=== PATIENT | female | born 1960 | race Caucasian/White ===

== ENCOUNTER 2019-08-08 15:30 | Outpatient (RCR) | payer BC, SELFPAY ==
--- NOTE | 2019-07-22 14:20 | PTOPEVAL ---
Thank you for referring this patient to [facility]. Please review, sign, date and return this plan of care LAVERNE. I agree with and certify that the following plan of care is medically necessary. Referring Physician Date Admitting Provider: Attending Provider: ASPHALT RAKER PHYSICIAN Referring Provider: *PT Outpatient Evaluation Start: 07/16/19 15:00 Freq: 1-2x/week Status: Active Protocol: Document 07/16/19 15:00 [facility] (Rec: 07/19/19 14:58 [facility] [email or web address]) Therapy Assessment Status Assessment Status Assessment Status Evaluation Outpatient Past Medical History Neurological History Hx Neurological Disorders No Significant History Cardiovascular History Hx Hypertension Yes Respiratory History Hx Respiratory Disorders No Significant History Gastrointestinal History Hx Gastrointestinal Disorders No Significant History Genitourinary History Hx Genitourinary Disorders No Significant History Musculoskeletal History Hx Arthritis Yes Hx Degenerative Disk Disease Yes: Neck and Back Hematological History Hx Hematological Disorders No Significant History Endocrine History Hx Other Endocrine Disorders Yes: Metabolic disorder HEENT History Hx HEENT Disorders No Significant History Integumentary History Hx Skin Disorders No Significant History Reproductive History Hx Reproductive Disorders No Significant History Psychosocial History Hx Psychiatric Disorders No Significant History Pain History History of Any Previous or Ongoing No Significant History Instance of Pain Anesthesia History Hx Anesthesia Reactions No Significant History Evaluation Information Problem Diagnosis Chronic knee pain Onset ~2 months ago Cause no known injury, likely arthritis Additional Evaluation Detail Meds include a HTN medication, Metformin, & Vitamins Subjective Information Pt has pain going up and down Query Text:As Reported By Patient/ steps. She is getting ready Family for a vacation that will require a lot of steps. She is also unable to ride a bike due to pain. Diagnostic Tests X-Rays For This Problem No MRI For This Problem No Previous Treatments Previous Treatments For This Problem None at this time Pain Assessment Timing of Pain Assessment Timing of Pain Assessment Assessment Self Report Self Report Pain Level 0 Self Report Pain Assessment Bilateral Reported Pain Level 0 Pain Description Aching,Stabbing,Tender on Palpation,Tightness Inte
== END 2019-10-14 13:46 | disposition home or self-care (01) ==
LOC: ANHPT 15:30
DX: M25.569 Pain in unspecified knee (principal); G89.29 Other chronic pain
CPT/HCPCS: 97035; 97110; 97140; 97161

== ENCOUNTER 2019-12-04 14:46 | Outpatient (CLI) | payer BC, SELFPAY ==
--- NOTE | ~2019-12-04 | US_ITS ---
EXAMINATION: US pelvic complete w TV EXAM DATE: 12/04/2019 15:20 INDICATION: Postmenopausal bleeding. TECHNIQUE: Pelvic transabdominal and transvaginal sonogram was performed. There are multiple graysca le and Doppler images available for interpretation. There is no prior study for comparison. FINDINGS: Uterus measures 6.1 x 3.1 x 4.3 cm, and is morphologically normal. Endometrial stripe anirudh sures 5 mm, within normal limits. There is no free pelvic fluid. Right adnexa: The ovary is not identified. There is no adnexal mass. Left adnexa: The ovary is not identified. There is no adnexal mass. IMPRESSION: 1. Unremarkable pelvic ultrasound exam. Reviewed, dictated and finalized at location A.
== END 2019-12-04 14:47 | disposition home or self-care (01) ==
LOC: ANHIMG 14:47
PROVIDERS: Visit Provider Internal Medicine
DX: N95.0 Postmenopausal bleeding (principal)
CPT/HCPCS: 76830; 76856

== ENCOUNTER 2019-12-05 15:30 | Outpatient (RCR) | payer BC, SELFPAY ==
--- NOTE | 2019-10-23 08:52 | PTOPEVAL ---
Thank you for referring Jayne Harman to [facility]. Please review, sign, date and return this plan of care LAVERNE. I agree with and certify that the following plan of care is medically necessary. Referring Physician Date Referring Provider: Connie Maria MD *PT Outpatient Re-evaluation Start: 10/15/19 08:18 Freq: 2x/week Status: Active Protocol: Document 10/15/19 16:30 [facility] (Rec: 10/23/19 08:49 [facility] [email or web address]) Therapy Assessment Status Assessment Status Assessment Status Re-evaluation Outpatient Past Medical History Neurological History Hx Neurological Disorders No Significant History Cardiovascular History Hx Hypertension Yes Musculoskeletal History Hx Arthritis Yes Hx Degenerative Disk Disease Yes: Neck and Back Hematological History Hx Hematological Disorders No Significant History Endocrine History Hx Other Endocrine Disorders Yes: Metabolic disorder Pain Assessment Timing of Pain Assessment Timing of Pain Assessment Assessment Pain Scale Pain Scale Used Numeric (1 - 10) Self Report Pain Assessment Bilateral Knee(s) Reported Pain Level 1 Pain Description Aching,Soreness,Tightness Other Pain Description Right now, not much pain but unable to go up/down steps w/o pain Greatest Pain Intensity 7 Pain Aggravating Factors Stair Climbing Pain Behaviors Guarding Pain Relief Interventions Used By Inactivity/Rest,Position Patient Change Interventions Used By Clinicians Exercise,Joint Mobilization, Mobilization,Manual Therapy Techniques,Myofascial Release Pain Score Pain Score 1: Self Report Additional Pain Score Comments Patient had been seen a couple of months ago but became ill with Covid-related symptoms for a prolonged period of time . She became weak and unable to participate in therapy. We placed her chart on Hold and she is now able to resume and participate in care. Lower Extremity Range of Motion Knee Range of Motion Bilateral Reason Not Measured WNL/Left,WNL/Right Knee Range of Motion Limitations Muscle Length Restriction Knee Range of Motion Comments Knee joint ROM itself is WNL; surrounding musculature is tight Patellar mobility is limited minimally Ankle/Foot Range of Flavio
--- NOTE | 2019-12-03 12:22 | PTOPEVAL ---
Thank you for referring Jayne Harman to [facility]. Please review, sign, date and return this plan of care LAVERNE. I agree with and certify that the following plan of care is medically necessary. Referring Physician Date Referring Provider: Connie Maria MD *PT Outpatient Evaluation Start: 10/15/19 08:18 Freq: Status: Active Protocol: Document 11/21/19 17:00 [facility] (Rec: 12/03/19 12:21 [facility] [email or web address]) Therapy Assessment Status Assessment Status Assessment Status Progress Pain Assessment Timing of Pain Assessment Timing of Pain Assessment Re-assessment Self Report Self Report Pain Level 0 Pain Score Pain Score 0: Self Report Lower Extremity Range of Motion General Lower Extremity Range of Motion Reason Not Measured WNL/Left,WNL/Right Knee Range of Motion Bilateral Reason Not Measured WNL/Left,WNL/Right Knee Range of Motion Limitations Muscle Length Restriction Knee Range of Motion Comments Knee joint ROM itself is WNL; surrounding musculature lends towards tightness but patient has been compliant with HEP. Hip availability has also improved. Patellar mobility is limited minimally Lower Extremity Muscle Strength Testing General Lower Extremity Strength Reason Not Measured WNL/Right,WFL/Left Gross Lower Extremity Strength Patient has demonstrated improved functional strength with progression of HEP and can go up and down steps in reciprocal fashion without pain. Palpation Assessment Palpation Palpation No c/o of tenderness this date . Stair Climbing Assessment Stair Climbing Assessment Stair Climbing Assistive Devices None Maintains Weight Bearing Status Yes Number of Steps Climbed (Steps) 4 Number of Repetitions (Repetitions) 5 Technique Alternating Steps Stair Climbing Direction Both Up and Down Stair Climbing Ability Independent Ability to Step Over a Curb Independent Stair Climbing Comments Pt fatigued after 20 steps but knee pain itself did not limit her. PT Clinical Summary Clinical Summary Protocol: PTEVCODE PT Clinical Summary Pt has demonstrated improvement in functional ability and strengthening. Due to her tissue make-up,
--- NOTE | 2020-02-10 10:26 | PTOPEVAL ---
Thank you for referring Jayne Harman to [facility].? The patient is discharged from physical therapy?and met her goals. Please review, sign, date and return this plan of care LAVERNE. I agree with and certify that the following plan of care is medically necessary. Referring Physician Date Attending Provider: Connie Maria MD
== END 2020-01-13 11:48 | disposition home or self-care (01) ==
LOC: ANHPT 15:30
DX: M25.562 Pain in left knee (principal); G89.29 Other chronic pain
CPT/HCPCS: 97110; 97140

== ENCOUNTER 2020-02-05 07:23 | Outpatient (CLI) | payer BC, SELFPAY ==
[2020-02-05 07:51] LABS: Basophils Percent Auto 0.8 % (0.2-1.2); Eosinophils Absolute Auto 0.1 K/mm3 (0-0.3); Eosinophils Percent Auto 1.8 % (0-4.4); Hematocrit 37.5 % (37.0-47.0); Hemoglobin 13.2 g/dL (12.0-15.0); Immature Granulocyte Absolute 0.01 K/mm3 (0.00-0.031); Immature Granulocyte Percent A 0.2 % (0-0.5); Lymphocytes Absolute Auto 1.63 K/mm3 (0.9-3.2); Mean Corpuscular HGB Conc 35.2 g/dl (32-36); Mean Corpuscular Hemoglobin 32.4 pg (26-34); Mean Corpuscular Volume 91.9 fl (80-100); Mean Platelet Volume 9.3 fl (7.4-10.4); Monocytes Absolute Auto 0.6 K/mm3 (0.1-0.6); Monocytes Percent Auto 11.9 % (2.6-8.5); Neutrophils Absolute Auto 2.6 K/mm3 (1.3-6.7); Neutrophils Percent Auto 52.3 % (45.5-73.1); Platelet Count Result 226 k/mm3 (150-375); Red Blood Count 4.08 M/mm3 (4.2-5.4); Red Cell Distribution Width 11.7 % (11.5-14.5); White Blood Count 4.9 K/mm3 (4.5-10.0)
[2020-02-05 07:58] LABS: Hemoglobin A1C 4.8 % (<5.7)
[2020-02-05 08:03] LABS: Alanine Aminotransferase 32 U/L (4-35); Albumin Level 4.3 g/dL (3.5-5.1); Alkaline Phosphatase 79 U/L (38-126); Anion Gap 8 mmol/L (8-16); Aspartate Amino Transferase 33 U/L (14-36); Bilirubin,Total 0.5 mg/dL (0.2-1.3); Blood Urea Nitrogen 15 mg/dL (7-17); Calcium 9.5 mg/dL (8.4-10.2); Carbon Dioxide 30 mmol/L (22-30); Chloride 91 mmol/L (98-107); Estimated Glomerular Filt Rate > 60; Glucose 98 mg/dL (65-105); Potassium 3.8 mmol/L (3.4-5.0); Sodium 129 mmol/L (137-145)
[2020-02-05 09:09] LABS: Hepatitis C Virus Antibody Negative (Negative)
--- NOTE | 2020-02-10 10:21 | PTOPEVAL ---
Thank you for referring Jayne Harman to [facility].? The patient has been discharged from physical therapy. She met her goal of being able to functionally ascend/descend stairs without pain/dysfunction. She is Independent with her HEP for continued strength and flexibility. Please review, sign, date and return this plan of care LAVERNE. I agree with and certify that the following plan of care is medically necessary. Referring Physician Date Attending Provider: Connie MariaMD
== END 2020-02-05 07:24 | disposition home or self-care (01) ==
PROVIDERS: Visit Provider Internal Medicine
DX: Z00.00 Encounter for general adult medical examination without abnormal findings (principal); Z11.59 Encounter for screening for other viral diseases; I10 Essential (primary) hypertension; E88.81 Metabolic syndrome and other insulin resistance; E78.5 Hyperlipidemia, unspecified
CPT/HCPCS: 36415; 80053; 83036; 85025; 86803

== ENCOUNTER 2020-04-24 13:49 | Outpatient (CLI) | payer BC, SELFPAY ==
--- NOTE | ~2020-04-24 | MM_ITS ---
EXAMINATION: MM screening yulia BI w viktoria HISTORY: Screening TECHNIQUE: Craniocaudal and mediolateral oblique 3-D tomosynthesis images were obtained and synthetic 2-D images were generated. CAD analysis was submitted and interpreted. COMPARISON: Comparison to multiple prior studies sequentially, with oldest reviewed study dated 04/15. BREAST PARENCHYMAL COMPOSITION: There are scattered areas of fibroglandular density. FINDINGS: There is no evidence of suspicious mass, calcification, or architectural distortion to sugg est malignancy in either breast. There has been no suspicious interval change. IMPRESSION: 1. No mammographic evidence of malignancy. 2. Recommend routine screening mammography in one year. BI-RADS Category 1: Negative Reviewed, dictated and finalized at location A. EL STAFF MEMBER
== END 2020-04-24 13:50 | disposition home or self-care (01) ==
PROVIDERS: PCP Internal Medicine; Visit Provider Obstetrics & Gynecology
DX: Z12.31 Encounter for screening mammogram for malignant neoplasm of breast (principal)
CPT/HCPCS: 77063; 77067

== ENCOUNTER 2021-02-04 08:04 | Outpatient (CLI) | payer BC, SELFPAY ==
[2021-02-04 08:31] LABS: Basophils Percent Auto 0.6 % (0.2-1.2); Eosinophils Absolute Auto 0.1 K/mm3 (0-0.3); Eosinophils Percent Auto 1.7 % (0-4.4); Hematocrit 39.4 % (37.0-47.0); Hemoglobin 13.3 g/dL (12.0-15.0); Immature Granulocyte Absolute 0.03 K/mm3 (0.00-0.031); Immature Granulocyte Percent A 0.5 % (0-0.5); Lymphocytes Absolute Auto 1.83 K/mm3 (0.9-3.2); Lymphocytes Percent Auto 27.9 % (18.3-44.2); Mean Corpuscular HGB Conc 33.8 g/dl (32-36); Mean Corpuscular Hemoglobin 32.1 pg (26-34); Mean Corpuscular Volume 95.2 fl (80-100); Mean Platelet Volume 9.2 fl (7.4-10.4); Monocytes Absolute Auto 0.6 K/mm3 (0.1-0.6); Monocytes Percent Auto 9.3 % (2.6-8.5); Neutrophils Absolute Auto 3.9 K/mm3 (1.3-6.7); Platelet Count Result 219 k/mm3 (150-375); Red Blood Count 4.14 M/mm3 (4.2-5.4); Red Cell Distribution Width 12.4 % (11.5-14.5); White Blood Count 6.6 K/mm3 (4.5-10.0)
[2021-02-04 08:41] LABS: Alanine Aminotransferase 35 U/L (4-35); Albumin Level 4.4 g/dL (3.5-5.1); Alkaline Phosphatase 92 U/L (38-126); Anion Gap 8 mmol/L (8-16); Aspartate Amino Transferase 38 U/L (14-36); Bilirubin,Total 0.5 mg/dL (0.2-1.3); Blood Urea Nitrogen 20 mg/dL (7-17); Calcium 9.8 mg/dL (8.4-10.2); Carbon Dioxide 32 mmol/L (22-30); Chloride 99 mmol/L (98-107); Cholesterol 207 mg/dL (0-200); Estimated Glomerular Filt Rate 51; Glucose 101 mg/dL (65-110); HDL Direct 64 mg/dL; Potassium 4.4 mmol/L (3.4-5.0); Sodium 139 mmol/L (137-145); Triglycerides 115 mg/dL (<150)
[2021-02-04 08:54] LABS: LDL Cholesterol Direct 108 mg/dL
[2021-02-04 08:58] LABS: Hemoglobin A1C 5.1 % (<5.7)
[2021-02-04 09:32] LABS: Vitamin B12 > 1000.0 pg/mL (239-931)
== END 2021-02-04 08:05 | disposition home or self-care (01) ==
LOC: ANHIMG 08:06
PROVIDERS: PCP Internal Medicine; Visit Provider Internal Medicine
DX: R41.3 Other amnesia (principal); R73.09 Other abnormal glucose; E78.5 Hyperlipidemia, unspecified; I10 Essential (primary) hypertension; Z00.00 Encounter for general adult medical examination without abnormal findings
CPT/HCPCS: 36415; 80053; 80061; 82607; 83036; 84443; 85025

== ENCOUNTER 2022-02-23 09:31 | Outpatient (CLI) | payer BC, SELFPAY ==
[2022-02-23 10:07] LABS: Basophils Absolute Auto 0.1 K/mm3 (0.0-0.1); Basophils Percent Auto 0.8 % (0.2-1.2); Eosinophils Absolute Auto 0.2 K/mm3 (0-0.3); Eosinophils Percent Auto 2.9 % (0-4.4); Hematocrit 40.9 % (37.0-47.0); Hemoglobin 14.1 g/dL (12.0-15.0); Immature Granulocyte Absolute 0.02 K/mm3 (0.00-0.031); Immature Granulocyte Percent A 0.3 % (0-0.5); Lymphocytes Absolute Auto 1.91 K/mm3 (0.9-3.2); Lymphocytes Percent Auto 30.8 % (18.3-44.2); Mean Corpuscular HGB Conc 34.5 g/dl (32-36); Mean Corpuscular Hemoglobin 31.6 pg (26-34); Mean Corpuscular Volume 91.7 fl (80-100); Monocytes Absolute Auto 0.5 K/mm3 (0.1-0.6); Monocytes Percent Auto 8.4 % (2.6-8.5); Neutrophils Absolute Auto 3.5 K/mm3 (1.3-6.7); Neutrophils Percent Auto 56.8 % (45.5-73.1); Platelet Count Result 258 k/mm3 (150-375); Red Blood Count 4.46 M/mm3 (4.2-5.4); White Blood Count 6.2 K/mm3 (4.5-10.0)
[2022-02-23 10:18] LABS: Hemoglobin A1C 5.2 % (<5.7)
[2022-02-23 10:20] LABS: Alanine Aminotransferase 41 U/L (6-35); Albumin Level 4.7 g/dL (3.5-5.1); Alkaline Phosphatase 89 U/L (38-126); Anion Gap 12 mmol/L (8-16); Aspartate Amino Transferase 42 U/L (14-36); Bilirubin,Total 0.6 mg/dL (0.2-1.3); Blood Urea Nitrogen 12 mg/dL (7-17); Calcium 9.7 mg/dL (8.4-10.2); Carbon Dioxide 29 mmol/L (22-30); Chloride 88 mmol/L (98-107); Cholesterol 204 mg/dL (0-200); Estimated Glomerular Filt Rate > 60; Glucose 105 mg/dL (65-110); HDL Direct 67 mg/dL; Phosphorus 3.6 mg/dL (2.5-4.5); Potassium 4.1 mmol/L (3.4-5.0); Sodium 129 mmol/L (137-145); Triglycerides 110 mg/dL (<150)
[2022-02-23 10:29] LABS: Parathyroid Intact 80.9 pg/mL (7.5-53.5)
[2022-02-23 10:31] LABS: LDL Cholesterol Direct 98 mg/dL
== END 2022-02-23 09:32 | disposition home or self-care (01) ==
LOC: ANHLAB 09:33
PROVIDERS: PCP Internal Medicine; Visit Provider Internal Medicine
DX: Z00.00 Encounter for general adult medical examination without abnormal findings (principal); I10 Essential (primary) hypertension; E78.5 Hyperlipidemia, unspecified; N18.31 Chronic kidney disease, stage 3a
CPT/HCPCS: 36415; 80053; 80061; 83036; 83970; 84100; 85025

== ENCOUNTER 2022-03-21 07:52 | Outpatient (CLI) | payer BC, SELFPAY ==
[2022-03-21 08:36] LABS: Alanine Aminotransferase 39 U/L (6-35); Albumin Level 4.5 g/dL (3.5-5.1); Alkaline Phosphatase 113 U/L (38-126); Anion Gap 11 mmol/L (8-16); Aspartate Amino Transferase 44 U/L (14-36); Bilirubin,Total 0.7 mg/dL (0.2-1.3); Blood Urea Nitrogen 13 mg/dL (7-17); Calcium 9.4 mg/dL (8.4-10.2); Carbon Dioxide 27 mmol/L (22-30); Chloride 104 mmol/L (98-107); Estimated Glomerular Filt Rate 57; Glucose 80 mg/dL (65-110); Potassium 4.3 mmol/L (3.4-5.0); Sodium 142 mmol/L (137-145)
[2022-03-21 09:26] LABS: Hepatitis C Virus Antibody Negative (Negative)
== END 2022-03-21 07:53 | disposition home or self-care (01) ==
PROVIDERS: PCP Internal Medicine; Visit Provider Internal Medicine
DX: Z11.59 Encounter for screening for other viral diseases (principal); G47.33 Obstructive sleep apnea (adult) (pediatric); I10 Essential (primary) hypertension
CPT/HCPCS: 36415; 80053; 86803

== ENCOUNTER 2022-03-24 07:44 | Outpatient (CLI) | payer BC, SELFPAY ==
--- NOTE | ~2022-03-24 | US_ITS ---
EXAMINATION: US right upper quadrant DATE: 03/24/2022 08:00 INDICATION: Elevated liver function tests TECHNIQUE: Multiple grayscale and Doppler ultrasound images of the abdomen were obtained. COMPARISON: None available FINDINGS: Bowel gas obscures visualization of the pancreas. The visualized portions of the pancreas a re unremarkable. The liver is normal with normal echogenicity and echotexture. No surface nodularity. Normal hepatopetal flow in the main portal vein. A stone is present in the nondistended gallbladder. There is no gallbladder wall thickening or pericholecystic fluid. The normal common bile duct measur es 3 mm. There was no sonographic García sign. IMPRESSION: 1. Cholelithiasis without evidence of cholecystitis. Reviewed, dictated and finalized at location B. BOSS
== END 2022-03-24 07:45 | disposition home or self-care (01) ==
PROVIDERS: PCP Internal Medicine; Visit Provider Internal Medicine
DX: R94.5 Abnormal results of liver function studies (principal); K80.20 Calculus of gallbladder without cholecystitis without obstruction
CPT/HCPCS: 76705

== ENCOUNTER 2022-04-05 11:39 | Observation (INO) | payer BC, SELFPAY ==
[2022-04-05] VITALS (28 sets, daily range): BP systolic 149–192; BP diastolic 64–95; PULSE 55–72; RESP 12–26; TEMP 36.2–36.8; O2SAT 94–100; BMI 32.4
--- NOTE | ~2022-04-05 | CT_ITS ---
EXAMINATION: CT brain wo con DATE: 04/05/2022 13:08 INDICATION: Headache and hypertension TECHNIQUE: Computed tomography (CT) of the head was performed without intravenous contrast. Sagittal and coronal reconstructions were performed. The mA was adjusted according to patient size. Iterative reconstruction technique was employed. The dose-length product was 681.00 mGy-cm. COMPARISON: head CT dated 02/12/2018 FINDINGS: Unchanged small old infarct at the anterior right temporal lobe. No acute intracranial hemorrhage, ac jeyson infarction or abnormal extra axial fluid collection. Ventricles are normal and symmetric. No mass /mass effect. The orbits, paranasal sinuses and mastoid air cells are normal. IMPRESSION: 1. Unchanged small old infarct at the anterior right temporal lobe. No acute intracranial process. Reviewed, dictated and finalized at location A. OF ENGLISH IMPRESSION: 1. Unchanged small old infarct at the anterior right temporal lobe. No acute in tracranial process.
--- NOTE | 2022-04-05 11:45 | ECG_ITS ---
Measurements Intervals [employer] Rate: 56 P: 20 IN: 190 QRS: 5 QRSD: 80 T: 14 QT: 435 QTc: 423 Interpretive Statements SINUS BRADYCARDIA BASELINE WANDER- V5-V6 BORDERLINE ECG NO PREVIOUS ECG AVAILABLE FOR COMPARISON Electronically Signed On 04-05-2022 14:08:53 [employer]ES [employer]PRESENT[employer] by Johnson Cote D.O.
--- NOTE | 2022-04-05 12:23 | ED.GENADULT ---
HPI - General Adult General Chief complaint: Headache Stated complaint: Headache Time Seen by Provider: 04/05/22 11:53 History of Present Illness HPI narrative: 61-year-old female with history of hypertension presenting to the emergency department for evaluation of headache. Patient states that last night she woke up with a headache. Through the night patient took multiple doses of Tylenol and ibuprofen and was having a minor improvement of the headache through the morning. Patient states that she did make it to work and her headache continued to worsen so she was instructed to check her blood pressure and she had a systolic blood pressure of greater than 200. Patient does take atenolol and lisinopril and states her blood pressure normally runs in the 110s range. Related Data Home Medications Medication Instructions Recorded Confirmed atenolol 100 mg tablet 100 mg PO BID 04/05/22 04/05/22 ibuprofen 600 mg tablet 600 mg PO QID PRN Pain 04/05/22 04/05/22 lisinopril 40 mg tablet 40 mg PO DAILY 04/05/22 04/05/22 omeprazole 20 mg capsule,delayed 20 mg PO DAILY 04/05/22 04/05/22 release Allergies Allergy/AdvReac Type Severity Reaction Status Date / Time No Known Allergies Allergy Verified 04/05/22 11:51 Review of Systems Review of Systems: CONSTITUTIONAL: Denies fever, chills, or sweats. EYES: Denies visual changes, redness, or discharge. ENT: Denies rhinorrhea, congestion, sore throat, or otalgia. CARDIOVASCULAR: Denies chest pain, palpitations, or edema. RESPIRATORY: Denies cough or dyspnea. GASTROINTESTINAL: Denies abdominal pain, nausea, vomiting, or diarrhea. GENITOURINARY: Denies dysuria or hematuria. SKIN: Denies rash or itching. MUSCULOSKELETAL: Denies back pain, joint pain, or myalgia. NEUROLOGIC: Headache but denies any associated numbness or weakness PSYCHIATRIC: Denies anxiety or depression. [facility] Past Medical History Medical History (Updated 04/05/22 @ 23:35 by Blas Posey MD) Arthritis Cerebrovascular accident Brain CT on 04/05/2022 shows and unchanged small old infarct at the anterior right temporal lobe. Gastroesophageal reflux disease Hyperlipidemia No longer on a statin following weight loss. Hypertension Obstructive sleep apnea Surgical History Surgical History (Updated 04/05/22 @ 22:09 by Kelly Hope PA-C) History of fusion of cervical spine History of sinus surgery History of wisdom tooth extraction Family History Family History Father Family history of congenital heart disease Mother Family history of chronic obstructive pulmonary disease Other Hypertension Social History Social History (Updated 04/05/22 @ 22:09 by Kelly Hope PA-C) Social History: Surrogate medical decision maker: Mariano Ingrams, spouse. Code status: Full code. Smoking status: Never smoker Alcohol intake: current Drinks per week: 7 Alcohol use details: One alcoholic beverage a night. Substance use: never Lack of Transportation: No Lack of Food: Never True Current Housing: I Have Housing Concerned About Future Housing: No Difficulty Paying Gas/Electric Bills: No Difficulty Paying for Meds: No Currently Unemployed: No Education: Associate Degree Difficulty w/ Childcare or Family Care: No Additional living arrangements comments: The patient lives with her in [place]. 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 Spiritual care concerns: No Exam Narrative: APPEARANCE: Well appearing, no pain, no distress, well-nourished. HEAD: normocephalic, atraumatic. EYES: PERRLA/EOMI, conjunctivae clear. NOSE: Normal no drainage THROAT: Pharynx clear, no exudate. NECK: Supple. No adenopathy, no masses. RESPIRATORY: Airway patent, respirations nonlabored. Clear to auscultation bilaterally, no rales, rhonchi, wheezing. CARDIOVASCULAR: Regular rate and rhyth
[2022-04-05 12:39] LABS: Basophils Percent Auto 0.8 % (0.2-1.2); Eosinophils Absolute Auto 0.1 K/mm3 (0-0.3); Eosinophils Percent Auto 2.7 % (0-4.4); Hemoglobin 13.7 g/dL (12.0-15.0); Immature Granulocyte Absolute 0.01 K/mm3 (0.00-0.031); Immature Granulocyte Percent A 0.2 % (0-0.5); Lymphocytes Absolute Auto 1.78 K/mm3 (0.9-3.2); Lymphocytes Percent Auto 33.7 % (18.3-44.2); Mean Corpuscular HGB Conc 32.6 g/dl (32-36); Mean Corpuscular Hemoglobin 31.1 pg (26-34); Mean Corpuscular Volume 95.2 fl (80-100); Mean Platelet Volume 9.8 fl (7.4-10.4); Monocytes Absolute Auto 0.6 K/mm3 (0.1-0.6); Monocytes Percent Auto 11.4 % (2.6-8.5); Neutrophils Absolute Auto 2.7 K/mm3 (1.3-6.7); Neutrophils Percent Auto 51.2 % (45.5-73.1); Platelet Count Result 235 k/mm3 (150-375); Red Blood Count 4.41 M/mm3 (4.2-5.4); Red Cell Distribution Width 13.3 % (11.5-14.5); White Blood Count 5.3 K/mm3 (4.5-10.0)
[2022-04-05 12:47] LABS: Appearance Urine Clear (Clear); Bilirubin Urine Negative (Negative); Blood Urine Negative (Negative); Color Urine Yellow (Yellow); Glucose Urine UA Negative (Negative); Ketones Urine Negative (Negative); Leukocyte Esterase Ur Trace LEU/UL (Negative); Nitrate Urine Negative (Negative); Protein Urine Negative (Negative); Specific Grav Ur 1.015 (1.001-1.035); Urobilinogen Urine 0.2 mg/dL (<2.0); pH Urine 6.5 (5.0-9.0)
[2022-04-05] MEDS: hydrALAZINE HCL 20 MG/ML VIAL 10 MG IV PUSH ×3 (12:47→20:18)
[2022-04-05 12:51] LABS: Add Urine Microscopic? YES; Bacteria Urine Trace /hpf; RBC Urine 0-2 /hpf (0-2); Squamous Epithelial Cell Urine Few /hpf (Few); WBC Urine 0-3 /hpf
[2022-04-05 12:52] LABS: Alanine Aminotransferase 31 U/L (6-35); Albumin Level 4.2 g/dL (3.5-5.1); Alkaline Phosphatase 112 U/L (38-126); Anion Gap 10 mmol/L (8-16); Aspartate Amino Transferase 34 U/L (14-36); Bilirubin,Total 0.7 mg/dL (0.2-1.3); Blood Urea Nitrogen 15 mg/dL (7-17); Calcium 9.4 mg/dL (8.4-10.2); Carbon Dioxide 27 mmol/L (22-30); Chloride 102 mmol/L (98-107); Estimated CRCL calculation 62 ml/min; Estimated Glomerular Filt Rate 57; Glucose 97 mg/dL (65-110); Sodium 139 mmol/L (137-145)
[2022-04-05] MEDS: KETOROLAC 15 MG/ML VIAL (*BKC) IV PUSH ×2 (15:55→23:12)
[2022-04-05] MEDS: amLODIPine BESYLATE 5 MG TABLET PO (15:56)
[2022-04-05] MEDS: HYDROmorphone HCL INJ (*CRX) 1 MG/ML SYR 0.5 MG IV PUSH (16:40)
[2022-04-05] MEDS: MAGNESIUM SULF 1 GM/D5W 100 ML 1 GM/100 ML BAG IVPB (16:40)
--- NOTE | 2022-04-05 18:00 | PM.IMHP ---
H&P: HPI History of Present Illness Date/Time: 04/05/22 18:00 Chief Complaint: Headache and elevated blood pressure. Narrative: This is a very pleasant 61-year-old female with hypertension who presented to the emergency department for evaluation of headache and elevated blood pressures. Two felt just fine when she went to bed last night and a little after midnight she was wakened from sleep with a doll albeit quite severe headache that seemed to start behind the left eye and radiated to the left side the head. She has mild photophobia with the headache and nausea and in fact she has had a couple of episodes of emesis this today. She took some ibuprofen was able to fall asleep a couple of hours before the headache once again woke her from sleep. She took 2 other doses of ibuprofen and a dose of acetaminophen over the next 4 hours or so. She was able to sleep a few more hours and got up at 09:00, showered, and came in to work. Unfortunately the headache continued to worsen at which time she phoned her physician who instructed her to check her blood pressure. Blood pressure was 208/103 and she was directed to the emergency department where she received magnesium, ketorolac, hydromorphone, and hydralazine with improvement in her blood pressures into the 160s over 70s. ED physician spoke with the patient's primary doctor who requested that the patient be given a dose of amlodipine 5 milligrams and she would be okay with discharge to follow-up if the blood pressure remained under better control. Unfortunately her headache continues and her blood pressures have once again started to climb, in the high 170s to low 190s systolic and she is being admitted in this setting. It is rare for her to have headaches though she has had migraines remotely. She has not had any recent cold or flu symptoms. She denies chest pain, palpitations, and shortness of breath. She has not had any neurologic symptoms and specifically she has not had vertigo, facial droop, dysarthria, focal weakness, or paresthesias. It should be noted that the patient has lost about 45 pounds since this summer and last month her chlorthalidone was discontinued due to improvements in her blood pressures. Review of Systems Review of Systems: Twelve systems were reviewed and are negative except for as per HPI. [facility] Past Medical History Medical History (Updated 04/05/22 @ 23:35 by Blas Posey MD) Arthritis Cerebrovascular accident Brain CT on 04/05/2022 shows and unchanged small old infarct at the anterior right temporal lobe. Gastroesophageal reflux disease Hyperlipidemia No longer on a statin following weight loss. Hypertension Obstructive sleep apnea Surgical History Surgical History (Updated 04/05/22 @ 22:09 by Kelly Hope PA-C) History of fusion of cervical spine History of sinus surgery History of wisdom tooth extraction Family History Family History Father Family history of congenital heart disease Mother Family history of chronic obstructive pulmonary disease Other Hypertension Social History Social History (Updated 04/05/22 @ 22:09 by Kelly Hope PA-C) Social History: Surrogate medical decision maker: Mariano Harman, spouse. Code status: Full code. Smoking status: Never smoker Alcohol intake: current Drinks per week: 7 Alcohol use details: One alcoholic beverage a night. Substance use: never Lack of Transportation: No Lack of Food: Never True Current Housing: I Have Housing Concerned About Future Housing: No Difficulty Paying Gas/Electric Bills: No Difficulty Paying for Meds: No Currently Unemployed: No Education: Associate Degree Difficulty w/ Childcare or Family Care: No Additional living arrangements comments: The patient lives with her in [place]. 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 Spiritual care
[2022-04-05] MEDS: lisinopriL 20 MG TABLET 40 MG PO (18:32)
[2022-04-05] MEDS: atenoloL 50 MG TABLET 100 MG PO (18:32)
[2022-04-05 19:23] LABS: SARS-CoV-2 RNA PCR Negative
[2022-04-05] MEDS: ONDANSETRON INJ 4 MG/2 ML VIAL IV PUSH (20:19)
--- NOTE | 2022-04-05 21:23 | ADMGEN ---
This patient, Jayne Harman, was admitted to IMU Room 2114. Patient/family oriented to hospital policies and general routines including ID bracelet, bed and alarms, visiting hours, pain management, procedures, bathroom and other care routines, personal items, smoking policy, room service/diet, and visiting hours. Information on how to activate the Rapid Response Team has been discussed. Patient/Family are encouraged to report perceived risks to care and to ask questions if they do not understand what they are told or what they should do.
[2022-04-05] MEDS: PROMETHAZINE HCL 25 MG/ML AMPUL IM (23:11)
[2022-04-06] VITALS (9 sets, daily range): BP systolic 115–167; BP diastolic 49–84; PULSE 60–89; RESP 14–20; TEMP 36.5–36.7; O2SAT 98–100
[2022-04-06 07:43] LABS: Anion Gap 7 mmol/L (8-16); Blood Urea Nitrogen 14 mg/dL (7-17); Calcium 9.3 mg/dL (8.4-10.2); Carbon Dioxide 26 mmol/L (22-30); Chloride 101 mmol/L (98-107); Estimated CRCL calculation 77 ml/min; Estimated Glomerular Filt Rate > 60; Glucose 101 mg/dL (65-110); Magnesium 1.9 mg/dL (1.6-2.3); Potassium 4.7 mmol/L (3.4-5.0); Sodium 134 mmol/L (137-145)
[2022-04-06] MEDS: hydrALAZINE HCL 20 MG/ML VIAL 10 MG IV PUSH (09:05)
[2022-04-06] MEDS: lisinopriL 20 MG TABLET 40 MG PO (11:44)
[2022-04-06] MEDS: atenoloL 50 MG TABLET 100 MG PO (11:44)
[2022-04-06] MEDS: PANTOPRAZOLE 40 MG TABLET PO (11:44)
[2022-04-06] MEDS: ACETAMINOPHEN 500 MG TABLET 1000 MG PO (11:49)
--- NOTE | 2022-04-06 14:12 | PM.DS ---
DS: Admitting Diagnosis Discharge Date 04/06/2022 Admitting Diagnosis Hypertensive urgency DS: Summary Hospital Course Hospital Course: This is a very pleasant 61-year-old female with hypertension who presented to the emergency department for evaluation of headache and elevated blood pressures. Blood pressure was 208/103 and she was directed to the emergency department where she received magnesium, ketorolac, hydromorphone, and hydralazine with improvement in her blood pressures into the 160s over 70s. ED physician spoke with the patient's primary doctor who requested that the patient be given a dose of amlodipine 5 milligrams and she would be okay with discharge to follow-up if the blood pressure remained under better control. Unfortunately her headache continues and her blood pressures have once again started to climb, in the high 170s to low 190s systolic and she is being admitted in this setting. CT head is negative. Patient's home medications of beta-alberto and lisinopril were continued and blood pressure has come back to normal. Patient advised to keep a log of her blood pressure at home and show it to her PCPs he can adjust blood pressure medications accordingly. Patient is being discharged home Time Spent with Patient Time attestation: Total time spent providing and/or coordinating discharge services: Exam Const: Other: Mildly ill-appearing female sitting up in bed. Weight: 94 kilograms. BMI: 32.5. HENMT: Other: Normocephalic, atraumatic. Nares patent. Mucosa moist. Eyes: Other: Pupils are reactive. Extraocular motions intact. Sclerae anicteric. Conjunctiva mildly injected. Neck: Other: Supple. No carotid bruits. Resp: Other: Respirations are nonlabored. Lungs are clear to auscultation bilaterally. Cardio: Other: Regular rate rhythm with normal S1-S2. GI: Other: Abdomen is soft, nontender, and nondistended with positive bowel sounds. Skin: Other: Warm and dry. No rash or lesion on limited exam. Neuro: Other: Alert and oriented. Cranial nerves 2-12 are grossly intact. No facial asymmetry. Speech is clear. No pronator drift. Normal vvhqfp-[id number]-lfil and rapid alternating movements. Strength 5/5 throughout. Sensation intact. Extrem: Other: No cyanosis, clubbing, or edema. Peripheral pulses intact. Psych: Other: Pleasant and cooperative. Appropriate mood and affect. DS: Data Data Completed and Pending Labs on day of discharge: Labs from last 24 hours 04/06/22 04/05/22 04:28 18:28 Sodium 134 L Potassium 4.7 Chloride 101 Carbon Dioxide 26 Anion Gap 7 L BUN 14 Creatinine 0.80 Estim Creat Clear Calc 77 Estimated GFR > 60 Glucose 101 Calcium 9.3 Magnesium 1.9 SARS-CoV-2 RNA (RT-PCR) Negative Discharge Plan Discharge Discharging Clinician: David Wagner Anticipated Discharge Date/Time: 04/06/22 11:51 Patient Disposition: Home, Self-Care Activity: september shower Diet: heart healthy Patient Instructions: Hypertensive Crisis (DC) Stand Alone Forms: General Discharge Information Follow-up/Referrals: Heladio,Connie Farrell MD [Primary Care Provider] - Discharge Medications: Continued atenolol 100 mg tablet 100 mg PO BID omeprazole 20 mg capsule,delayed release(DR/EC) 20 mg PO DAILY lisinopril 40 mg tablet 40 mg PO DAILY Discontinued ibuprofen 600 mg tablet 600 mg PO QID PRN (Reason: Pain) Date of admission: 04/05/22 18:01 Primary Care Provider: HeladioConnie Admitting Provider: Abiel Bach Attending physician on admission: David Wagner Condition: Stable
== END 2022-04-06 14:00 | disposition home or self-care (01) ==
LOC: ANHED 15:37 → ANHIMU 20:26
PROVIDERS: Physician Assistant; Admitting Provider Chiropractor; Emergency Provider Emergency Medicine; PCP Internal Medicine; Visit Provider Hospitalist
DX: I16.0 Hypertensive urgency (principal); I11.9 Hypertensive heart disease without heart failure; R51.9 Headache, unspecified; R11.2 Nausea with vomiting, unspecified; H53.149 Visual discomfort, unspecified; G47.33 Obstructive sleep apnea (adult) (pediatric); R00.1 Bradycardia, unspecified; K21.9 Gastro-esophageal reflux disease without esophagitis; M19.90 Unspecified osteoarthritis, unspecified site; E78.5 Hyperlipidemia, unspecified; F10.90 Alcohol use, unspecified, uncomplicated; Z20.822 Contact with and (suspected) exposure to COVID-19; Z86.73 Personal history of transient ischemic attack (TIA), and cerebral infarction without residual deficits; Z79.1 Long term (current) use of non-steroidal anti-inflammatories (NSAID); Z79.899 Other long term (current) drug therapy; Z82.49 Family history of ischemic heart disease and other diseases of the circulatory system
CPT/HCPCS: 36415; 70450; 80048; 80053; 81001; 83735; 85025; 93005; 96365; 96372; 96375; 96376; 99285; A9270; G0378; J0131; J0360; J1170; J1885; J2405; J2550; J3475; U0003; U0005

== ENCOUNTER 2022-06-02 13:22 | Outpatient (CLI) | payer BC, SELFPAY ==
--- NOTE | ~2022-06-02 | MM_ITS ---
EXAMINATION: MM screening [facility] BI w viktoria HISTORY: Screening mammogram TECHNIQUE: Craniocaudal and mediolateral oblique 3-D tomosynthesis images were obtained and synthetic 2-D images were generated. CAD analysis was submitted and interpreted. COMPARISON: 04/24/2020, 02/22/2019, 11/08/2016 BREAST PARENCHYMAL COMPOSITION: There are scattered areas of fibroglandular density. FINDINGS: No suspicious mass, calcification, or architectural distortion are identified in either ronit ast to suggest malignancy. There has been no suspicious interval change. IMPRESSION: 1. No mammographic evidence of malignancy. 2. Recommend routine screening mammography in one year. BI-RADS Category 1: Negative Reviewed, dictated and finalized at location A. CUTTER
== END 2022-06-02 13:23 | disposition home or self-care (01) ==
PROVIDERS: PCP Internal Medicine; Visit Provider Obstetrics & Gynecology
DX: Z12.31 Encounter for screening mammogram for malignant neoplasm of breast (principal)
CPT/HCPCS: 77063; 77067

== ENCOUNTER 2022-06-06 08:06 | Outpatient (CLI) | payer BC, SELFPAY ==
[2022-06-06 08:50] LABS: Alanine Aminotransferase 34 U/L (6-35); Albumin Level 4.5 g/dL (3.5-5.1); Alkaline Phosphatase 123 U/L (38-126); Anion Gap 7 mmol/L (8-16); Aspartate Amino Transferase 33 U/L (14-36); Bilirubin,Total 0.8 mg/dL (0.2-1.3); Blood Urea Nitrogen 18 mg/dL (7-17); Calcium 9.4 mg/dL (8.4-10.2); Carbon Dioxide 27 mmol/L (22-30); Chloride 93 mmol/L (98-107); Estimated Glomerular Filt Rate 57; Glucose 85 mg/dL (65-110); Sodium 127 mmol/L (137-145)
== END 2022-06-06 08:07 | disposition home or self-care (01) ==
LOC: ANHLAB 08:10
PROVIDERS: PCP Internal Medicine
DX: I10 Essential (primary) hypertension (principal)
CPT/HCPCS: 36415; 80053

== ENCOUNTER 2022-07-07 08:22 | Outpatient (CLI) | payer BC, SELFPAY ==
[2022-07-07 09:22] LABS: Anion Gap 7 mmol/L (8-16); Blood Urea Nitrogen 18 mg/dL (7-17); Carbon Dioxide 30 mmol/L (22-30); Chloride 105 mmol/L (98-107); Estimated Glomerular Filt Rate > 60; Glucose 88 mg/dL (65-110); Potassium 4.6 mmol/L (3.4-5.0); Sodium 142 mmol/L (137-145)
== END 2022-07-07 08:23 | disposition home or self-care (01) ==
PROVIDERS: PCP Internal Medicine; Visit Provider Internal Medicine
DX: I10 Essential (primary) hypertension (principal)
CPT/HCPCS: 36415; 80048

== ENCOUNTER 2022-10-21 08:56 | Emergency (ER) | payer BC, SELFPAY ==
[2022-10-21] VITALS (16 sets, daily range): BP systolic 141–163; BP diastolic 66–85; PULSE 62–75; RESP 8–25; O2SAT 96–100
--- NOTE | ~2022-10-21 | XR_ITS ---
EXAMINATION: XR chest 2V DATE: 10/21/2022 09:56 INDICATION: Stroke. Vision change. TECHNIQUE: Frontal and lateral views of the chest were obtained. COMPARISON: Chest 2 views 02/12/2018 FINDINGS: The chest demonstrates clear lungs without pneumonia, pleural effusion, or pneumothorax. Th e heart size is normal. There are changes of anterior fusion procedure in cervical spine. There is mi ld chronic anterior wedging of T11 and T12 vertebral bodies. IMPRESSION: 1. No acute cardiopulmonary disease. Reviewed, dictated and finalized at location A.
--- NOTE | ~2022-10-21 | CT_ITS ---
EXAMINATION: CTA brain carotid DATE: 10/21/2022 10:12 INDICATION: Left eye vision change. TECHNIQUE: Computed tomographic angiography (CTA) of the head was performed without and with 100 mL O mnipaque-350 intravenous contrast. CTA of the neck was performed with intravenous contrast. Automated exposure control and iterative reconstruction technique were employed. The dose-length product was 1 729.10 mGy-cm. Maximum intensity projection and volume rendered 3D-reconstructions were created by tara mayers technologist on a separate workstation. COMPARISON: Head CT 04/05/2022, brain MRI 02/23/2016 FINDINGS: HEAD CTA: There is a small old infarct in right temporal lobe. There is no intracranial hemorrhage, a cute infarction, or abnormal intracranial mass lesion. The ventricles are normal in size. The paranas al sinuses are clear. The orbits are normal. There is a screw in left zygoma. There is a dislodged sc rew superficial to right maxillary sinus. The mastoid air cells are normal. The left vertebral artery is dominant. There is no significant stenosis of basilar artery or the posterior cerebral arteries. There is no significant stenosis of the intracranial internal carotid arteries or anterior or middle cerebral arteries. Anterior communicating artery is normal. The posterior communicating arteries are normal. There is no aneurysm. NECK CTA: There is mild scarring at the lung apices. There are no pathologically enlarged lymph nodes . There is a 5 mm nodule in right thyroid lobe, likely not clinically significant. There is mild plaq ue in the proximal internal carotid arteries. There is 0% stenosis of the proximal right internal car otid artery relative to normal distal artery lumen diameter (NASCET criteria). There is 0% stenosis o f the proximal left internal carotid artery relative to normal distal artery lumen diameter. There is severe cervical spondylosis. There are changes of anterior fusion procedure at C5-C6. IMPRESSION: 1. Small old infarct in right temporal lobe. 2. No aneurysm or significant intracranial arterial stenosis. 3. 0% stenosis of the proximal internal carotid arteries relative to normal distal artery lumen diame ters (NASCET criteria). Reviewed, dictated and finalized at location A. IMPRESSION: 1. Small old infarct in right temporal lobe. 2. No aneurysm or significant intracranial arterial stenosis. 3. 0% stenosis of the proximal internal carotid arteries relative to normal dis ange artery lumen diameters (NASCET criteria).
--- NOTE | 2022-10-21 08:59 | PC.NURSE ---
Patient report she was sitting in her office doing her normal work when she noticed some visual defect. She reports she was looking at words on the computer and it was like an arch was around the letters with bright light and sharp points off of the arch. Patient reports history of HTN and issues with her blood pressure but went to another department and checked her BP and reported it normal. Patient reports she spoke to a doctor in [place] and he told her it could be concerning for a stroke. Patient ambulatory to the ED with her normal cane, exhibits no weakness or drift, no facial droop noted, and no change in speech.
--- NOTE | 2022-10-21 09:07 | ECG_ITS ---
Measurements Intervals [place] Rate: 61 P: 8 ID: 156 QRS: 14 QRSD: 85 T: 17 QT: 374 QTc: 378 Interpretive Statements SINUS RHYTHM WITHIN NORMAL LIMITS COMPARED TO ECG 04/05/2022 12:12:26 NO DIFFERENCE Electronically Signed On 10-21-2022 12:52:01 CDT by Abiel Delatorre M.D.
--- NOTE | 2022-10-21 09:18 | PC.NURSE ---
Patient reports the arc is now gone and she no longer sees the bright white area or spikes.
[2022-10-21 09:34] LABS: Basophils Percent Auto 0.7 % (0.2-1.2); Eosinophils Absolute Auto 0.1 K/mm3 (0-0.3); Eosinophils Percent Auto 1.4 % (0-4.4); Hematocrit 41.4 % (37.0-47.0); Hemoglobin 13.4 g/dL (12.0-15.0); Immature Granulocyte Absolute 0.01 K/mm3 (0.00-0.031); Immature Granulocyte Percent A 0.2 % (0-0.5); Lymphocytes Absolute Auto 1.73 K/mm3 (0.9-3.2); Lymphocytes Percent Auto 30.5 % (18.3-44.2); Mean Corpuscular HGB Conc 32.4 g/dl (32-36); Mean Corpuscular Hemoglobin 30.2 pg (26-34); Mean Corpuscular Volume 93.5 fl (80-100); Mean Platelet Volume 9.7 fl (7.4-10.4); Monocytes Absolute Auto 0.6 K/mm3 (0.1-0.6); Monocytes Percent Auto 10.8 % (2.6-8.5); Neutrophils Absolute Auto 3.2 K/mm3 (1.3-6.7); Neutrophils Percent Auto 56.4 % (45.5-73.1); Platelet Count Result 221 k/mm3 (150-375); Red Blood Count 4.43 M/mm3 (4.2-5.4); Red Cell Distribution Width 13.7 % (11.5-14.5); White Blood Count 5.7 K/mm3 (4.5-10.0)
[2022-10-21 09:42] LABS: INR 0.9; Prothrombin Time 12.4 Seconds (11.1-14.7)
[2022-10-21 09:43] LABS: Partial Thromboplastin Time 32.6 SECONDS (22.3-36.8)
[2022-10-21 09:46] LABS: Troponin I < 0.012 ng/mL (0.000-0.034)
[2022-10-21 09:51] LABS: Alanine Aminotransferase 41 U/L (6-35); Albumin Level 4.4 g/dL (3.5-5.1); Alkaline Phosphatase 87 U/L (38-126); Anion Gap 5 mmol/L (8-16); Aspartate Amino Transferase 48 U/L (14-36); Bilirubin,Total 0.6 mg/dL (0.2-1.3); Blood Urea Nitrogen 18 mg/dL (7-17); Calcium 9.4 mg/dL (8.4-10.2); Carbon Dioxide 32 mmol/L (22-30); Chloride 104 mmol/L (98-107); Estimated CRCL calculation 64 ml/min; Estimated Glomerular Filt Rate 56; Glucose 94 mg/dL (65-110); Potassium 4.8 mmol/L (3.4-5.0); Sodium 141 mmol/L (137-145)
--- NOTE | 2022-10-21 11:57 | ED.GENADULT ---
HPI - General Adult General Chief complaint: Unspecified Stated complaint: neuro sx Time Seen by Provider: 10/21/22 08:57 History of Present Illness HPI narrative: Patient is a 62-year-old female who presents ER with visual disturbance. Reports at around 8:45 AM she began having bright lights in her left eye. It out in the periphery of her vision. Its become rainbow in color as well. She discussed case with someone in her department who recommended she be evaluated in the ER as she may be having a stroke. Patient has no facial droop or weakness. Denies slurred speech. No weakness or numbness in arm or leg. She has no history of migraines. She does not have a headache at this time. She was looking at her computer monitor when it occurred. Related Data Home Medications Medication Instructions Recorded Confirmed atenolol 100 mg tablet 100 mg PO BID 04/05/22 04/05/22 lisinopril 40 mg tablet 40 mg PO DAILY 04/05/22 04/05/22 omeprazole 20 mg capsule,delayed 20 mg PO DAILY 04/05/22 04/05/22 release Allergies Allergy/AdvReac Type Severity Reaction Status Date / Time No Known Allergies Allergy Verified 10/21/22 09:06 Review of Systems Review of Systems: All systems reviewed & are unremarkable except as noted in HPI and below Eyes: Eyes: Denies irritation, Denies loss of peripheral vision, Denies loss of vision and Reports other visual disturbances (Bright light and rainbow coloring left lateral and upper peripheral vision) Cardiovascular: Cardiovascular: Reports no additional cardiovascular complaints Respiratory: Respiratory: Reports no additional respiratory complaints Gastrointestinal: Gastrointestinal: Reports no additional gastrointestinal complaints Musculoskeletal: Musculoskeletal: Reports no additional musculoskeletal complaints Neurologic: Reports system reviewed and no additional complaints, except as documented [facility] Past Medical History Medical History (Updated 10/21/22 @ 12:01 by Chester Gómez MD) Arthritis Cerebrovascular accident Brain CT on 04/05/2022 shows and unchanged small old infarct at the anterior right temporal lobe. Gastroesophageal reflux disease Hyperlipidemia No longer on a statin following weight loss. Hypertension Obstructive sleep apnea Surgical History Surgical History (Updated 04/05/22 @ 22:09 by Kelly Hope PA-C) History of fusion of cervical spine History of sinus surgery History of wisdom tooth extraction Family History Family History Father Family history of congenital heart disease Mother Family history of chronic obstructive pulmonary disease Other Hypertension Social History Social History (Updated 04/05/22 @ 22:09 by Kelly Hope PA-C) Social History: Surrogate medical decision maker: Mariano Harman, spouse. Code status: Full code. Smoking status: Never smoker Alcohol intake: current Drinks per week: 7 Alcohol use details: One alcoholic beverage a night. Substance use: never Lack of Transportation: No Lack of Food: Never True Current Housing: I Have Housing Concerned About Future Housing: No Difficulty Paying Gas/Electric Bills: No Difficulty Paying for Meds: No Currently Unemployed: No Education: Associate Degree Difficulty w/ Childcare or Family Care: No Additional living arrangements comments: The patient lives with her in [place]. 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 Spiritual care concerns: No Exam Narrative: GENERAL: Well-appearing, well-nourished, and in no acute distress. HEAD: Normocephalic, atraumatic. EYES: PERRL and EOMI. ENT: Mucous membranes moist. CHEST: Clear to auscultation. No respiratory distress. HEART: Regular rate and rhythm. Normal peripheral pulses. ABDOMEN: Soft, nontender, nondistended. EXTREMITIES: Normal range of motion. No edema. SKIN: Warm
== END 2022-10-21 12:13 | disposition home or self-care (01) ==
PROVIDERS: Emergency Provider Emergency Medicine; PCP Internal Medicine
DX: H53.8 Other visual disturbances (principal); I10 Essential (primary) hypertension; M19.90 Unspecified osteoarthritis, unspecified site; K21.9 Gastro-esophageal reflux disease without esophagitis; G47.33 Obstructive sleep apnea (adult) (pediatric); Z86.73 Personal history of transient ischemic attack (TIA), and cerebral infarction without residual deficits; Z98.1 Arthrodesis status
CPT/HCPCS: 36415; 70496; 70498; 71046; 80053; 84484; 85025; 85610; 85730; 93005; 99284; Q9967

== ENCOUNTER → 2022-11-07 13:52 | Outpatient (CLI) | payer BC, SELFPAY ==
--- NOTE | ~2022-11-07 | MR_ITS ---
EXAMINATION: MR brain/brain stem wo con DATE: 11/07/2022 14:34 INDICATION: Vision changes. Stroke. TECHNIQUE: Magnetic resonance imaging (MRI) of the brain and brainstem was performed without intraven ous contrast. Sequences included sagittal and axial T1-weighted SE, axial diffusion-weighted FS SE, a xial T2*-weighted GRE, axial 3D SWAN, axial T2-weighted FLAIR, and axial T2-weighted FSE. Apparent di ffusion coefficient (ADC) maps were created. COMPARISON: None. FINDINGS: There are no areas of restricted diffusion to suggest acute infarction. No intracranial hemorrhage or abnormal intracranial mass lesion. There are no intraparenchymal signal abnormalities seen on the ot her pulse sequences. The ventricles are symmetric and normal in size. There are no abnormal extra-axi al fluid collections. Flow voids are seen in the cerebral arteries on the T2-weighted sequences consi stent with their expected patency. Small foci of susceptibility artifact associated with small metall ic screws along the bilateral anterior orbital rims. Visualized orbits and soft tissues are otherwise unremarkable. IMPRESSION: 1. Normal for age brain. No acute intracranial process. Reviewed, dictated and finalized at location A.
== END ==
PROVIDERS: PCP Internal Medicine; Visit Provider Internal Medicine
DX: H53.9 Unspecified visual disturbance (principal); Z86.73 Personal history of transient ischemic attack (TIA), and cerebral infarction without residual deficits
CPT/HCPCS: 70551

== ENCOUNTER 2023-03-31 07:15 | Outpatient (CLI) | payer BC, SELFPAY ==
[2023-03-31 08:44] LABS: Basophils Percent Auto 0.5 % (0.2-1.2); Eosinophils Absolute Auto 0.2 K/mm3 (0-0.3); Eosinophils Percent Auto 2.7 % (0-4.4); Hematocrit 41.6 % (37.0-47.0); Hemoglobin 13.1 g/dL (12.0-15.0); Immature Granulocyte Absolute 0.02 K/mm3 (0.00-0.031); Immature Granulocyte Percent A 0.4 % (0-0.5); Lymphocytes Absolute Auto 1.65 K/mm3 (0.9-3.2); Lymphocytes Percent Auto 30.2 % (18.3-44.2); Mean Corpuscular HGB Conc 31.5 g/dl (32-36); Mean Corpuscular Hemoglobin 29.6 pg (26-34); Mean Corpuscular Volume 93.9 fl (80-100); Monocytes Absolute Auto 0.6 K/mm3 (0.1-0.6); Neutrophils Percent Auto 55.2 % (45.5-73.1); Platelet Count Result 241 k/mm3 (150-375); Red Blood Count 4.43 M/mm3 (4.2-5.4); Red Cell Distribution Width 15.1 % (11.5-14.5); White Blood Count 5.5 K/mm3 (4.5-10.0)
[2023-03-31 09:03] LABS: Alanine Aminotransferase 45 U/L (6-35); Albumin Level 4.2 g/dL (3.5-5.1); Alkaline Phosphatase 98 U/L (38-126); Anion Gap 11 mmol/L (8-16); Aspartate Amino Transferase 44 U/L (14-36); Bilirubin,Total 0.5 mg/dL (0.2-1.3); Blood Urea Nitrogen 17 mg/dL (7-17); Calcium 9.8 mg/dL (8.4-10.2); Carbon Dioxide 28 mmol/L (22-30); Chloride 104 mmol/L (98-107); Cholesterol 228 mg/dL (0-200); Estimated Glomerular Filt Rate 50; Glucose 99 mg/dL (65-110); HDL Direct 61 mg/dL; Potassium 4.7 mmol/L (3.4-5.0); Sodium 143 mmol/L (137-145); Triglycerides 123 mg/dL (<150)
[2023-03-31 09:14] LABS: LDL Cholesterol Direct 117 mg/dL
== END 2023-03-31 07:16 | disposition home or self-care (01) ==
LOC: ANHLAB 07:17
PROVIDERS: PCP Internal Medicine; Visit Provider Internal Medicine
DX: Z00.00 Encounter for general adult medical examination without abnormal findings (principal); E78.5 Hyperlipidemia, unspecified; I10 Essential (primary) hypertension; R73.09 Other abnormal glucose
CPT/HCPCS: 36415; 80053; 80061; 83036; 85025

== ENCOUNTER 2023-08-29 08:18 | Outpatient (CLI) | payer BC, SELFPAY ==
[2023-08-29 09:44] LABS: Alanine Aminotransferase 43 U/L (6-35); Albumin Level 4.6 g/dL (3.5-5.1); Alkaline Phosphatase 102 U/L (38-126); Anion Gap 6 mmol/L (4-12); Aspartate Amino Transferase 40 U/L (14-36); Bilirubin,Total 0.8 mg/dL (0.2-1.3); Blood Urea Nitrogen 16 mg/dL (7-17); Calcium 9.8 mg/dL (8.4-10.2); Carbon Dioxide 29 mmol/L (22-30); Chloride 105 mmol/L (98-107); Estimated Glomerular Filt Rate 56; Glucose 110 mg/dL (65-110); Potassium 4.3 mmol/L (3.4-5.0); Sodium 140 mmol/L (137-145)
== END 2023-08-29 08:19 | disposition home or self-care (01) ==
LOC: ANHIMG 08:22 → ANHLAB 08:24
PROVIDERS: PCP Internal Medicine; Visit Provider Internal Medicine
DX: I10 Essential (primary) hypertension (principal)
CPT/HCPCS: 36415; 80053

== ENCOUNTER 2023-10-30 07:55 | Outpatient (CLI) | payer BC, SELFPAY ==
--- NOTE | ~2023-10-30 | US_ITS ---
EXAMINATION: US retroperitoneal duplex ltd DATE: 10/30/2023 08:14 INDICATION: Uncontrolled hypertension. TECHNIQUE: Multiple grayscale, color Doppler, and pulsed Doppler images of the kidneys and renal kim ines were obtained. COMPARISON: None. FINDINGS: The aorta peak systolic velocity was not measured. The right renal artery peak systolic velocity is 1 25 cm/s in the proximal segment, 87 cm/s in the mid segment, and 108 cm/s in the distal segment. The left renal artery peak systolic velocity is 129 cm/s in the proximal segment, 125 cm/s in the mid seg ment, and 61 cm/s in the distal segment. IMPRESSION: 1. No Doppler evidence of renal artery stenosis. Reviewed, dictated and finalized at location E.
== END 2023-10-30 07:56 ==
LOC: GOSHIMG 07:56
PROVIDERS: PCP Internal Medicine; Visit Provider Internal Medicine
DX: I10 Essential (primary) hypertension (principal)
CPT/HCPCS: 93976

== ENCOUNTER 2023-11-03 13:25 | Outpatient (CLI) | payer BC, SELFPAY | END 2023-11-03 13:26 | disposition home or self-care (01) | PROVIDERS: PCP Internal Medicine; Visit Provider Internal Medicine | DX: I10 Essential (primary) hypertension (principal) | CPT/HCPCS: 36415; 82088 ==

== ENCOUNTER 2023-12-12 11:51 | Outpatient (CLI) | payer BC, SELFPAY ==
--- NOTE | ~2023-12-12 | MM_ITS ---
EXAMINATION: MM screening [facility] BI w viktoria HISTORY: Screening TECHNIQUE: Craniocaudal and mediolateral oblique 3-D tomosynthesis images were obtained and synthetic 2-D images were generated. CAD analysis was submitted and interpreted. COMPARISON: Comparison to multiple prior studies sequentially, with oldest reviewed study dated 04/16. BREAST PARENCHYMAL COMPOSITION: Not dense: There are scattered areas of fibroglandular density. FINDINGS: There is no evidence of suspicious mass, calcification, or architectural distortion to sugg est malignancy in either breast. There has been no suspicious interval change. IMPRESSION: 1. No mammographic evidence of malignancy. 2. Recommend routine screening mammography in one year. BI-RADS Category 1: Negative Reviewed, dictated and finalized at location B.
== END 2023-12-12 11:52 | disposition home or self-care (01) ==
LOC: ANHIMG 11:53
PROVIDERS: PCP Internal Medicine; Visit Provider Obstetrics & Gynecology
DX: Z12.31 Encounter for screening mammogram for malignant neoplasm of breast (principal)
CPT/HCPCS: 77063; 77067

== ENCOUNTER 2024-02-05 10:58 | Outpatient (CLI) | payer BC, SELFPAY ==
[2024-02-13 16:44] LABS: PRA 0.58
== END 2024-02-05 10:59 | disposition home or self-care (01) ==
PROVIDERS: PCP Internal Medicine; Visit Provider Internal Medicine
DX: I10 Essential (primary) hypertension (principal)
CPT/HCPCS: 36415; 82088; 84244

== ENCOUNTER 2024-03-18 11:10 | Outpatient (CLI) | payer BC, SELFPAY ==
[2024-03-18 11:33] LABS: Anion Gap 11 mmol/L (4-12); Blood Urea Nitrogen 19 mg/dL (7-17); Calcium 10.1 mg/dL (8.4-10.2); Carbon Dioxide 28 mmol/L (22-30); Chloride 102 mmol/L (98-107); Estimated Glomerular Filt Rate 42; Glucose 97 mg/dL (65-110); Potassium 4.7 mmol/L (3.4-5.0); Sodium 141 mmol/L (137-145)
== END 2024-03-18 11:11 | disposition home or self-care (01) ==
LOC: ANHLAB 11:11
PROVIDERS: PCP Internal Medicine; Visit Provider Internal Medicine
DX: I10 Essential (primary) hypertension (principal)
CPT/HCPCS: 36415; 80048

== ENCOUNTER 2024-09-03 09:15 | Outpatient (CLI) | payer BC, SELFPAY ==
[2024-09-03 09:50] LABS: Basophils Percent Auto 0.5 % (0.2-1.2); Eosinophils Absolute Auto 0.2 K/mm3 (0-0.3); Eosinophils Percent Auto 2.4 % (0-4.4); Hematocrit 39.3 % (37.0-47.0); Hemoglobin 12.3 g/dL (12.0-15.0); Immature Granulocyte Absolute 0.04 K/mm3 (0.00-0.031); Immature Granulocyte Percent A 0.5 % (0-0.5); Lymphocytes Absolute Auto 2.08 K/mm3 (0.9-3.2); Lymphocytes Percent Auto 27.4 % (18.3-44.2); Mean Corpuscular HGB Conc 31.3 g/dl (32-36); Mean Corpuscular Volume 95.9 fl (80-100); Mean Platelet Volume 9.5 fl (7.4-10.4); Monocytes Absolute Auto 0.7 K/mm3 (0.1-0.6); Monocytes Percent Auto 9.7 % (2.6-8.5); Neutrophils Absolute Auto 4.5 K/mm3 (1.3-6.7); Neutrophils Percent Auto 59.5 % (45.5-73.1); Platelet Count Result 214 k/mm3 (150-375); Red Cell Distribution Width 13.7 % (11.5-14.5); White Blood Count 7.6 K/mm3 (4.5-10.0)
[2024-09-03 10:10] LABS: Hemoglobin A1C 5.7 % (<5.7)
[2024-09-03 10:16] LABS: Alanine Aminotransferase 37 U/L (6-35); Albumin Level 4.1 g/dL (3.5-5.1); Alkaline Phosphatase 100 U/L (38-126); Anion Gap 8 mmol/L (4-12); Aspartate Amino Transferase 28 U/L (14-36); Bilirubin,Total 0.4 mg/dL (0.2-1.3); Blood Urea Nitrogen 22 mg/dL (7-17); Calcium 9.8 mg/dL (8.4-10.2); Carbon Dioxide 28 mmol/L (22-30); Chloride 104 mmol/L (98-107); Cholesterol 200 mg/dL (0-200); Estimated Glomerular Filt Rate 46; Glucose 110 mg/dL (65-110); HDL Direct 65 mg/dL; LDL Cholesterol Direct 82 mg/dL; Sodium 140 mmol/L (137-145); Triglycerides 109 mg/dL (<150)
--- OUTSIDE RECORDS SUMMARY | 2024-09-03 10:17 | XMS_ITS | Encounter Summary ---
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 Historical Provider Final Res ult * SCAN - LABS (02/15/2018 12:00 AM CDT) Narrative 02/15/2018 12:00 AM CDT Ordered by an unspecified provider. us Historical Provider Final Res ult * SCAN - LABS (02/15/2018 12:00 AM CDT) Narrative 02/15/2018 12:00 AM CDT Ordered by an unspecified provider. us Historical Provider Final Res ult * CARDIOLOGY REPORT (02/15/2018 12:00 AM CDT) Anatomical Region Laterality Modality Other Narrative 02/15/2018 12:00 AM CDT Ordered by an unspecified provider. Historical Provider [facility] [place] Final Result documented in this encounter Visit Diagnoses Not on filedocumented in this encounter Additional Health Concerns Infection Onset Date Last Indicated Resolved Time COVID: Suspected 09/03/2019 09/03/2019 09/17/2019 3:06 AM CDT COVID19 Comment:JULY AND NEG IN 03/16/2020 03/15/2020 documented as of this encounter Care Teams Pet Caregiver Relationship Specialty Start Date End Date Connie Maria MD PCP - General Internal Medicine 02/12/18 documented as of this encounter
--- OUTSIDE RECORDS SUMMARY | 2024-09-03 10:17 | XMS_ITS | Encounter Summary ---
Author Organization [facility] Address [address] [place] [address] Care Team Providers Care Project Management Instructor Name Role Phone Connie Maria MD Primary Care Provider Encounter Details Date Type Department Care Team (Late st Contact Info) Description 01/31/2008 Orders Only [facility] Health Information Management [address] [place] [address] Scanning, Provider Social History Tobacco Use Types Packs/Day Years Used Date Smoking Tobacco: Never Assessed Comments Unknown Sex and Gender Information Value Date Recorded Sex Assigned at Not on file 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 Gender Identity Not on file Sexual Orientation Not on file documented as of this encounter Plan of Treatment Not on file documented as of this encounter Procedures Procedure Name Priority Date/Time Associated Diagnosis Comments PULMONARY - RESULT SCAN 01/31/2008 documented in this encounter Results * PULMONARY - RESULT SCAN (01/31/2008) Anatomical Region Laterality Modality Other us Provider Scanning Final Result documented in this encounter Visit Diagnoses Not on filedocumented in this encounter Additional Health Concerns Infection Onset Date Last Indicated Resolved Time COVID: Suspected 09/03/2019 09/03/2019 09/17/2019 3:06 AM CDT COVID19 Comment:JULY AND NEG IN 03/16/2020 03/15/2020 documented as of this encounter Care Teams Project Management Instructor Relationship Specialty Start Date End Date Connie Maria MD PCP - General Internal Medicine 02/12/18 documented as of this encounter
--- OUTSIDE RECORDS SUMMARY | 2024-09-03 10:18 | XMS_ITS | Clinical Summary ---
Author Organization [facility] [address] Address [address] [place] [address] Care Team Providers Care Activities Counselor Name Role Phone Connie Maria MD Primary Care Provider Allergies No known active allergies Medications aspirin 81 mg chewable tablet Take 1 tablet (81 mg total) by mouth daily Active mometasone (NASONEX) 50 mcg/actuation nasal spray Administer 2 sprays into each nostril daily Active oxymetazoline HCl (VICKS SINEX ULTRA FINE MIST 12 NASL) Administer into affected nostril(s) Active clobetasoL (TEMOVATE) 0.05 % ointment Apply topically 2 (two) times a day 60 g 2 4 Active cholecalciferol, vitamin D3, (D3-5000 ORAL) Take by mouth A ctive zinc gluconate 30 mg tablet Take by mouth Act david magnesium oxide 400 mg magnesium capsule Take by mouth Active pyridoxine (VITAMIN B-6) 100 mg tablet Take 1 tablet (100 mg total) by mouth daily Active cyanocobalamin, vitamin B-12, (B-12 DOTS ORAL) Take by mouth Active atorvastatin (LIPITOR) 40 mg tablet Take 1 tablet (40 mg total) by mouth daily 90 tablet 3 4 Active diclofenac sodium (VOLTAREN) 1 % gel APPLY 4 GRAMS TOPICALLY 4 TIMES A DAY 400 g 1 4 Active carvediloL (COREG) 25 mg tablet Take 1 tablet (25 mg total) by mouth 2 (two) times a day with meals 180 tablet 3 4 02/02/20 25 Active hydrALAZINE (APRESOLINE) 50 mg tabletIndication s:hypertension Take 1 tablet (50 mg total) by mouth 3 (three) times a day 90 tablet 11 4 Active spironolactone (ALDACTONE) 25 mg tablet Take 1 tablet (25 mg total) by mouth daily 30 tablet 11 4 03/05/20 25 Active furosemide (LASIX) 20 mg tablet TAKE 1 TABLET DAILY NEEDED FOR SWELLING 90 tablet 1 4 Active omeprazole (PriLOSEC) 20 mg capsuleIndicatio ns:Gastroesophag eal reflux disease without esophagitis TAKE 1 CAPSULE DAILY 90 capsule 1 4 Active lisinopriL (PRINIVIL,ZESTRI L) 40 mg tablet TAKE 1 TABLET DAILY 90 tablet 1 5 Active IBU 600 mg tablet TAKE 1 TABLET DAILY 90 tablet 1 5 Active amoxicillin-clav ulanate (AUGMENTIN) 875-125 mg per tablet Take 1 tablet by mouth 2 (two) times a day for 10 days 20 tablet 5 08/09/19 25 methylPREDNISolo ne (MEDROL DOSEPACK) 4 mg Dosepack Take as directed on package. 21 tablet 5 08/26/19 25 Active Problems Problem Noted Date Diagnosed Date Stage 3a chronic kidney disease 03/05/2024 Morbid (severe) obesity due to excess calories 0 09/14/2021 Herpes zoster without complication 08/04/2020 Assessment & Plan (08/04/2020 9:33 AM CDT): - continue valacyclovir - discussed typical course of shingles - avoid contact of lesions with other people - f/u as needed Class 2 obesity due to exces s calories without serious comorbidity with body mass index (BMI) of 38.0 to 38.9 in adult 08/04/2020 Assessment & Plan (08/04/2020 9:33 AM CDT): - recommend a healthy diet and regular exercise as you are able for weight loss Obstructive sleep apnea (adult) (pediatric) 11/2018 Dependence on other enabling machines and device s 07/19/2018 Allergic rhinitis 02/15/2018 Dyslipidemia 02/15/2018 Hypertension 02/15/2018 Gastroesophageal reflux disease without esophagi tis 02/15/2018 Metabolic syndrome 02/15/2018 Ataxia 07/11/2016 Osteoarthritis of cervical spine 07/11/2016 Abnormal gait 07/04/2014 Resolved Problems Problem Noted Date Diagnosed Date Resolved Date Diabetes mellitus 09/14/2021 09/14/2021 Encounters Date Type Department Care Team Description 09/03/2024 Telephone [facility] Primary Care [address] [place] [phone] Connie Maria MD Test Results 07/29/2024 E-Visit [facility] Primary Care [address] [place] [phone] Connie Maria MD Your Medications from Last 3 Months Immunizations Immunization Administration Dates Next Due Influenza, Quadrivalent, Spl it, Intramuscular 03/07/2017,02/13/2016,03/02/2015 Influenza, Quadrivalent, Spl it, Preservative Free, Intramuscular 02/27/2023 Influenza, Trivalent, Preser vative Free, Intramuscular 02/23/2024 Influenza, Unspecified 02/23/2022,2020,02/13/2020,02/12,02/12/2018 Pfizer SARS-CoV-2 Monovalent Vaccination (12+ Yrs) PURPLE 05/25/2020,05/04/2020 Tdap 02/21/2021,02/20/2020 Surgical History Surgery Date Site/Laterality Comments SPINAL FUSION c 5 c 6, discectomy Medical History Medical History Date Comments Hypertension Sleep apnea MVP (mitral valve prolapse) Gallstones Arthritis Family History Medical History Relation Name Comments Diabetes Father Merle Aukamp Hearing loss Father Merle Aukamp Heart attack Father Merle Aukamp Heart disease Father Merle Aukamp Family history of cardiac disorder - (Added by TW Conv) Alzheimer's disease Maternal Grandfather Rainer Ibrahimter Alzheimer's disease Mother Tammiriana Joycecandelaria Cancer Mother Tammisusi Joycecandelaria Hearing loss Mother Tammi Goetz Alzheimer's disease Paternal Grandmother Romi Goetz Relation Name Status Comments Father Merle Aukamp Alive Maternal Grandfather Rainer Jones Mother Tammi Goetz Alive Paternal Grandmother Romi Goetz Social History Tobacco Use Types Packs/Day Years Used Date Smoking Tobacco: Never Cigarettes Smokeless Tobacco: Never Alcohol Use Standard Drinks/Week Comments Yes 0 (1 standard drink = 0.6 oz pur e alcohol) AUDIT-C Answer Date Recorded Q1: How often do you have a drink containing alc ohol? 2-4 times a month 08/07/2023 Q2: How many drinks containi ng alcohol do you have on a typical day when you are drinking? 1 or 2 08/07/2023 Q3: How often do you have si x or more drinks on one occasion? 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 Gender Identity Not on file Sexual Orientation Not on file Obstetrics History Last Filed Vital Signs Vital Sign Reading Time Taken Comments Blood Pressure 118/72 05/02/2024 3:28 PM FIELD OPERATIONS FARM MANAGER Pulse 82 05/02/2024 3:28 PM FIELD OPERATIONS FARM MANAGER Temperature 35.8 C (96.5 F) 03/26/2024 1:00 PM FIELD OPERATIONS FARM MANAGER Respiratory Rate 16 03/05/2024 7:20 AM CDT Oxygen Saturation 96% 05/02/2024 3:28 PM FIELD OPERATIONS FARM MANAGER Inhaled Oxygen Concentration - - Weight 113.6 kg (250 lb 6.4 oz) 05/02/2024 3:28 PM FIELD OPERATIONS FARM MANAGER Height 168.9 cm (5' 6.5 ) 05/02/2024 3:28 PM FIELD OPERATIONS FARM MANAGER Body Mass Index 39.81 05/02/2024 3:28 PM FIELD OPERATIONS FARM MANAGER Plan of Treatment Health Maintenance Due Date Last Done Comments Hepatitis C Screening 1960 Hepatitis B Screening 08/29[birth year]1979 Zoster Vaccine (1 of 2) 08/29/2011 Covid-19 Vaccine ( season) 2024 06/04/2021, 05/25/2020, 05/04/2020 Breast Cancer Screening-Mammogram 12/11/2024 12/12/2023, 06/02/2022, 04/24/2020, Additional history exists Cervical Cancer Screening 12/31/20242019, 01/01/2020, 06/04/2014 Depression Screening 03/05/2025 03/05/2024, 03/05/2024, 09/04/2023, Additional history exists Regular Well Visit/Exam 18-64 03/05/2025 03/05/2024, 03/03/2023, 03/01/2022, Additional history exists Colon Cancer Screening-Colonoscopy 03/16/2025 03/16/2020, 02/08/2016 DTaP/Tdap/Td Vaccine (3 - Td or Tdap) 02/21/2031 02/21/2021, 02/20/2020 Colon Cancer Screening-CT Colonography Discontinued 03/16/2020, 02/08/2016 Colon Cancer Screening-DNA Stool Discontinued 03/16/2020, 02/08/2016 Colon Cancer Screening-FIT Discontinued 03/16/2020, Colon Cancer Screening-Sigmoidoscopy Discontinued 03/16/2020, 02/08/2016 Influenza Vaccine Completed 02/23/2024, , 02/23/2022, Additional history exists Pneumococcal vaccine <65 Aged Out No longer eligible based on patient's age to complete this topic Procedures Procedure Name Priority Date/Time Associated Diagnosis Comments MAMMOGRAPHY Routine 12/12/2023 COLONOSCOPY Routine 03/16/2020 HM PAP SMEAR WITH HPV Routine 01/01/2020 from Last 3 Months or Most Recently Relevant to Health Maintenance Results * HM MAMMOGRAPHY (12/12/2023) Mammography Normal us Historical Provider HEALTH MAINTENANCE Final Result * Colonoscopy (03/16/2020) Anatomical Region Laterality Modality Other us Historical Provider ENDOSCOPY PROCEDURES Cyndi l Result * PAP SMEAR WITH HPV (01/01/2020) HM Pap smear Normal us Historical Provider HEALTH MAINTENANCE Final Result from Last 3 Months or Most Recently Relevant to Health Maintenance Additional Health Concerns Infection Onset Date Last Indicated COVID19 Comment:JULY AND NEG IN 03/16/2020 03/15/2020 [place] [employer] [place] [employer] [place] [employer] [facility] Care Teams Activities Counselor Relationship Specialty Start Date End Date Connie Maria MD PCP - General Internal Medicine 02/12/18
--- OUTSIDE RECORDS SUMMARY | 2024-09-03 10:18 | XMS_ITS | Referral Summary ---
Author Organization [facility] [place] [address] Address [address] [place] [address] Care Team Providers Care Resin Filterer Name Role Phone Connie Maria MD Primary Care Provider Encounters Date Type Department Care Team Description 09/03/2024 Telephone [facility] Primary Care [address] [place] [address] [place] [phone] Connie Maria MD Test Results 07/29/2024 E-Visit [facility] Primary Care [address] [place] [address] [place] [phone] Connie Maria MD Your Medications from Last 3 Months Allergies No known active allergies Medications aspirin [...] Date Resolved Date Diabetes mellitus 09/14/2021 09/14/2021 Immunizations Immunization Administration Dates Next Due Influenza, Quadrivalent, Spl it, Intramuscular 03/07/2017,02/13/2016,03/02/2015 Influenza, Quadrivalent, Spl it, Preservative Free, Intramuscular 02/27/2023 Influenza, Trivalent, Preser vative Free, Intramuscular 02/23/2024 Influenza, Unspecified 02/23/2022,2020,02/13/2020,02/12,02/12/2018 Pfizer SARS-CoV-2 Monovalent Vaccination (12+ Yrs) PURPLE 05/25/2020,05/04/2020 Tdap 02/21/2021,02/20/2020 Social History Tobacco Use Types Packs/Day Years [...] on file Legal Sex Female 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 Gender Identity Not on file Sexual Orientation Not on file Last Filed Vital Signs Vital Sign Reading Time Taken Comments Blood Pressure 118/72 05/02/2024 3:28 PM UTILITY WORKER DRIVER Pulse 82 05/02/2024 3:28 PM UTILITY WORKER DRIVER Temperature 35.8 C (96.5 F) 03/26/2024 1:00 PM UTILITY WORKER DRIVER Respiratory Rate 16 03/05/2024 7:20 AM CDT Oxygen Saturation 96% 05/02/2024 3:28 PM UTILITY WORKER DRIVER Inhaled Oxygen Concentration - - Weight 113.6 kg (250 lb 6.4 oz) 05/02/2024 3:28 PM UTILITY WORKER DRIVER Height 168.9 cm (5' 6.5 ) 05/02/2024 3:28 PM UTILITY WORKER DRIVER Body Mass Index 39.81 05/02/2024 3:28 PM UTILITY WORKER DRIVER Plan of Treatment Not on file Procedures Procedure Name Priority Date/Time Associated Diagnosis Comments MAMMOGRAPHY Routine 12/12/2023 COLONOSCOPY Routine 03/16/2020 HM PAP SMEAR WITH HPV Routine 01/01/2020 from Last 3 Months or Most Recently Relevant to Health Maintenance Results * MAMMOGRAPHY (12/12/2023) Mammography Normal us Historical Provider [...] Comment:JULY AND NEG IN 03/16/2020 03/15/2020 Insurance [employer] Care Teams Resin Filterer Relationship Specialty Start Date End Date Connie Maria MD PCP - General Internal Medicine 02/12/18
[2024-09-03 10:24] LABS: Vitamin D 25 Hydroxy 61.5 ng/mL
[2024-09-03 11:19] LABS: Anion Gap 9 mmol/L (4-12); Blood Urea Nitrogen 22 mg/dL (7-17); Calcium 9.7 mg/dL (8.4-10.2); Carbon Dioxide 27 mmol/L (22-30); Chloride 104 mmol/L (98-107); Estimated Glomerular Filt Rate 47; Glucose 105 mg/dL (65-110); Sodium 140 mmol/L (137-145)
== END 2024-09-03 09:16 | disposition home or self-care (01) ==
PROVIDERS: PCP Internal Medicine; Visit Provider Nurse Practitioner
DX: Z00.00 Encounter for general adult medical examination without abnormal findings (principal); E55.9 Vitamin D deficiency, unspecified; E78.5 Hyperlipidemia, unspecified
CPT/HCPCS: 36415; 80048; 80053; 80061; 82306; 83036; 85025

== ENCOUNTER 2024-10-06 15:57 | Emergency (ER) | payer BC, SELFPAY ==
--- OUTSIDE RECORDS SUMMARY | 2024-10-06 15:59 | XMS_ITS | Clinical Summary ---
Author Organization [facility] [address] Address [address] [place] [address] Care Team Providers Care Warehouse Operations Manager Name Role Phone Connie Maria MD Primary [...] mouth 2 (two) times a day for 21 days 42 tablet 5 10/01/19 25 polyethylene glycol (GoLYTELY) 236-22.74-6.74 -5.86 gram solutionIndicati ons:History of colon polyps Take 4,000 mL by mouth once for 1 dose 4000 mL 5 09/11/19 25 Active Problems Problem Noted Date Diagnosed Date History of colon polyps 09/10/2024 Stage 3a chronic kidney disease 03/05/2024 Morbid [...] Encounters Date Type Department Care Team Description 09/10/2024 Orders Only [facility] Gastroenterology at [address] [phone] Davy Shultz MD History of colon polyps (Primary Dx) 09/09/2024 4:00 PM CDT Office Visit [facility] Primary Care [address] [place] [phone] Connie Maria MD Routine general medical examination at a health care facility (Primary Dx); Primary hypertension; Stage 3a chronic kidney disease (HCC); Dyslipidemia; Obstructive sleep apnea (adult) (pediatric); Morbid (severe) obesity due to excess calories (HCC); BMI 39.0-39.9,adult; Chronic left-sided low back pain without sciatica; History of colon polyps; Colon cancer screening; Chronic maxillary sinusitis 09/04/2024 Telephone [facility] Primary Care [address] [place] [phone] Kika Retana NP Test Results; Call Back 09/03/2024 [place] [facility] [place] [address] [place] [phone] Scanning, Provider 09/03/2024 Telephone [facility] Primary Care [address] [place] [phone] Connie Maria MD Test Results 07/29/2024 E-Visit [facility] Primary Care [address] [place] [phone] Connie Maria MD Your Medications from Last 3 Months Immunizations Immunization Administration Dates Next Due Influenza, Quadrivalent, Spl it, Intramuscular 03/07/2017,02/13/2016,03/02/2015 Influenza, Quadrivalent, Spl it, Preservative Free, Intramuscular 02/27/2023 Influenza, Trivalent, Preser vative Free, Intramuscular 02/23/2024 Influenza, Unspecified 02/23/2022,2020,02/13/2020,02/12,02/12/2018 Pfizer SARS-CoV-2 Monovalent Vaccination (12+ Yrs) PURPLE 05/25/2020,05/04/2020 Tdap 02/21/2021,02/20/2020 Surgical History Surgery Date Site/Laterality Comments SPINAL FUSION c 5 c 6, discectomy CATARACT EXTRACTION 06/15/2024 - 07/12/2024 Bilateral Medical History Medical History Date Comments Hypertension Sleep apnea MVP (mitral valve prolapse) Gallstones Arthritis Family History Medical History Relation Name Comments Diabetes Father Yaritza Goetz Hearing loss Father Yaritza Goetz Heart attack Father Yaritza Goetz Heart disease Father Yaritza Goetz Family history of cardiac disorder - (Added by TW Conv) Alzheimer's disease Maternal Grandfather Rainer Jones Alzheimer's disease Mother Tammi Goetz Cancer Mother Tammi Goetz Hearing loss Mother Tammi Goetz Alzheimer's disease Paternal Grandmother Romi Goetz Relation Name Status Comments Father Yaritza Goetz Alive Maternal Grandfather Rainer Jones Mother Tammi [...] points, staff should administer the PHQ-9) 0 09/09/2024 PHQ-9 Answer Date Recorded PHQ-9 Total Score 1 03/05/2024 Comments No Sex and Gender Information Value Date Recorded Sex Assigned at Not on file Legal Sex Female 3:07 AM BOILERMAKER LOFTSMAN Gender Identity Not on file Sexual Orientation Not on file Obstetrics History Last Filed Vital Signs Vital Sign Reading Time Taken Comments Blood Pressure 110/66 09/09/2024 3:51 PM CDT Pulse 70 09/09/2024 3:51 PM CDT Temperature 36.1 C (96.9 F) 09/09/2024 3:51 PM CDT Respiratory Rate 16 03/05/2024 7:20 AM CDT Oxygen Saturation 97% 09/09/2024 3:51 PM CDT Inhaled Oxygen Concentration - - Weight 112.9 kg (249 lb) 09/09/2024 3:51 PM CDT Height 168.9 cm (5' 6.5) 09/09/2024 3:51 PM CDT Body Mass Index 39.59 09/09/2024 3:51 PM CDT Plan of Treatment Upcoming Encounters Date Type Department Care Team (Late st Contact Info) Description 03/24/2025 7:30 AM BOILERMAKER LOFTSMAN Hospital Encounter [facility] GI Lab [address] [place] [address] Davy Shultz MD [facility] [address] [place] [id number] 03/24/2025 7:30 AM BOILERMAKER LOFTSMAN - 03/24/2025 7:45 AM BOILERMAKER LOFTSMAN Surgery [facility] [address] [place] [address] Davy Shultz MD [address] [facility] [address] [place] [address] COLONOSCOPY Scheduled Procedures Name Priority Associated Diagnoses Date/Ti me COLONOSCOPY History of colon polyps 03/24/2025 7:30 AM BOILERMAKER LOFTSMAN Health Maintenance Due Date Last Done Comments Hepatitis C Screening 1960 Hepatitis B Screening 08/29[birth year]1979 Zoster Vaccine (1 of 2) 08/29/2011 Covid-19 Vaccine ( season) 2024 06/04/2021, 05/25/2020, 05/04/2020 Breast Cancer Screening-Mammogram 12/11/2024 12/12/2023, 06/02/2022, 04/24/2020, Additional history exists Cervical Cancer Screening 12/31/20242019, 01/01/2020, 06/04/2014 Colon Cancer Screening-Colonoscopy 03/16/2025 03/16/2020, 02/08/2016 Depression Screening 09/09/2025 09/09/2024, 03/05/2024, 03/05/2024, Additional history exists Regular Well Visit/Exam 18-64 09/09/2025 09/09/2024, 03/05/2024, 03/03/2023, Additional history exists DTaP/Tdap/Td Vaccine (3 - Td or Tdap) [...] Date/Time Associated Diagnosis Comments SCAN - LABS 09/03/2024 MAMMOGRAPHY Routine 12/12/2023 COLONOSCOPY Routine 03/16/2020 HM PAP SMEAR WITH HPV Routine 01/01/2020 from Last 3 Months or Most Recently Relevant to Health Maintenance Results * SCAN - LABS (09/03/2024) us Provider Scanning Final Result * MAMMOGRAPHY (12/12/2023) Mammography Normal Historical Provider HEALTH MAINTENANCE Final Result * Colonoscopy (03/16/2020) Anatomical Region Laterality Modality Other Historical Provider ENDOSCOPY PROCEDURES Cyndi l Result * HM PAP SMEAR WITH HPV (01/01/2020) HM Pap smear Normal Historical Provider HEALTH MAINTENANCE Final Result from Last 3 Months or Most Recently Relevant to Health Maintenance Additional Health Concerns Infection Onset Date Last Indicated COVID19 Comment:JULY AND NEG IN 03/16/2020 03/15/2020 [place] Care Teams Warehouse Operations Manager Relationship Specialty Start Date End Date Connie Maria MD PCP - General Internal Medicine 02/12/18
--- OUTSIDE RECORDS SUMMARY | 2024-10-06 15:59 | XMS_ITS | Encounter Summary ---
Author Organization [facility] Healthcare Address [address] [place] [address] Care Team Providers Care Mechanical Ordnance Assembler Name Role Phone Connie Maria MD Primary Care Provider Encounter Details Date Type Department Care Team (Late Contact Info) Description 03/21/2022 Orders Only [facility] [place] Information Management [address] [place] [phone] Scanning, Provider Social History Tobacco Use Types Packs/Day Years Used Date Smoking Tobacco: Never Smokeless Tobacco: Never Alcohol Use Standard Drinks/Week Comments Yes 0 (1 standard drink = 0.6 oz pur e alcohol) AUDIT-C Answer Date Recorded Q1: How often do you have a drink containing alcohol? 4 or more times a week 08/20/2020 Q2: How many drinks containi ng alcohol do you have on a typical day when you are drinking? 1 or 2 Q3: How often do you have si x or more drinks on one occasion? Never 08/20/2020 PHQ-2 Answer Date Recorded PHQ-2 Total Score (If total score is 3 or more points, staff should administer the PHQ-9) 0 03/01/2022 Comments No Sex and Gender Information Value Date Recorded Sex Assigned at Not on file Legal Sex Female 3:07 AM EDUCATIONAL ADVISER Gender Identity Not on file Sexual Orientation Not on file documented as of this encounter Plan of Treatment Upcoming Encounters Date Type Department Care Team (Late Contact Info) Description 03/24/2025 7:30 AM EDUCATIONAL ADVISER Hospital Encounter [facility] GI Lab [address] [place] [address] Davy Shultz MD [address] [facility] [address] [place] [address] 03/24/2025 7:30 AM EDUCATIONAL ADVISER - 03/24/2025 7:45 AM EDUCATIONAL ADVISER Surgery [facility] [address] [place] [address] Davy Shultz MD [address] [facility] [address] [place] [address] COLONOSCOPY Scheduled Procedures Name Priority Associated Diagnoses Date/Ti me COLONOSCOPY History of colon polyps 03/24/2025 7:30 AM EDUCATIONAL ADVISER documented as of this encounter Procedures Procedure Name Priority Date/Time Associated Diagnosis Comments SCAN - LABS 03/21/2022 documented in this encounter Results * SCAN - LABS (03/21/2022) us Provider Scanning Final Result documented in this encounter Visit Diagnoses Not on filedocumented in this encounter Additional Health Concerns Infection Onset Date Last Indicated Resolved Time COVID19 Comment:JULY AND NEG IN 03/16/2020 03/15/2020 documented as of this encounter Care Teams Mechanical Ordnance Assembler Relationship Specialty Start Date End Date Connie Maria MD PCP - General Internal Medicine 02/12/18 documented as of this encounter
--- OUTSIDE RECORDS SUMMARY | 2024-10-06 15:59 | XMS_ITS | Encounter Summary ---
Author Organization [facility] Address [address] [place] [address] Care Team Providers Care Network And Threat Support Specialist Name Role Phone Connie Maria MD Primary Care Provider Encounter Details Date Type Department Care Team (Late st Contact Info) Description 01/31/2008 Orders Only [facility] [place] [facility] Information Management [address] [place] [address] Scanning, Provider Social History Tobacco Use Types Packs/Day Years Used Date Smoking Tobacco: Never Assessed Comments Unknown Sex and Gender Information Value Date Recorded Sex Assigned at Not on file Legal Sex Female 3:07 AM JUKEBOX ROUTE DRIVER Gender Identity Not on file Sexual Orientation Not on file documented as of this encounter Plan of Treatment Upcoming Encounters Date Type Department Care Team (Late st Contact Info) Description 03/24/2025 7:30 AM JUKEBOX ROUTE DRIVER Hospital Encounter [facility] [address] [place] [address] Davy Shultz MD [address] [place] [address] 03/24/2025 7:30 AM JUKEBOX ROUTE DRIVER - 03/24/2025 7:45 AM JUKEBOX ROUTE DRIVER Surgery [facility] [address] [place] [address] Davy Shultz MD [address] [place] [address] COLONOSCOPY Scheduled Procedures Name Priority Associated Diagnoses Date/Ti me COLONOSCOPY History of colon polyps 03/24/2025 7:30 AM JUKEBOX ROUTE DRIVER documented as of this encounter Procedures Procedure [...] documented as of this encounter Care Teams Network And Threat Support Specialist Relationship Specialty Start Date End Date Connie Maria MD PCP - General Internal Medicine 02/12/18 documented as of this encounter
--- OUTSIDE RECORDS SUMMARY | 2024-10-06 15:59 | XMS_ITS | Referral Summary ---
Author Organization [facility] [place] [address] Address [address] [place] [address] Care Team Providers Care Polishing Machine Operator Name Role Phone Connie Maria MD Primary Care Provider Encounters Date Type Department Care Team Description 09/10/2024 Orders Only [facility] at [address] [place] [address] Davy Shultz MD History of colon polyps (Primary Dx) 09/09/2024 4:00 PM CDT Office Visit [facility] [address] [place] [address] [address] [place] [address] Connie Maria MD Routine general medical examination at a health care facility (Primary Dx); Primary hypertension; Stage 3a chronic kidney disease (HCC); Dyslipidemia; Obstructive sleep apnea (adult) (pediatric); Morbid (severe) obesity due to excess calories (HCC); BMI 39.0-39.9,adult; Chronic left-sided low back pain without sciatica; History of colon polyps; Colon cancer screening; Chronic maxillary sinusitis 09/04/2024 Telephone [facility] [address] [place] [address] [address] [place] [address] Kika Retana NP Test Results; Call Back 09/03/2024 Orders Only [facility] [place] Health Information Management [address] [place] [id number] Scanning, Provider 09/03/2024 Telephone [facility] [address] [place] [phone] Connie Maria MD Test Results 07/29/2024 E-Visit [facility] [address] [place] [phone] Connie Maria MD Your Medications from [...] on file Legal Sex Female 3:07 AM CLOTH DESIGNER Gender Identity Not on file Sexual Orientation [...] st Contact Info) Description 03/24/2025 7:30 AM CLOTH DESIGNER Hospital Encounter [facility] [address] [place] [address] Davy Shultz MD [address] [place] [address] [address] [place] [address] 03/24/2025 7:30 AM CLOTH DESIGNER - 03/24/2025 7:45 AM CLOTH DESIGNER Surgery [facility] [address] [place] [address] Davy Shultz MD [address] [place] [address] [address] [place] [address] COLONOSCOPY Scheduled Procedures Name Priority Associated Diagnoses Date/Ti me COLONOSCOPY History of colon polyps 03/24/2025 7:30 AM CLOTH DESIGNER Procedures Procedure Name Priority Date/Time Associated Diagnosis Comments SCAN - LABS 09/03/2024 MAMMOGRAPHY Routine 12/12/2023 COLONOSCOPY Routine 03/16/2020 HM PAP SMEAR WITH HPV Routine 01/01/2020 from Last 3 Months or Most Recently Relevant to Health Maintenance Results * SCAN - LABS (09/03/2024) us Provider Scanning Final Result * HM MAMMOGRAPHY (12/12/2023) Mammography Normal us Historical Provider HEALTH MAINTENANCE Final Result * Colonoscopy (03/16/2020) Anatomical Region Laterality Modality Other us Historical Provider ENDOSCOPY PROCEDURES Cyndi l Result * PAP SMEAR WITH HPV (01/01/2020) Pap smear Normal us Historical Provider HEALTH MAINTENANCE Final Result from Last 3 Months or Most Recently Relevant to Health Maintenance Additional Health Concerns Infection Onset Date Last Indicated COVID19 Comment:JULY AND NEG IN 03/16/2020 03/15/2020 [place] [employer] [place] [facility] [place] [facility] Care Teams Polishing Machine Operator Relationship Specialty Start Date End Date Connie Maria MD PCP - General Internal Medicine 02/12/18
--- OUTSIDE RECORDS SUMMARY | 2024-10-06 15:59 | XMS_ITS | Continuity of Care Document ---
Author Organization [employer] Address [address] [place] [address] Phone Care Team Providers Care Clinical Reimbursement Specialist Name Role Phone Kari Augustine DO Unavailable [...] Diagnoses Date Provider Providers Copied on Encounter [facility], [address], [place], [place], [address] , tel: [phone] [facility] Internal Medicine No Information 8 Davide Pierce. [address], [address], [place]. tel:[phone] [facility], [address], [place], [place], [address] , tel: [phone] [facility] Internal Medicine No Information 8 Alan Tatum. [address] [place] [address], [id number], [place]. tel:[phone] [facility], [address], [place], [place], [address] , [place] tel: [phone] [facility] Internal Medicine No Information 8 Lupe Barfield. [address] [place] [address], [address], [place]. tel:[phone] [facility], [address], [place], [place], [address] , tel: [phone] [facility] Internal Medicine Body mass index (BMI) 38.0-38.9, adultEssential hypertensionGait disorderMetabolic syndrome 8 Lupe Gaylin. [address] [place] [address], [address], [place]. tel:[phone] Referring Provider: Kari Farrell, [address] [address], [place], [address]. tel:[phone] [facility], [address], [place], [place], [address] , tel: [phone] [facility] Internal Medicine No Information 8 Davide Kari. [address] [facility] , [address] [facility], [place], [facility], . tel:[phone] [facility], [address], [place], [place], [address] , tel: [phone] [facility] Internal Medicine No Information 8 Wolfgang Aguirrera. [address] [place] [address], [facility], . tel:[phone] [facility], [address], [place], [place], [address] , tel: [phone] [facility] Internal Medicine No Information 8 Davide Molinain. [address] [facility], [address] [place] [address], [facility], . tel:[phone] [facility], [address], [place], [place], [address] , tel: [phone] [facility] Internal Medicine Body mass index (BMI) 37.0-37.9, adultEssential hypertensionRight arm pain 7 Davide Kari. [address] [facility], [address] [place] [address], [facility], [place]. tel:[phone] Referring Provider: Kari Farrell, [address] [facility] [address] [place] [address], [facility]. tel:[phone] [facility], [address], [place], [place], [address] , tel: [phone] [facility] Internal Medicine No Information 7 Davide Kari. [address] [facility] , [address] [place] [address], [facility], [place]. tel:[phone] [facility], [address], [place], [place], [address] , tel: [phone] [facility] Internal Medicine No Information 7 Davide Molinain. [address] [facility] , [address], [place], [facility], . tel:[phone] [facility], [address], [place], [place], [address] , tel:[phone] [facility] Internal Medicine No Information 7 Wolfgang Benjamin. [address] [place] [address], [address], . tel:[phone] [facility], [address], [place], [place], [address] , tel: [phone] [facility] Internal Medicine Annual physical exam 7 Wolfgang Benjamin. [address] [place] [address], [facility], [place]. tel:[phone] [facility], [address], [place], [place], [address] , tel:[phone] [facility] Internal Medicine No Information Davide Pierce. [address] [place] [address], [address], [facility], . tel:[phone] [facility], [address], [place], [place], [address] , [place] tel: [phone] [facility] Internal Medicine Body mass index (BMI) 37.0-37.9, adultAnnual physical exam Wolfgang Benjamin. [address] [place] [address], [facility], . tel:[phone] Referring Provider: Kari Farrell, [address] [facility] [address], [place], [facility]. tel:[phone] [facility], [address], [place], [place], [address] , [place] tel: [phone] [facility] Internal Medicine Body mass index (BMI) 36.0-36.9, adultEssential hypertensionGait disorder 7 Davide Pierce. [address] [facility], [address] [place] [address], [facility], [place]. tel:[phone] Referring Provider: Kari Farrell [address] [facility] [address] [facility], [place], [address]. tel:[phone] [facility], [address], [place], [place], [address] , tel: [phone] [facility] Internal Medicine Body mass index (BMI) 37.0-37.9, adultGait disorderEssential hypertension Wolfgang Benjamin. [address] [place] [address], [address], [place]. tel:[phone] Referring Provider: Kari Farrell, [address] [facility] [address] [facility], [place], [facility]. tel:[phone] [facility], [address], [place], [place], [address] , tel: [phone] [facility] Internal Medicine Gait disorder Davide Pierce. [address] [place] [address], [address], [facility], [place]. tel:[phone] Referring Provider: Kari Farrell, [address] [facility] [address] [place] [address], [facility]. tel:[phone] [facility], [address], [place], [place], [address] , tel: [phone] [facility] Mass of left adrenal gland Davide Pierce. [address] [place] [address], [address], [address], [place]. tel:[phone] [facility], [address], [place], [place], [address] , tel: [phone] [facility] Viral upper respiratory tract infection Davide Pierce. [address] [place] [address], [address], [facility], . tel:[phone] Referring Provider: Kari Farrell, [address] [facility] [address] [place] [address], [facility]. tel:[phone] [facility], [address], [place], [place], [address] , tel: [phone] [facility] Back pain, unspecified back location, unspecified back pain laterality, unspecified chronicity 6 Augustine Kari. [address] [facility], [address], [facility], [place]. tel:[phone] [facility], [address], [place], [place], [address] , tel: [phone] [facility] Gait disorder 6 Augustine Kari. [address] [facility], [address] [facility], [place], [facility], [place]. tel:[phone] [facility], [address], [place], [place], [address] , tel: [phone] [facility] Gait disorder 6 Augustine Kari. [address] [facility], [address], [facility], . tel:[phone] [facility], [address], [place], [place], [address] , tel: [phone] [facility] Gait disorderAnosmia 6 Augustine Kari. [address] [facility], [address], [facility], . tel:[phone] Referring Provider: Kari Farrell, [address] [place] [address] [place] [address], [facility]. tel:[phone] [facility], [address], [place], [place], [address] , tel: [phone] [facility] Gait disorder 6 Augustine Kari. [address] [facility], [address] [place] [address], [facility], [place]. tel:[phone] [facility], [address], [place], [place], [address] , tel: [phone] [facility] Physical exam, annual 6 Davide Kari. [address] [facility], [address], [facility], [place]. tel:[phone] Referring Provider: Kari Farrell [address] [facility] [address], [place], [address]. tel:[phone] [facility], [address], [place], [place], [address] , tel: [phone] [facility] Obesity (BMI 30.0-34.9) 5 Davide Pierce. [address] [facility], [address], [place], [address], [place]. tel:[phone] Referring Provider: Kari Farrell, [address] [facility] [address], [place], [address]. tel:[phone] [facility], [address], [place], [place], [address] , tel: [phone] [facility] Metabolic syndromeMorbid (severe) obesity due to excess caloriesDietary counseling and surveillance 5 Lyn Pickett. [facility] [address], [place], [place], [address]. tel:[phone] Referring Provider: Kari Farrell, [address] [facility] [address] [facility], [place], [facility]. tel:[phone] [facility], [address], [place], [place], [address] , tel: [phone] [facility] Obesity (BMI 35.0-39.9 without comorbidity)Bilate ral foot painPlantar fascial fibromatosis 5 Davide Pierce. [address] [facility], [address] [place] [address], [address], [place]. tel:[phone] Referring Provider: Kari Farrell, [address] [facility] [address] [facility], [place], [address]. tel:[phone] [facility], [address], [place], [place], [address] , tel: [phone] [facility] UTI (urinary tract infection) 5 Davide Pierce. [address] [facility], [address], [address], [place]. tel:[phone] [facility], [address], [place], [place], [address] , tel: [phone] [facility] Hyperlipidemia Aug-3 1-201 5 Davide Kari. [address] [facility], [address] [address], [place], [facility], [place]. tel:[phone] [facility], [address], [place], [place], [address] , tel: [phone] [facility] HypertensionDizzin ess Syd-3 0-201 5 Augustine Kari. [address] [facility], [address] [address], [place], [facility], [place]. tel:[phone] Referring Provider: Kari Farrell, [address], [facility]. tel:[phone] [facility], [address], [place], [place], [address] , tel: [phone] [facility] DizzinessGait disorder Apr-2 8-201 5 Augustine Kari. [address] [facility], [address] [address], [place], [facility], [place]. tel:[phone] [facility], [address], [place], [place], [address] , tel: [phone] [facility] Gait disorderDizziness Apr-0 7-201 5 Davide Kari. [address] [facility], [address], [facility], [place]. tel:[phone] [facility], [address], [place], [place], [address] , [place] tel: [phone] [facility] Cough Ismael-0 6201 5 Davide Kari. [address] [facility], [address], [facility], [place]. tel:[phone] [facility], [address], [place], [place], [address] , tel: [phone] [facility] Cough Dec-2 6-201 4 Augustine Kari. [address] [facility], [address], [facility], [place]. tel:[phone] Referring Provider: Kari Farrell, [address] [facility], [place], [facility]. tel:[phone] [facility], [address], [place], [place], [address] , tel: [phone] [facility] Cough Dec-2 2-201 4 Davide Kari. [address] [facility], [address] [place] [address], [facility], [place]. tel:[phone] Referring Provider: Kari Farrell, [address] [facility], [place], [facility]. tel:[phone] [facility], [address], [place], [place], [address] , tel: [phone] [facility] CoughFever Dec- 2-201 4 Davide Kari. [address] [facility], [address] [place] [address], [facility], . tel:[phone] Referring Provider: Kari Farrell, [address] [facility] [address] [facility], [place], [facility]. tel:[phone] [facility], [address], [place], [place], [address] , tel: [phone] [facility] Dizziness Nov-1 0-201 4 Davide Kari. [address] [facility], [address] [place] [address], [facility], [place]. tel:[phone] Referring Provider: Kari Farrell, [address] [facility] [address] [place] [address], [facility]. tel:[phone] [facility], [address], [place], [place], [address] , [place] tel: [phone] [facility] Dizziness Oct-0 1-201 4 Davide Kari. [address] [facility], [address] [place] [address], [facility], [place]. tel:[phone] [facility], [address], [place], [place], [address] , tel: [phone] [facility] DizzinessGait disorder Sep-2 3-201 4 Davide Kari. [address] [facility], [address], [place], [address], [place]. tel:[phone] [facility], [address], [place], [place], [address] , [place] tel: [phone] [facility] Dizziness 4 Davide Pierce. [address] [facility], [address] [facility], [place], [facility], [place]. tel:[phone] Referring Provider: Kari Farrell, [address] [facility] [address] [facility], [place], [facility]. tel:[phone] [facility], [address], [place], [place], [address] , [place] tel: [phone] [facility] Annual physical exam 4 Davide Pierce. [address] [facility], [address] [place] [address], [facility], [place]. tel:[phone] Referring Provider: Kari Farrell, [address] [facility] [address] [facility], [place], [facility]. tel:[phone] [facility], [address], [place], [place], [address] , [place] tel: [phone] [facility] Hypertension 4 Davide Pierce. [address] [facility], [address] [place] [address], [facility], [place]. tel:[phone] [facility], [address], [place], [place], [address] , [place] tel: [phone] [facility] Left arm pain 4 Davide Kari. [address] [facility], [address] [facility], [place], [facility], [place]. tel:[phone] Referring Provider: Kari Farrell, [address] [facility] [address] [facility], [place], [facility]. tel:[phone] [facility], [address], [place], [place], [address] , tel: [phone] [facility] Radicular painHypertensionPe butch edema 4 Davide Pierce. [address] [facility], [address] [place] [address], [facility], . tel:[phone] Referring Provider: Kari Farrell, [address], [facility]. tel:[phone] [facility] [address], [place], [place], [address] , tel: [phone] [facility] C. difficile colitis 4 Davide Pierce. [address] [facility], [address], [facility], . tel:[phone] Referring Provider: Kari Farrell, [address] [facility] [address] [place] [address], [facility]. tel:[phone] [facility] [address], [place], [place], [address] , tel: [phone] [facility] Screening for malignant neoplasm of the rectum 3 Davide Pierce. [address] [facility], [address], [facility], . tel:[phone] Referring Provider: Kari Farrell, [address], [facility]. tel:[phone] [facility] [address], [place], [place], [address] , tel: [phone] [facility] Acute diarrheaMetabolic syndrome 3 Davide Pierce. [address] [place] [address], [address], [facility], . tel:[phone] Referring Provider: Mayelin Burton, [address] [facility] [address], [place], [address] . tel:[phone] [facility] [address], [place], [place], [address] , tel: [phone] [facility] Annual physical examDysmetabolic syndrome xHyperlipidemiaHig h blood pressureSinusitisK nee painMorbid obesityRoutine Medical Exam [address] [facility], [address], [place], [place], [address]. tel:[phone] Referring Provider: Mayelin Burton, [address] [facility] [address], [place], [address] . tel:[phone] [facility], [address], [place], [place], [address] , tel: [phone] [facility] No Information 3 Wolf Rice. [address] [facility] [place], [address], [place], [place], [address]. tel:[phone] [facility], [address], [place], [place], [address] , tel: [phone] [facility] High blood pressureHyperlipid emiaObesity, unspecifiedDysmeta bolic syndrome xSinusitis 3 Micheal Dick. [address] [facility] [address], [place], [place], [address]. tel:[phone] Referring Provider: Mayelin Burton, [address] [facility] [address], [place], [address] . tel:[phone] [facility] [address], [place], [place], [address] , tel: [phone] [facility] Dysmetabolic syndrome xAcute bronchitisHyperlip idemiaHigh blood pressureObesity, unspecified 2 Micheal Dick. [address] [facility] [address], [place], [place], [address]. tel:[phone] Referring Provider: Mayelin Burton, [address] [facility] [address], [place], [address] . tel:[phone] [facility] [address], [place], [place], [address] , tel: [phone] [facility] Dysmetabolic syndrome xOther and unspecified hyperlipidemiaUnsp ecified essential hypertensionCervic algia [address] [facility], [address], [place], [place], [address]. tel:[phone] Referring Provider: Mayelin Burton, [address] [facility] [address], [place], [address] . tel:[phone] [facility], [address], [place], [place], [address] , tel: [phone] [facility] CHRONIC SINUSITIS NOS 0-201 [address] [facility], [address], [place], [place], [address]. tel:[phone] Referring Provider: Mayelin Burton, [address] [facility] [address], [place], [address] . tel:[phone] [facility], [address], [place], [place], [address] , tel: [phone] [facility] Unspecified sinusitis (chronic)Backache, unspecifiedObesity , unspecified [address] [facility], [address], [place], [place], [address]. tel:[phone] Referring Provider: Mayelin Burton, [address] [facility] [address], [place], [address] . tel:[phone] [facility], [address], [place], [place], [address] , [place] tel: [phone] [facility] HYPERLIPIDEMIA NEC/NOSHYPERTENSIO N NOSDYSMETABOLIC SYNDROME XOBESITY NOS Aug-2 5[address] [facility], [address], [place], [place], [address]. tel:[phone] [facility], [address], [place], [place], [address] , [place] tel: [phone] [facility] BACKACHE NOSESOPHAGEAL REFLUX Feb- 8 [address] [facility], [address], [place], [place], [address]. tel:[phone] [facility], [address], [place], [place], [address] , [place] tel: [phone] [facility] SIALOADENITIS Syd-0 5-200 [address] [facility], [address], [place], [place], [address]. tel:[phone] [facility], [address], [place], [place], [address] , [place] tel: [phone] [facility] CHRONIC SINUSITIS NOS Apr-0 9-200 [address] [facility], [address], [place], [place], [address]. tel:[phone] [facility], [address], [place], [place], [address] , [place] tel: [phone] [facility] MITRAL VALVE DISORDER May-2 5-200 [address] [facility], [address], [place], [place], [address]. tel:[phone] [facility], [address], [place], [place], [address] , [place] tel: [phone] [facility] CERVICALGIA Syd-3 0-200 [address] [facility], [address], [place], [place], [address]. tel:[phone] [facility], [address], [place], [place], [address] , [place] tel: [phone] [facility] No Information Oct-0 4-200 [address] [facility], [address], [place], [place], [address]. tel:[phone] [facility], [address], [place], [place], [address] , tel: [phone] [facility] FEVER Aug-2 7-200 [address] [facility], [address], [place], [place], [address]. tel:[phone] [facility], [address], [place], [place], [address] , [place] tel: [phone] [facility] NEED PRPHYL VC VRL HEPAT 4-200 0 Micheal Dick. [address], [address], [place], [place], [address]. tel:[phone] Family History Family Member Type Diagnosis Age At Onset Mother Problem (finding) COPD/HTN Problem (finding) Family history of hyper tension Father Problem (finding) Myocardial infarction Immunizations Vaccine Date Status Comments Fluzone Quad , spli t virus, 0.5mL dosage administered Note: work ; Source: Other Provider Tdap refused Source: New Imm unization Record Td (adult) preservative free refused Source: New Immunization Record Influenza, injectable, quadrivalent, 0.5mL dosage administered Source: Other Provider influenza, injectable, quadrivalent, (3 years or older) administered Source: [place] [address] - Influenza administered Source: So urce Unspecified Payers Payer name Insurance type Covered alliance party ID Authoriza tion(s) [place] [id number] [place] [id number] [place] [id number] Social History Type Description Quantity Date Captured [...]
--- OUTSIDE RECORDS SUMMARY | 2024-10-06 15:59 | XMS_ITS | Encounter Summary ---
Author Organization 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 DIRECTOR Gender Identity Not on file Sexual Orientation Not on file documented as of this encounter Plan of Treatment Upcoming Encounters Date Type Department Care Team (Late st Contact Info) Description 03/24/2025 7:30 AM CHILDREN'S CHOIR DIRECTOR Hospital Encounter [facility] [address] [place] [address] Davy Shultz MD [facility] [address] NIELSEN [address] [place] [address] 03/24/2025 7:30 AM CHILDREN'S CHOIR DIRECTOR - 03/24/2025 7:45 AM CHILDREN'S CHOIR DIRECTOR Surgery [facility] [address] [place] [address] Davy Shultz MD [address] [facility] [address] [place] [address] COLONOSCOPY Scheduled Procedures Name Priority Associated Diagnoses Date/Ti me COLONOSCOPY History of colon polyps 03/24/2025 7:30 AM CHILDREN'S CHOIR DIRECTOR documented as of this encounter Procedures Procedure [...] AM CDT Ordered by an unspecified provider. [facility] Provider Final Res ult * SCAN - LABS (02/15/2018 12:00 AM CDT) Narrative 02/15/2018 12:00 AM CDT Ordered by an unspecified provider. [facility] Provider Final Res ult * CARDIOLOGY REPORT (02/15/2018 12:00 AM CDT) Anatomical Region Laterality Modality Other Narrative 02/15/2018 12:00 AM CDT Ordered by an unspecified provider. [facility] Provider CV CARDIAC SERVICES RENE RODARTE Final Result documented in this encounter Visit Diagnoses Not on filedocumented in this encounter Additional Health Concerns Infection Onset Date Last Indicated Resolved Time COVID: Suspected 09/03/2019 09/03/2019 09/17/2019 3:06 AM CDT COVID19 Comment:JULY AND NEG IN 03/16/2020 03/15/2020 documented as of this encounter Care Teams Etl Software Engineer Relationship Specialty Start Date End Date Connie Maria MD PCP - General Internal Medicine 02/12/18 documented as of this encounter
--- OUTSIDE RECORDS SUMMARY | 2024-10-06 16:01 | XMS_ITS | Continuity of Care Document ---
Author Organization [facility] Address [address] [place] [address] Phone Care Team Providers Care Manager Maritime Name Role Phone Kari Augustine DO Unavailable [...] Diagnoses Date Provider Providers Copied on Encounter [facility], [address], [place], [place], [address] , tel: [phone] [facility] No Information 8 Davide Pierce. [address], [address], [place]. tel:[phone] [facility], [address], [place], [place], [address] , tel: [phone] [facility] No Information 8 Alan Tatum. [address] [place] [address], [id number], [place]. tel:[phone] [facility], [address], [place], [place], [address] , [place] tel: [phone] [facility] No Information 8 Lupe Barfield. [address] [place] [address], [address], [place]. tel:[phone] [facility], [address], [place], [place], [address] , tel: [phone] [facility] Body mass index (BMI) 38.0-38.9, adultEssential hypertensionGait disorderMetabolic syndrome 8 Lupe Gaylin. [address] [place] [address], [address], [place]. tel:[phone] Referring Provider: Kari Farrell, [address] [address], [place], [address]. tel:[phone] [facility], [address], [place], [place], [address] , tel: [phone] [facility] No Information 8 Davide Kari. 509 [facility] , [address] [facility], [place], [place], [facility], . tel:[phone] [facility], [address], [place], [place], [address] , tel: [phone] [facility] No Information 8 Wolfgang Aguirrera. [address] [place] [address], [facility], . tel:[phone] [facility], [address], [place], [place], [address] , tel: [phone] [facility] No Information 8 Davide Molinain. 509 [facility], [address] [place] [address], [facility], . tel:[phone] [facility], [address], [place], [place], [address] , tel: [phone] [facility] Body mass index (BMI) 37.0-37.9, adultEssential hypertensionRight arm pain 7 Davide Kari. 509 [facility], [address] [place] [address], [facility], [place]. tel:[phone] Referring Provider: Kari Farrell, [address] [facility] [address] [place] [address], [facility]. tel:[phone] [facility], [address], [place], [place], [address] , tel: [phone] [facility] No Information 7 Davide Kari. 509 [facility] , [address] [place] [address], [facility], [place]. tel:[phone] [facility], [address], [place], [place], [address] , tel: [phone] [facility] No Information 7 Davide Molinain. [address] [facility] , [address], [place], [facility], . tel:[phone] [facility], [address], [place], [place], [address] , tel:[phone] [facility] No Information 7 Wolfgang Benjamin. [address] [place] [address], [address], . tel:[phone] [facility], [address], [place], [place], [address] , tel: [phone] [facility] Annual physical exam 7 Wolfgang Benjamin. [address] [place] [address], [facility], [place]. tel:[phone] [facility], [address], [place], [place], [address] , tel:[phone] [facility] No Information Davide Pierce. [address] [place] [address], [address], [facility], . tel:[phone] [facility], [address], [place], [place], [address] , [place] tel: [phone] [facility] Body mass index (BMI) 37.0-37.9, adultAnnual physical exam Wolfgang Benjamin. [address] [place] [address], [facility], . tel:[phone] Referring Provider: Kari Farrell, [address] [facility] [address], [place], [facility]. tel:[phone] [facility], [address], [place], [place], [address] , [place] tel: [phone] [facility] Body mass index (BMI) 36.0-36.9, adultEssential hypertensionGait disorder 7 Davide Pierce. 509 [facility], [address] [place] [address], [facility], [place]. tel:[phone] Referring Provider: Kari Farrell [address] [facility] [address] [facility], [place], [address]. tel:[phone] [facility], [address], [place], [place], [address] , tel: [phone] [facility] Body mass index (BMI) 37.0-37.9, adultGait disorderEssential hypertension Wolfgang Benjamin. [address] [place] [address], [address], [place]. tel:[phone] Referring Provider: Kari Farrell, [address] [facility] [address] [facility], [place], [facility]. tel:[phone] [facility], [address], [place], [place], [address] , tel: [phone] [facility] Gait disorder Davide Pierce. [address] [place] [address], [address], [facility], [place]. tel:[phone] Referring Provider: Kari Farrell, [address] [facility] [address] [place] [address], [facility]. tel:[phone] [facility], [address], [place], [place], [address] , tel: [phone] [facility] Mass of left adrenal gland Davide Pierce. [address] [place] [address], [address], [address], [place]. tel:[phone] [facility], [address], [place], [place], [address] , tel: [phone] [facility] Viral upper respiratory tract infection Davide Pierce. [address] [place] [address], [address], [facility], . tel:[phone] Referring Provider: Kari Farrell, [address] [facility] [address] [place] [address], [facility]. tel:[phone] [facility], [address], [place], [place], [address] , tel: [phone] [facility] Back pain, unspecified back location, unspecified back pain laterality, unspecified chronicity 6 Augustine Kari. 509 [facility], [address], [facility], [place]. tel:[phone] [facility], [address], [place], [place], [address] , tel: [phone] [facility] Gait disorder 6 Augustine Kari. [address] [facility], [address] [facility], [place], [facility], [place]. tel:[phone] [facility], [address], [place], [place], [address] , tel: [phone] [facility] Gait disorder 6 Augustine Kari. 509 [facility], [address], [facility], . tel:[phone] [employer], [address], [place], [place], [address] , tel: [phone] [facility] Gait disorderAnosmia 6 Augustine Kari. 509 [facility], [address], [facility], . tel:[phone] Referring Provider: Kari Farrell, [address] [place] [address] [place] [address], [facility]. tel:[phone] [employer], [address], [place], [place], [address] , tel: [phone] [facility] Gait disorder 6 Augustine Kari. 509 [facility], [address] [place] [address], [facility], [place]. tel:[phone] [facility], [address], [place], [place], [address] , tel: [phone] [facility] Physical exam, annual 6 Davide Kari. 509 [facility], [address], [facility], [place]. tel:[phone] Referring Provider: Kari Farrell [address] [facility] [address], [place], [address]. tel:[phone] [facility], [address], [place], [place], [address] , tel: [phone] [facility] Obesity (BMI 30.0-34.9) 5 Davide Pierce. 509 [facility], [address], [place], [address], [place]. tel:[phone] Referring Provider: Kari Farrell, [address] [facility] [address], [place], [address]. tel:[phone] [facility], [address], [place], [place], [address] , tel: [phone] [facility] Metabolic syndromeMorbid (severe) obesity due to excess caloriesDietary counseling and surveillance 5 Lyn Pickett. [facility] [address], [place], [place], [address]. tel:[phone] Referring Provider: Kari Farrell, [address] [facility] [address] [facility], [place], [facility]. tel:[phone] [facility], [address], [place], [place], [address] , tel: [phone] [facility] Obesity (BMI 35.0-39.9 without comorbidity)Bilate ral foot painPlantar fascial fibromatosis 5 Davide Pierce. 509 [facility], [address] [place] [address], [address], [place]. tel:[phone] Referring Provider: Kari Farrell, [address] [facility] [address] [facility], [place], [address]. tel:[phone] [facility], [address], [place], [place], [address] , tel: [phone] [facility] UTI (urinary tract infection) 5 Davide Pierce. 509 [facility], [address], [address], [place]. tel:[phone] [facility], [address], [place], [place], [address] , tel: [phone] [facility] Hyperlipidemia Aug-3 1-201 5 Davide Kari. 509 [facility], [address] [address], [place], [facility], [place]. tel:[phone] [facility], [address], [place], [place], [address] , tel: [phone] [facility] HypertensionDizzin ess Syd-3 0-201 5 Augustine Kari. [address] [facility], [address] [address], [place], [facility], [place]. tel:[phone] Referring Provider: Kari Farrell, [address], [facility]. tel:[phone] [facility], [address], [place], [place], [address] , tel: [phone] [facility] DizzinessGait disorder Apr-2 8-201 5 Augustine Kari. [address] [facility], [address] [address], [place], [facility], [place]. tel:[phone] [facility], [address], [place], [place], [address] , tel: [phone] [facility] Gait disorderDizziness Apr-0 7-201 5 Davide Kari. 509 [facility], [address], [facility], [place]. tel:[phone] [facility], [address], [place], [place], [address] , [place] tel: [phone] [facility] Cough Ismael-0 6201 5 Davide Kari. [address] [facility], [address], [facility], [place]. tel:[phone] [facility], [address], [place], [place], [address] , tel: [phone] [facility] Cough Dec-2 6-201 4 Augustine Kari. 509 [facility], [address], [facility], [place]. tel:[phone] Referring Provider: Kari Farrell, [address] [facility] [address] [facility], [place], [facility]. tel:[phone] [facility], [address], [place], [place], [address] , tel: [phone] [facility] Cough Dec-2 2-201 4 Davide Kari. 509 [facility], [address] [place] [address], [facility], [place]. tel:[phone] Referring Provider: Kari Farrell, [address] [facility] [address] [facility], [place], [facility]. tel:[phone] [facility], [address], [place], [place], [address] , tel: [phone] [facility] CoughFever Dec- 2-201 4 Davide Kari. 509 [facility], [address] [place] [address], [facility], . tel:[phone] Referring Provider: Kari Farrell, [address] [facility] [address] [facility], [place], [facility]. tel:[phone] [facility], [address], [place], [place], [address] , tel: [phone] [facility] Dizziness Nov-1 0-201 4 Davide Kari. 509 [facility], [address] [place] [address], [facility], [place]. tel:[phone] Referring Provider: Kari Farrell, [address] [facility] [address] [place] [address], [facility]. tel:[phone] [facility], [address], [place], [place], [address] , [place] tel: [phone] [facility] Dizziness Oct-0 1-201 4 Davide Kari. [address] [facility], [address] [place] [address], [facility], [place]. tel:[phone] [facility], [address], [place], [place], [address] , tel: [phone] [facility] DizzinessGait disorder Sep-2 3-201 4 Davide Kari. [address] [facility], [address], [place], [address], [place]. tel:[phone] [facility], [address], [place], [place], [address] , [place] tel: [phone] [facility] Dizziness 4 Davide Pierce. [address] [facility], [address] [facility], [place], [facility], [place]. tel:[phone] Referring Provider: Kari Farrell, [address] [facility] [address] [facility], [place], [facility]. tel:[phone] [facility], [address], [place], [place], [address] , [place] tel: [phone] [facility] Annual physical exam 4 Davide Pierce. [address] [facility], [address] [place] [address], [facility], [place]. tel:[phone] Referring Provider: Kari Farrell, [address] [facility] [address] [facility], [place], [facility]. tel:[phone] [facility], [address], [place], [place], [address] , [place] tel: [phone] [facility] Hypertension 4 Davide Pierce. 509 [facility], [address] [place] [address], [facility], [place]. tel:[phone] [facility], [address], [place], [place], [address] , [place] tel: [phone] [facility] Left arm pain 4 Davide Kari. [address] [facility], [address] [facility], [place], [facility], [place]. tel:[phone] Referring Provider: Kari Farrell, [address] [facility] [address] [facility], [place], [facility]. tel:[phone] [facility], [address], [place], [place], [address] , tel: [phone] [facility] Radicular painHypertensionPe butch edema 4 Davide Pierce. [address] [facility], [address] [place] [address], [facility], . tel:[phone] Referring Provider: Kari Farrell, [address], [facility]. tel:[phone] [facility] [address], [place], [place], [address] , tel: [phone] [facility] C. difficile colitis 4 Davide Pierce. 509 [facility], [address], [facility], . tel:[phone] Referring Provider: Kari Farrell, [address] [facility] [address] [place] [address], [facility]. tel:[phone] [facility] [address], [place], [place], [address] , tel: [phone] [facility] Screening for malignant neoplasm of the rectum 3 Davide Pierce. 509 [facility], [address], [facility], . tel:[phone] Referring Provider: Kari Farrell, [address], [facility]. tel:[phone] [facility] [address], [place], [place], [address] , tel: [phone] [facility] Acute diarrheaMetabolic syndrome 3 Davide Pierce. [address] [place] [address], [address], [facility], . tel:[phone] Referring Provider: Mayelin Burton, [address] [facility] [address], [place], [address] . tel:[phone] [facility] [address], [place], [place], [address] , tel: [phone] [facility] Annual physical examDysmetabolic syndrome xHyperlipidemiaHig h blood pressureSinusitisK nee painMorbid obesityRoutine Medical Exam 3 Micheal Dick. [address] [facility], [address], [place], [place], [address]. tel:[phone] Referring Provider: Mayelin Burton, [address] [facility] [address], [place], [address] . tel:[phone] [facility], [address], [place], [place], [address] , tel: [phone] [facility] No Information 3 Wolf Rice. [address] [facility], [address], [place], [place], [address]. tel:[phone] [facility], [address], [place], [place], [address] , tel: [phone] [facility] High blood pressureHyperlipid emiaObesity, unspecifiedDysmeta bolic syndrome xSinusitis 3 Micheal Dick. [address] [facility] [address], [place], [place], [address]. tel:[phone] Referring Provider: Mayelin Burton, [address] [facility] [address], [place], [address] . tel:[phone] [facility] [address], [place], [place], [address] , tel: [phone] [facility] Dysmetabolic syndrome xAcute bronchitisHyperlip idemiaHigh blood pressureObesity, unspecified 2 Micheal Dick. [address] [facility] [address], [place], [place], [address]. tel:[phone] Referring Provider: Mayelin Burton, [address] [facility] [address], [place], [address] . tel:[phone] [facility] [address], [place], [place], [address] , tel: [phone] [facility] Dysmetabolic syndrome xOther and unspecified hyperlipidemiaUnsp ecified essential hypertensionCervic algia 2 Micheal Dick. [address] [facility], [address], [place], [place], [address]. tel:[phone] Referring Provider: Mayelin Burton, [address] [facility] [address], [place], [address] . tel:[phone] [facility], [address], [place], [place], [address] , tel: [phone] [facility] CHRONIC SINUSITIS NOS 0-201 2 Micheal Dick. [address] [facility], [address], [place], [place], [address]. tel:[phone] Referring Provider: Mayelin Burton, [address] [facility] [address], [place], [address] . tel:[phone] [facility], [address], [place], [place], [address] , tel: [phone] [facility] Unspecified sinusitis (chronic)Backache, unspecifiedObesity , unspecified 1 Micheal Dick. [address] [facility], [address], [place], [place], [address]. tel:[phone] Referring Provider: Mayelin Burton, [address] [facility] [address], [place], [address] . tel:[phone] [facility], [address], [place], [place], [address] , [place] tel: [phone] [facility] HYPERLIPIDEMIA NEC/NOSHYPERTENSIO N NOSDYSMETABOLIC SYNDROME XOBESITY NOS Aug-2 5201 1 Micheal Dick. [address] [facility], [address], [place], [place], [address]. tel:[phone] [facility], [address], [place], [place], [address] , [place] tel: [phone] [facility] BACKACHE NOSESOPHAGEAL REFLUX Feb- 8 0 Micheal Dick. [address] [facility], [address], [place], [place], [address]. tel:[phone] [facility], [address], [place], [place], [address] , [place] tel: [phone] [facility] SIALOADENITIS Syd-0 5-200 8 Micheal Mayelin. [address] [facility], [address], [place], [place], [address]. tel:[phone] [facility], [address], [place], [place], [address] , [place] tel: [phone] [facility] CHRONIC SINUSITIS NOS Apr-0 9-200 7 Micheal Dick. [address] [facility], [address], [place], [place], [address]. tel:[phone] [facility], [address], [place], [place], [address] , [place] tel: [phone] [facility] MITRAL VALVE DISORDER May-2 5-200 6 Micheal Mayelin. [address] [facility], [address], [place], [place], [address]. tel:[phone] [facility], [address], [place], [place], [address] , [place] tel: [phone] [facility] CERVICALGIA Syd-3 0-200 5 Micheal Dick. [address] [facility], [address], [place], [place], [address]. tel:[phone] [facility], [address], [place], [place], [address] , [place] tel: [phone] [facility] No Information Oct-0 4-200 4 Micheal Mayelin. [address] [facility], [address], [place], [place], [address]. tel:[phone] [facility], [address], [place], [place], [address] , tel: [phone] [facility] FEVER Aug-2 7-200 1 Micheal Dick. [address] [facility], [address], [place], [place], [address]. tel:[phone] [facility], [address], [place], [place], [address] , [place] tel: [phone] [facility] NEED PRPHYL VC VRL HEPAT 4-200 0 Micheal Dick. [address] [facility], [address], [place], [place], [address]. tel:[phone] Family History Family Member Type Diagnosis Age At Onset Father Problem (finding) Myocardial infarction Problem (finding) Family history of hyper tension Mother Problem (finding) COPD/HTN Immunizations Vaccine Date Status Comments Fluzone Quad , spli t virus, 0.5mL dosage administered Note: work ; Source: Other Provider Tdap refused Source: New Imm unization Record Td (adult) preservative free refused Source: New Immunization Record Influenza, injectable, quadrivalent, 0.5mL dosage administered Source: Other Provider influenza, injectable, quadrivalent, (3 years or older) administered Source: [place] [id number] - Influenza administered Source: So urce Unspecified Payers Payer name Insurance type Covered alliance party ID Authoriza tion(s) [place] [id number] [place] [id number] [place] [id number] Social History Type Description Quantity Date Captured [...]
[2024-10-06 16:05] VITALS: BP 117/63; PULSE 73; RESP 18; TEMP 36.3; O2SAT 98
--- NOTE | 2024-10-06 16:16 | ED_ITS ---
HPI - General Adult General Chief complaint: Urogenital-Female Stated complaint: uti symptoms History of Present Illness HPI narrative: Jayne Harman Is a fit 64-year-old female who presents with complaints of having urinary urgency and frequency that started last night. She states sy mptoms have continued on today. She denies any fevers or chills, denies abdominal pain denies flank pain denies any blood in her urine. Related Data Home Medications ?Medication ?Instructions ?Recorded ?Confirmed ?Last Taken ?Type aspirin 81 mg capsule 81 mg PO DAILY 10/06/24 10/06/24 Unknown History carvedilol 12.5 mg tablet mg 10/06/24 Unknown History hydralazine 50 mg tablet mg 10/06/24 Unknown History spironolactone 25 mg tablet mg 10/06/24 Unknown History Allergies Allergy/AdvReac Type Severity Reaction Status Date / Time No Known Allergies Allergy Verified 10/06/24 16:14 Review of Systems Review of Systems: All systems reviewed & are unremarkable except as noted in HPI and below PMFSH Past Medical History Medical History Cerebrovascular accident Brain CT on 04/05/2022 shows and unchanged small old infarct at the anterior right temporal lobe. Arthritis Gastroesophageal reflux disease Obstructive sleep apnea Hyperlipidemia No longer on a statin following weight loss. Hypertension Surgical History Surgical History History of wisdom tooth extraction History of sinus surgery History of fusion of cervical spine Family History Family History Father Family history of congenital heart disease Mother Family history of chronic obstructive pulmonary disease Other Hypertension Social History Social History Social History: Surrogate medical decision maker: Mariano Harman, spouse. Code status: Full code. Smoking status: Never smoker Alcohol intake: current Drinks per week: 7 Alcohol use details: One alcoholic beverage a night. Substance use: never Lack of Transportation: No Lack of Food: Never True Current Housing: I Have Housing Concerned About Future Housing: No Difficulty Paying Gas/Electric Bills: No Difficulty Paying for Meds: No Currently Unemployed: No Education: Associate Degree Difficulty w/ Childcare or Family Care: No Additional living arrangements comments: The patient lives with her in [place]. 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 Spiritual care concerns: No Exam Narrative: GENERAL: Well-appearing, well-nourished, and in no acute distress. HEAD: Normocephalic, atraumatic. EYES: PERRLA and EOMI. ENT: Nares clear, no rhinorrhea or epistaxis. Mucous membranes moist. Oropharynx without tonsillar hypertrophy exudate or other lesions. NECK: Supple. No adenopathy or masses. No carotid bruits or JVD CHEST: Clear to auscultation. No respiratory distress. No wheezes rales or rhonchi HEART: Regular rate and rhythm. Normal peripheral pulses. ABDOMEN: Soft, nontender, nondistended, normal active bowel sounds. EXTREMITIES: Normal range of motion. SKIN: Warm, dry, no rash. NEURO: No focal deficits. Alert and oriented x3. PSYCH: Normal mood and affect. Course Course Level of Care: Express Care Visit Vital Signs Vital signs: Vital Signs Temperature 36.3 C L 10/06/24 16:05 Pulse Rate 73 10/06/24 16:05 Respiratory Rate 18 10/06/24 16:05 Blood Pressure 117/63 10/06/24 16:05 Pulse Oximetry 98 10/06/24 16:05 Oxygen Delivery Room Air 10/06/24 16:05 Temperature 36.3 C L 10/06/24 16:05 Pulse Rate 73 10/06/24 16:05 Respiratory Rate 18 10/06/24 16:05 Blood Pressure 117/63 10/06/24 16:05 Pulse Oximetry 98 10/06/24 16:05 Oxygen Delivery Room Air 10/06/24 16:05 Medical Decision Making [facility] Narrative Medical decision making narrative: 64 year-old patient presenting with suprapubic pain and urinary symptoms consistent with UTI. Urinalysis is obtained and positive for signs of infection. Urine culture sent. Patient started on Keflex and strongly advised to return for any increasing or worsening pain, fevers or vomiting. They expressed understanding of instructions and is discharged in stable condition. Procedures: Pulse oximetry interpretation - not hypoxic. Review of medical records. DISPOSITION: Discharged home in stable condition. IMPRESSION: 1. Acute uncomplicated cystitis. Medical Records Medical records reviewed: Yes I reviewed the external patient's medical records. Vital Signs Vital Signs: Vital Signs Temperature 36.3 C L 10/06/24 16:05 Pulse Rate 73 10/06/24 16:05 Respiratory Rate 18 10/06/24 16:05 Blood Pressure 117/63 10/06/24 16:05 Pulse Oximetry 98 10/06/24 16:05 Oxygen Delivery Room Air 10/06/24 16:05 Temperature 36.3 C L 10/06/24 16:05 Pulse Rate 73 10/06/24 16:05 Respiratory Rate 18 10/06/24 16:05 Blood Pressure 117/63 10/06/24 16:05 Pulse Oximetry 98 10/06/24 16:05 Oxygen Delivery Room Air 10/06/24 16:05 vitals reviewed by me Lab Data Lab results reviewed: Yes I reviewed the patient's lab results. Discharge Plan Discharge Clinical Impression: Urinary tract infection Qualifiers: Urinary tract infection type: acute cystitis Hematuria presence: with hematuria Qualified Code(s): N30.01 - Acute cystitis with hematuria Patient Disposition: Home Condition: Stable Instructions: Antibiotic Form, Urinary Tract Infection in Women (ED) Additional Instructions: Start taking the Cephalexin twice daily for 1 week Start taking the Pyridium for the discomfort 3 times a day up to 6 doses total Push hydration drinking plenty of water we are sending a urine culture, if it comes back and shows you need a different antibiotic we will notify you. Follow up with your PCP in 1 week to ensure you are improved. Patient Language: Finnish Prescriptions: New cephalexin 500 mg capsule 500 mg PO Q12H Qty: 14 0RF phenazopyridine [Pyridium] 200 mg tablet 200 mg PO TID PRN (Reason: pain) Qty: 6 0RF No Action aspirin 81 mg capsule 81 mg PO DAILY carvedilol 12.5 mg tablet spironolactone 25 mg tablet hydralazine 50 mg tablet Follow-up/Referrals: Crow,Connie Farrell MD [Primary Care Provider] - 1 Week Time of Disposition: 16:22
[2024-10-06 16:26] LABS: EDUAAPPEAR Cloudy; EDUABILI Negative (Negative); EDUABLOOD 1+ (Negative); EDUACOLOR1 Yellow; EDUAGLUCOSE Negative (Negative); EDUAKETONE Negative (Negative); EDUALEUKO 1+ (Negative); EDUANITRATE Negative (Negative); EDUAPROTEIN Trace (Negative); EDUASPGRAVITY 1.015; EDUAUROBILI 0.2
== END 2024-10-06 16:26 | disposition home or self-care (01) ==
PROVIDERS: Emergency Provider Nurse Practitioner Family; PCP Internal Medicine
DX: N30.01 Acute cystitis with hematuria (principal); I10 Essential (primary) hypertension; K21.9 Gastro-esophageal reflux disease without esophagitis; M19.90 Unspecified osteoarthritis, unspecified site; I25.2 Old myocardial infarction; Z79.82 Long term (current) use of aspirin
CPT/HCPCS: 81003; 87077; 87086; 87186; 99213; G0463

== ENCOUNTER 2024-10-29 09:31 | Outpatient (CLI) | payer BC, SELFPAY ==
--- NOTE | ~2024-10-29 | XR_ITS ---
EXAMINATION: XR lumbar spine min 4V DATE: 10/29/2024 09:47 INDICATION: Nontraumatic lumbar pain TECHNIQUE: Anteroposterior, lateral, and bilateral oblique views of the lumbar spine, and cone-down l ateral view of the lumbosacral junction were obtained. COMPARISON: Lumbar spine MR dated 04/01/2014 and two-view chest radiograph dated 10/21/2022 FINDINGS: 9 degrees levocurvature measured between T12 and L4. Sagittal alignment is normal. Chronic minimal an terior wedging at T11 and T12. Lumbar vertebral body heights are normal. No pars interarticularis def ects. Moderate disc height loss at T10-T11 through T12-L1, mild to moderate disc height loss at L1-L2 and mild disc height loss at L3-L4.There is multilevel moderate bilateral lumbar facet osteoarthriti s throughout the lumbar spine. Mild bilateral hip and sacroiliac osteoarthritis. IMPRESSION: 1. 9 degree lumbar levocurvature with mild to moderate lumbar and lower thoracic spondylosis. Reviewed, dictated and finalized at location A. IMPRESSION: 1. 9 degree lumbar levocurvature with mild to moderate lumbar and lower thoraci c spondylosis.
--- OUTSIDE RECORDS SUMMARY | 2024-10-29 10:27 | XMS_ITS | Encounter Summary ---
Author Organization [facility] Address [address] [place] [address] Care Team Providers Care Vice Chairman Name Role Phone Connie Maria MD Primary Care Provider Encounter Details Date Type Department Care Team (Late st Contact Info) Description 01/31/2008 Orders Only [facility] Health Information Management [address] [place] [address] Scanning, Provider Social History Tobacco Use Types Packs/Day Years Used Date Smoking Tobacco: Never Assessed Comments Unknown Sex and Gender Information Value Date Recorded Sex Assigned at Not on file Legal Sex Female 3:07 AM SAP PP CONSULTANT Gender Identity Not on file Sexual Orientation Not on file documented as of this encounter Plan of Treatment Upcoming Encounters Date Type Department Care Team (Late st Contact Info) Description 03/24/2025 7:30 AM SAP PP CONSULTANT Hospital Encounter [facility] [address] [place] [address] Davy Shultz MD [address] [place] [address] 03/24/2025 7:30 AM SAP PP CONSULTANT - 03/24/2025 7:45 AM SAP PP CONSULTANT Surgery [facility] [address] [place] [address] Davy Shultz MD [address] [place] [address] COLONOSCOPY Scheduled Procedures Name Priority Associated Diagnoses Date/Ti me COLONOSCOPY History of colon polyps 03/24/2025 7:30 AM SAP PP CONSULTANT documented as of this encounter Procedures Procedure [...] documented as of this encounter Care Teams Vice Chairman Relationship Specialty Start Date End Date Connie Maria MD PCP - General Internal Medicine 02/12/18 documented as of this encounter
--- OUTSIDE RECORDS SUMMARY | 2024-10-29 10:27 | XMS_ITS | Clinical Summary ---
Author Organization [facility] [address] Address [address] [place] [address] Care Team Providers Care Weigher Packing Name Role Phone Connie Maria MD Primary [...] (two) times a day 60 g 2 09/04/19 24 Active cholecalciferol , vitamin D3, (D3-5000 ORAL) Take by mouth A ctive zinc gluconate 30 mg tablet Take by mouth Act david magnesium oxide 400 mg magnesium capsule Take by mouth Active pyridoxine (VITAMIN B-6) 100 mg tablet Take 1 tablet (100 mg total) by mouth daily Active cyanocobalamin, vitamin B-12, (B-12 DOTS ORAL) Take by mouth Active diclofenac sodium (VOLTAREN) 1 % gel APPLY 4 GRAMS TOPICALLY 4 TIMES A DAY 400 g 1 01/04/20 24 Active carvediloL (COREG) 25 mg tablet Take 1 tablet (25 mg total) by mouth 2 (two) times a day with meals 180 tablet 3 02/02/20 24 025 Active hydrALAZINE (APRESOLINE) 50 mg tabletIndicatio ns:hypertension Take 1 tablet (50 mg total) by mouth 3 (three) times a day 90 tablet 11 03/05/20 24 Active spironolactone (ALDACTONE) 25 mg tablet Take 1 tablet (25 mg total) by mouth daily 30 tablet 11 03/05/20 24 025 Active furosemide (LASIX) 20 mg tablet TAKE 1 TABLET DAILY NEEDED FOR SWELLING 90 tablet 1 04/02/20 24 Active lisinopriL (PRINIVIL,ZESTR IL) 40 mg tablet TAKE 1 TABLET DAILY 90 tablet 1 05/24/19 25 Active IBU 600 mg tablet TAKE 1 TABLET DAILY 90 tablet 1 05/24/19 25 Active atorvastatin (LIPITOR) 40 mg tablet TAKE 1 TABLET DAILY 90 tablet 3 10/16/19 25 Active omeprazole (PriLOSEC) 20 mg capsuleIndicati ons:Gastroesoph ageal reflux disease without esophagitis TAKE 1 CAPSULE DAILY 90 capsule 1 10/16/19 25 Active atorvastatin (LIPITOR) 40 mg tablet Take 1 tablet (40 mg total) by mouth daily 90 tablet 3 11/03/19 24 025 Discontinued omeprazole (PriLOSEC) 20 mg capsuleIndicati ons:Gastroesoph ageal reflux disease without esophagitis TAKE 1 CAPSULE DAILY 90 capsule 1 04/18/20 24 025 Discontinued amoxicillin-cla vulanate (AUGMENTIN) 875-125 mg per tablet Take 1 tablet by mouth 2 (two) times a day for 21 days 42 tablet 09/10/19 25 025 Active Problems Problem Noted Date Diagnosed Date [...] Department Care Team Description 09/10/2024 Orders Only [facility] at [address] [phone] Davy Shultz MD History of colon polyps (Primary Dx) 09/09/2024 4:00 PM CDT Office Visit [facility] [address] [place] [phone] Connie Maria MD Routine general medical examination at a health care facility (Primary Dx); Primary hypertension; Stage 3a chronic kidney disease (HCC); Dyslipidemia; Obstructive sleep apnea (adult) (pediatric); Morbid (severe) obesity due to excess calories (HCC); BMI 39.0-39.9,adult; Chronic left-sided low back pain without sciatica; History of colon polyps; Colon cancer screening; Chronic maxillary sinusitis 09/04/2024 Telephone [facility] [address] [place] [phone] Kika Retana NP Test Results; Call Back 09/03/2024 Orders Only [facility] Health Information Management [address] [place] [address] Scanning, Provider 09/03/2024 Telephone [facility] [address] [place] [phone] Connie Maria MD Test Results 07/29/2024 E-Visit [facility] [address] [place] [phone] Connie Maria MD Your Medications from Last [...] loss Father Yaritza Goetz Heart attack Father Merle V[place]andelaria Heart disease Father Yaritza Goetz Family history [...] on file Legal Sex Female 3:07 AM DRAINAGE INSPECTOR Gender Identity Not on file Sexual Orientation [...] st Contact Info) Description 03/24/2025 7:30 AM DRAINAGE INSPECTOR Hospital Encounter [facility] [address] [place] [address] Davy Shultz MD [facility] [facility] [address] [place] [address] 03/24/2025 7:30 AM DRAINAGE INSPECTOR - 03/24/2025 7:45 AM DRAINAGE INSPECTOR Surgery [facility] [address] [place] [address] Davy Shultz MD [address] [place] [address] COLONOSCOPY Scheduled Procedures Name Priority Associated Diagnoses Date/Ti me COLONOSCOPY History of colon polyps 03/24/2025 7:30 AM DRAINAGE INSPECTOR Health Maintenance Due Date Last Done Comments [...] Comment:JULY AND NEG IN 03/16/2020 03/15/2020 Insurance [employer] [place] [employer] [place] [facility] Care Teams Weigher Packing Relationship Specialty Start Date End Date Connie Maria MD PCP - General Internal Medicine 02/12/18
--- OUTSIDE RECORDS SUMMARY | 2024-10-29 10:27 | XMS_ITS | Encounter Summary ---
Author Organization [facility] Care Team Providers Care Diplomatic Interpreter/Translator Name Role Phone Connie Maria MD Primary Care Provider Encounter Details Date Type Department Care Team (Latest Contact Info) Description 02/12/2018 Orders Only [facility] ProviderByron MD [address] [place] [id number] Social History Tobacco Use Types Packs/Day Years Used Date Smoking Tobacco: Never Comments Unknown Sex and Gender Information Value Date Recorded Sex Assigned at Not on file Legal Sex Female 3:07 AM TRAVOGRAPH OPERATOR Gender Identity Not on file Sexual Orientation Not on file documented as of this encounter Plan of Treatment Upcoming Encounters Date Type Department Care Team (Late st Contact Info) Description 03/24/2025 7:30 AM TRAVOGRAPH OPERATOR Hospital Encounter [facility] GI [facility] [address] [place] [address] Davy Shultz MD [facility] [facility] [address] [place] [phone] 03/24/2025 7:30 AM TRAVOGRAPH OPERATOR - 03/24/2025 7:45 AM TRAVOGRAPH OPERATOR Surgery [facility] [address] [place] [address] Davy Shultz MD [address] [place] [address] COLONOSCOPY Scheduled Procedures Name Priority Associated Diagnoses Date/Ti me COLONOSCOPY History of colon polyps 03/24/2025 7:30 AM TRAVOGRAPH OPERATOR documented as of this encounter Procedures Procedure [...] AM CDT Ordered by an unspecified provider. [facility] Provider Final Res ult * SCAN - LABS (02/15/2018 12:00 AM CDT) Narrative 02/15/2018 12:00 AM CDT Ordered by an unspecified provider. [facility] Provider Final Res ult * CARDIOLOGY REPORT (02/15/2018 12:00 AM CDT) Anatomical Region Laterality Modality Other Narrative 02/15/2018 12:00 AM CDT Ordered by an unspecified provider. [facility] Provider [facility] RODARTE Final Result documented in this encounter Visit Diagnoses Not on filedocumented in this encounter Additional Health Concerns Infection Onset Date Last Indicated Resolved Time COVID: Suspected 09/03/2019 09/03/2019 09/17/2019 3:06 AM CDT COVID19 Comment:JULY AND NEG IN 03/16/2020 03/15/2020 documented as of this encounter Care Teams Diplomatic Interpreter/Translator Relationship Specialty Start Date End Date Connie Maria MD PCP - General Internal Medicine 02/12/18 documented as of this encounter
--- OUTSIDE RECORDS SUMMARY | 2024-10-29 10:27 | XMS_ITS | Referral Summary ---
Author Organization [facility] [address] Address [address] [place] [address] Care Team Providers Care Diploma Medical Assistant Name Role Phone Connie Maria MD Primary Care Provider Encounters Date Type Department Care Team Description 09/10/2024 Orders Only [facility] at [address] [place] [phone] Davy Shultz MD History of colon polyps (Primary Dx) 09/09/2024 4:00 PM CDT Office Visit [facility] [address] [place] [address] [address] [place] [phone] Connie Maria MD Routine general medical examination at a health care facility (Primary Dx); Primary hypertension; Stage 3a chronic kidney disease (HCC); Dyslipidemia; Obstructive sleep apnea (adult) (pediatric); Morbid (severe) obesity due to excess calories (HCC); BMI 39.0-39.9,adult; Chronic left-sided low back pain without sciatica; History of colon polyps; Colon cancer screening; Chronic maxillary sinusitis 09/04/2024 Telephone [facility] [address] [place] [address] [address] [place] [phone] Kika Retana NP Test Results; Call Back 09/03/2024 Orders Only [facility] Health Information Management [address] [place] [id number] Scanning, Provider 09/03/2024 Telephone [facility] [address] [place] [address] [place] [phone] Connie Maria MD Test Results 07/29/2024 E-Visit [facility] [address] [place] [address] [place] [phone] Connie Maria MD Your Medications from [...] file Legal Sex Female 3:07 AM FIELD PLACEMENT DIRECTOR Gender Identity Not on file Sexual [...] st Contact Info) Description 03/24/2025 7:30 AM FIELD PLACEMENT DIRECTOR Hospital Encounter [facility] [address] [place] [address] Davy Shultz MD [facility] [facility] [address] [place] [address] 03/24/2025 7:30 AM FIELD PLACEMENT DIRECTOR - 03/24/2025 7:45 AM FIELD PLACEMENT DIRECTOR Surgery [facility] [address] [place] [address] Davy Shultz MD [facility] [facility] [address] [place] [address] COLONOSCOPY Scheduled Procedures Name Priority Associated Diagnoses Date/Ti me COLONOSCOPY History of colon polyps 03/24/2025 7:30 AM FIELD PLACEMENT DIRECTOR Procedures Procedure Name Priority Date/Time Associated Diagnosis Comments SCAN - LABS 09/03/2024 MAMMOGRAPHY Routine 12/12/2023 COLONOSCOPY Routine 03/16/2020 PAP SMEAR WITH HPV Routine 01/01/2020 from Last 3 Months or Most Recently Relevant to Health Maintenance Results * SCAN - LABS (09/03/2024) Provider Scanning Final Result * MAMMOGRAPHY (12/12/2023) Mammography Normal Historical Provider HEALTH MAINTENANCE Final Result * Colonoscopy (03/16/2020) Anatomical Region Laterality Modality Other Historical Provider ENDOSCOPY PROCEDURES Cyndi l Result * PAP SMEAR WITH HPV (01/01/2020) Pap smear Normal Historical Provider HEALTH MAINTENANCE Final Result from Last 3 Months or Most Recently Relevant to Health Maintenance Additional Health Concerns Infection Onset Date Last Indicated COVID19 Comment:JULY AND NEG IN 03/16/2020 03/15/2020 Insurance [employer] [place] [employer] [place] [facility] Care Teams Diploma Medical Assistant Relationship Specialty Start Date End Date Connie Maria MD PCP - General Internal Medicine 02/12/18
--- OUTSIDE RECORDS SUMMARY | 2024-10-29 10:27 | XMS_ITS | Continuity of Care Document ---
Author Organization [employer] Address [address] [place] [address] Phone Care Team Providers Care Pediatrician/Medical Doctor Name Role Phone Kari Augustine DO Unavailable [...] Diagnoses Date Provider Providers Copied on Encounter [facility], [address], [place], [place], [address] , tel: [phone] [facility] No Information 8 Davide Pierce. [address], [address], [place]. tel:[phone] [facility], [address], [place], [place], [address] , tel: [phone] [facility] No Information 8 Alan Tatum. [address] [place] [address], [id number], [place]. tel:[phone] [facility], [address], [place], [place], [address] , [place] tel: [phone] [facility] No Information 8 Lupe Barfield. [address] [place] [address], [address], [place]. tel:[phone] [facility], [address], [place], [place], [address] , tel: [phone] [facility] Body mass index (BMI) 38.0-38.9, adultEssential hypertensionGait disorderMetabolic syndrome 8 Lupe Gaylin. [address] [place] [address], [address], [place]. tel:[phone] Referring Provider: Kari Farrell, [address] [address], [place], [address]. tel:[phone] [facility], [address], [place], [place], [address] , tel: [phone] [facility] No Information 8 Davide Kari. [address] [facility] , [address] [facility], [place], [facility], . tel:[phone] [facility], [address], [place], [place], [address] , tel: [phone] [facility] No Information 8 Wolfgang Aguirrera. [address] [place] [address], [facility], . tel:[phone] [facility], [address], [place], [place], [address] , tel: [phone] [facility] No Information 8 Davide Molinain. [address] [facility], [address] [place] [address], [facility], . tel:[phone] [facility], [address], [place], [place], [address] , tel: [phone] [facility] Body mass index (BMI) 37.0-37.9, adultEssential hypertensionRight arm pain 7 Davide Kari. [address] [facility], [address] [place] [address], [facility], [place]. tel:[phone] Referring Provider: Kari Farrell, [address] [facility] [address] [place] [address], [facility]. tel:[phone] [facility], [address], [place], [place], [address] , tel: [phone] [facility] No Information 7 Davide Kari. [address] [facility] , [address] [place] [address], [facility], [place]. tel:[phone] [facility], [address], [place], [place], [address] , tel: [phone] [facility] No Information 7 Davide Molinain. [address] [facility] , [address], [place], [facility], . tel:[phone] [facility], [address], [place], [place], [address] , tel:[phone] [facility] No Information 7 Wolfgang Benjamin. [address] [place] [address], [address], . tel:[phone] [facility], [address], [place], [place], [address] , tel: [phone] [facility] Annual physical exam 7 Wolfgang Benjamin. [address] [place] [address], [facility], [place]. tel:[phone] [facility], [address], [place], [place], [address] , tel:[phone] [facility] No Information Davide Pierce. [address] [place] [address], [address], [facility], . tel:[phone] [facility], [address], [place], [place], [address] , [place] tel: [phone] [facility] Body mass index (BMI) 37.0-37.9, adultAnnual physical exam Wolfgang Benjamin. [address] [place] [address], [facility], . tel:[phone] Referring Provider: Kari Farrell, [address] [facility] [address], [place], [facility]. tel:[phone] [facility], [address], [place], [place], [address] , [place] tel: [phone] [facility] Body mass index (BMI) 36.0-36.9, adultEssential hypertensionGait disorder 7 Davide Pierce. [address] [facility], [address] [place] [address], [facility], [place]. tel:[phone] Referring Provider: Kari Farrell [address] [facility] [address] [facility], [place], [address]. tel:[phone] [facility], [address], [place], [place], [address] , tel: [phone] [facility] Body mass index (BMI) 37.0-37.9, adultGait disorderEssential hypertension Wolfgang Benjamin. [address] [place] [address], [address], [place]. tel:[phone] Referring Provider: Kari Farrell, [address] [facility] [address] [facility], [place], [facility]. tel:[phone] [facility], [address], [place], [place], [address] , tel: [phone] [facility] Gait disorder Davide Pierce. [address] [place] [address], [address], [facility], [place]. tel:[phone] Referring Provider: Kari Farrell, [address] [facility] [address] [place] [address], [facility]. tel:[phone] [facility], [address], [place], [place], [address] , tel: [phone] [facility] Mass of left adrenal gland Davide Pierce. [address] [place] [address], [address], [address], [place]. tel:[phone] [facility], [address], [place], [place], [address] , tel: [phone] [facility] Viral upper respiratory tract infection Davide Pierce. [address] [place] [address], [address], [facility], . tel:[phone] Referring Provider: Kari Farrell, [address] [facility] [address] [place] [address], [facility]. tel:[phone] [facility], [address], [place], [place], [address] , tel: [phone] [facility] Back pain, unspecified back location, unspecified back pain laterality, unspecified chronicity 6 Augustine Kari. [address] [facility], [address], [facility], [place]. tel:[phone] [facility], [address], [place], [place], [address] , tel: [phone] [facility] Gait disorder 6 Augustine Kari. [address] [facility], [address] [facility], [place], [facility], [place]. tel:[phone] [facility], [address], [place], [place], [address] , tel: [phone] [facility] Gait disorder 6 Augustine Kari. [address] [facility], [address], [facility], . tel:[phone] [employer], [address], [place], [place], [address] , tel: [phone] [facility] Gait disorderAnosmia 6 Augustine Kari. [address] [facility], [address], [facility], . tel:[phone] Referring Provider: Kari Farrell, [address] [place] [address] [place] [address], [facility]. tel:[phone] [employer], [address], [place], [place], [address] , tel: [phone] [facility] Gait disorder 6 Augustine Kari. [address] [facility], [address] [place] [address], [facility], [place]. tel:[phone] [facility], [address], [place], [place], [address] , tel: [phone] [facility] Physical exam, annual 6 Davide Kari. [address] [facility], [address], [facility], [place]. tel:[phone] Referring Provider: Kari Farrell [address] [facility] [address], [place], [address]. tel:[phone] [facility], [address], [place], [place], [address] , tel: [phone] [facility] Obesity (BMI 30.0-34.9) 5 Davide Pierce. [address] [facility], [address], [place], [address], [place]. tel:[phone] Referring Provider: Kari Farrell, [address] [facility] [address], [place], [address]. tel:[phone] [facility], [address], [place], [place], [address] , tel: [phone] [facility] Metabolic syndromeMorbid (severe) obesity due to excess caloriesDietary counseling and surveillance 5 Lyn Pickett. [facility] [address], [place], [place], [address]. tel:[phone] Referring Provider: Kari Farrell, [address] [facility] [address] [facility], [place], [facility]. tel:[phone] [facility], [address], [place], [place], [address] , tel: [phone] [facility] Obesity (BMI 35.0-39.9 without comorbidity)Bilate ral foot painPlantar fascial fibromatosis 5 Davide Pierce. [address] [facility], [address] [place] [address], [address], [place]. tel:[phone] Referring Provider: Kari Farrell, [address] [facility] [address] [facility], [place], [address]. tel:[phone] [facility], [address], [place], [place], [address] , tel: [phone] [facility] UTI (urinary tract infection) 5 Davide Pierce. [address] [facility], [address], [address], [place]. tel:[phone] [facility], [address], [place], [place], [address] , tel: [phone] [facility] Hyperlipidemia Aug-3 1-201 5 Davide Kari. [address] [facility], [address] [address], [place], [facility], [place]. tel:[phone] [facility], [address], [place], [place], [address] , tel: [phone] [facility] HypertensionDizzin ess Syd-3 0-201 5 Augustine Kari. [address] [facility], [address] [address], [place], [facility], [place]. tel:[phone] Referring Provider: Kari Farrell, [address], [facility]. tel:[phone] [facility], [address], [place], [place], [address] , tel: [phone] [facility] DizzinessGait disorder Apr-2 8-201 5 Augustine Kari. [address] [facility], [address] [address], [place], [facility], [place]. tel:[phone] [facility], [address], [place], [place], [address] , tel: [phone] [facility] Gait disorderDizziness Apr-0 7-201 5 Davide Kari. [address] [facility], [address], [facility], [place]. tel:[phone] [facility], [address], [place], [place], [address] , [place] tel: [phone] [facility] Cough Ismael-0 6201 5 Davide Kari. [address] [facility], [address], [facility], [place]. tel:[phone] [facility], [address], [place], [place], [address] , tel: [phone] [facility] Cough Dec-2 6-201 4 Augustine Kari. [address] [facility], [address], [facility], [place]. tel:[phone] Referring Provider: Kari Farrell, [address] [facility] [address] [facility], [place], [facility]. tel:[phone] [facility], [address], [place], [place], [address] , tel: [phone] [facility] Cough Dec-2 2-201 4 Davide Kari. [address] [facility], [address] [place] [address], [facility], [place]. tel:[phone] Referring Provider: Kari Farrell, [address] [facility] [address] [facility] [facility], [place], [facility]. tel:[phone] [facility], [address], [place], [place], [address] , tel: [phone] [facility] CoughFever Dec- 2-201 4 Davide Kari. [address] [facility], [address] [place] [address], [facility], . tel:[phone] Referring Provider: Kari Farrell, [address] [facility] [address] [facility], [place], [facility]. tel:[phone] [facility], [address], [place], [place], [address] , tel: [phone] [facility] Dizziness Nov-1 0-201 4 Davide Kari. [address] [facility], [address] [place] [address], [facility], [place]. tel:[phone] Referring Provider: Kari Farrell, [address] [facility] [address] [place] [address], [facility]. tel:[phone] [facility], [address], [place], [place], [address] , [place] tel: [phone] [facility] Dizziness Oct-0 1-201 4 Davide Kari. [address] [facility], [address] [place] [address], [facility], [place]. tel:[phone] [facility], [address], [place], [place], [address] , tel: [phone] [facility] DizzinessGait disorder Sep-2 3-201 4 Davide Kari. [address] [facility], [address], [place], [address], [place]. tel:[phone] [facility], [address], [place], [place], [address] , [place] tel: [phone] [facility] Dizziness 4 Davide Pierce. [address] [facility], [address] [facility], [place], [facility], [place]. tel:[phone] Referring Provider: Kari Farrell, [address] [facility] [address] [facility], [place], [facility]. tel:[phone] [facility], [address], [place], [place], [address] , [place] tel: [phone] [facility] Annual physical exam 4 Davide Pierce. [address] [facility], [address] [place] [address], [facility], [place]. tel:[phone] Referring Provider: Kari Farrell, [address] [facility] [address] [facility], [place], [facility]. tel:[phone] [facility], [address], [place], [place], [address] , [place] tel: [phone] [facility] Hypertension 4 Davide Pierce. [address] [facility], [address] [place] [address], [facility], [place]. tel:[phone] [facility], [address], [place], [place], [address] , [place] tel: [phone] [facility] Left arm pain 4 Davide Kari. [address] [facility], [address] [facility], [place], [facility], [place]. tel:[phone] Referring Provider: Kari Farrell, [address] [facility] [address] [facility], [place], [facility]. tel:[phone] [facility], [address], [place], [place], [address] , tel: [phone] [facility] Radicular painHypertensionPe butch edema 4 Davide Pierce. [address] [facility], [address] [place] [address], [facility], . tel:[phone] Referring Provider: Kari Farrell, [address], [facility]. tel:[phone] [facility] [address], [place], [place], [address] , tel: [phone] [facility] C. difficile colitis 4 Davide Pierce. [address] [facility], [address], [facility], . tel:[phone] Referring Provider: Kari Farrell, [address] [facility] [address] [place] [address], [facility]. tel:[phone] [facility] [address], [place], [place], [address] , tel: [phone] [facility] Screening for malignant neoplasm of the rectum 3 Davide Pierce. [address] [facility], [address], [facility], . tel:[phone] Referring Provider: Kari Farrell, [address], [facility]. tel:[phone] [facility] [address], [place], [place], [address] , tel: [phone] [facility] Acute diarrheaMetabolic syndrome 3 Davide Pierce. [address] [place] [address], [address], [facility], . tel:[phone] Referring Provider: Mayelin Burton, [address] [facility] [address], [place], [address] . tel:[phone] [facility] [address], [place], [place], [address] , tel: [phone] [facility] Annual physical examDysmetabolic syndrome xHyperlipidemiaHig h blood pressureSinusitisK nee painMorbid obesityRoutine Medical Exam 3 Micheal Dick. [address] [facility], [address], [place], [place], [address]. tel:[phone] Referring Provider: Mayelin Burton, [address] [facility] [address], [place], [address] . tel:[phone] [facility], [address], [place], [place], [address] , tel: [phone] [facility] No Information 3 Wolf Rice. [address] [facility], [address], [place], [place], [address]. tel:[phone] [facility], [address], [place], [place], [address] , tel: [phone] [facility] High blood pressureHyperlipid emiaObesity, unspecifiedDysmeta bolic syndrome xSinusitis 3 Micheal Dick. [address] [facility] [address], [place], [place], [address]. tel:[phone] Referring Provider: Mayelin Burton, [address] [facility] [address], [place], [address] . tel:[phone] [facility] [address], [place], [place], [address] , tel: [phone] [facility] Dysmetabolic syndrome xAcute bronchitisHyperlip idemiaHigh blood pressureObesity, unspecified 2 Micheal Dick. [address] [facility] [address], [place], [place], [address]. tel:[phone] Referring Provider: Mayelin Burton, [address] [facility] [address], [place], [address] . tel:[phone] [facility] [address], [place], [place], [address] , tel: [phone] [facility] Dysmetabolic syndrome xOther and unspecified hyperlipidemiaUnsp ecified essential hypertensionCervic algia 2 Micheal Dick. [address] [facility], [address], [place], [place], [address]. tel:[phone] Referring Provider: Mayelin Burton, [address] [facility] [address], [place], [address] . tel:[phone] [facility], [address], [place], [place], [address] , tel: [phone] [facility] CHRONIC SINUSITIS NOS 0-201 2 Micheal Dick. [address] [facility], [address], [place], [place], [address]. tel:[phone] Referring Provider: Mayelin Burton, [address] [facility] [address], [place], [address] . tel:[phone] [facility], [address], [place], [place], [address] , tel: [phone] [facility] Unspecified sinusitis (chronic)Backache, unspecifiedObesity , unspecified 1 Micheal Dick. [address] [facility], [address], [place], [place], [address]. tel:[phone] Referring Provider: Mayelin Burton, [address] [facility] [address], [place], [address] . tel:[phone] [facility], [address], [place], [place], [address] , [place] tel: [phone] [facility] HYPERLIPIDEMIA NEC/NOSHYPERTENSIO N NOSDYSMETABOLIC SYNDROME XOBESITY NOS Aug-2 5201 1 Micheal Dick. [address] [facility], [address], [place], [place], [address]. tel:[phone] [facility], [address], [place], [place], [address] , [place] tel: [phone] [facility] BACKACHE NOSESOPHAGEAL REFLUX Feb- 8 0 Micheal Dick. [address] [facility], [address], [place], [place], [address]. tel:[phone] [facility], [address], [place], [place], [address] , [place] tel: [phone] [facility] SIALOADENITIS Syd-0 5-200 8 Micheal Mayelin. [address] [facility], [address], [place], [place], [address]. tel:[phone] [facility], [address], [place], [place], [address] , [place] tel: [phone] [facility] CHRONIC SINUSITIS NOS Apr-0 9-200 7 Micheal Dick. [address] [facility], [address], [place], [place], [address]. tel:[phone] [facility], [address], [place], [place], [address] , [place] tel: [phone] [facility] MITRAL VALVE DISORDER May-2 5-200 6 Micheal Mayelin. [address] [facility], [address], [place], [place], [address]. tel:[phone] [facility], [address], [place], [place], [address] , [place] tel: [phone] [facility] CERVICALGIA Syd-3 0-200 5 Micheal Dick. [address] [facility], [address], [place], [place], [address]. tel:[phone] [facility], [address], [place], [place], [address] , [place] tel: [phone] [facility] No Information Oct-0 4-200 4 Micheal Mayelni. [address] [facility], [address], [place], [place], [address]. tel:[phone] [facility], [address], [place], [place], [address] , tel: [phone] [facility] FEVER Aug-2 7-200 1 Micheal Dick. [address] [facility], [address], [place], [place], [address]. tel:[phone] [facility], [address], [place], [place], [address] , [place] tel: [phone] [facility] NEED PRPHYL VC VRL HEPAT 4-200 0 Micheal Dick. [address] [facility], [address], [place], [place], [address]. tel:[phone] Family History Family Member Type Diagnosis Age At Onset Problem (finding) Family history of hyper tension Mother Problem (finding) COPD/HTN Father Problem (finding) Myocardial infarction Immunizations Vaccine Date Status Comments Fluzone Quad , spli t virus, 0.5mL dosage administered Note: work ; Source: Other Provider Tdap refused Source: New Imm unization Record Td (adult) preservative free refused Source: New Immunization Record Influenza, injectable, quadrivalent, 0.5mL dosage administered Source: Other Provider influenza, injectable, quadrivalent, (3 years or older) administered Source: [place] [address] - Influenza administered Source: So urce Unspecified Payers Payer name Insurance type Covered libertarian ID Authoriza tion(s) [place] [id number] [place] [id number] [place] [id number] Social History Type Description Quantity Date Captured [...]
== END 2024-10-29 09:32 | disposition home or self-care (01) ==
LOC: ANHIMG 09:33
PROVIDERS: PCP Internal Medicine; Visit Provider Internal Medicine
DX: M47.894 Other spondylosis, thoracic region (principal); M47.896 Other spondylosis, lumbar region
CPT/HCPCS: 72110

== ENCOUNTER 2024-12-19 15:45 | Outpatient (RCR) | payer BC, SELFPAY ==
--- NOTE | 2024-09-16 13:29 | PCPTNOTE ---
Patient cancelled today's Evaluation due to illness.
--- NOTE | 2024-09-30 18:02 | OPREHPOC ---
Outpatient Therapy Plan of Care This is a Multidisciplinary Plan of Care that may contain components documented by all disciplines (PT, OT, and ST.) PT Problem 1 PT Problem #1 Knowledge Deficit PT Goal 1 Goal / Goal Update [place] with HEP Target Visit 4 PT Goal 2 Goal / Goal Update Report no back pain greater than 2/10 with ambulation of 1 mile Target Visit 8 PT Problem 2 PT Problem #2 Impaired Range of Motion PT Goal 1 Goal / Goal Update 1. Demonstrate -25 degrees dinorah hamstring length 2. Improve dinorah piriformis restriction to minimal bilaterally 3. Improve dinorah ankle dorsiflexion to 10+ degrees to improve terminal stance Target Visit 8 PT Problem 3 PT Problem #3 Impaired Strength PT Goal 1 Goal / Goal Update 1. Improve dinorah hip abduction strength to 4+/5 to improve lateral pelvic stability with ADLs PT Problem 4 PT Problem #4 Impaired Gait PT Goal 1 Goal / Goal Update Ambulate independent of Trendelenburg Target Visit 8
--- NOTE | 2024-09-30 18:02 | PTOPEVAL1 ---
Assessment and note entered by Benjamin Tellez, PT Evaluation Information Assessment Status Evaluation Diagnosis Chronic left sided low back pain ICD-10 Condition Codes (PT) Pain in low back M54.50 Subjective Information Patient reports that she has been having significant low back pain on the side that is increased with walking. She has been walking about 1-3 miles prior to pain onset and is now unable to do that. Low back pain increases with ambulation and extension based activity. Reported Pain Level Pain Score 1: Self Report Assessment PT Clinical Summary Patient presents with posterior chain tightness resulting in pain with progressive ambulation activity. Signs and symptoms consistent with spinal stenosis and compensation. Patient ambulates with mild Trendelenburg with R hip exacerbating problems and pain. Will benefit form skilled therapy to address [posterior chain tightness to improve stride with progression to lateral hip and core strength. Plan of Care Interventions Gait Training,Manual Therapy,Neuro Re-education, Therapeutic Activities,Therapeutic Exercise PT Services Indicated Yes Treatment Frequency and 1-2x/week for 8 visits Duration These treatments will address the objective and functional deficits as defined above. The patient will be advanced safely and appropriately in order for the patient to progress towards his/her prior level of function. Additional exercises will be introduced and as well as a comprehensive home exercise program upon discharge, if needed, ?to ensure carryover of functional gains achieved in the clinic. This treatment plan has been reviewed and agreement upon by the patient.
--- NOTE | 2024-11-04 18:08 | PTOPEVAL1 ---
Assessment and note entered by Benjamin Tellez, PT Evaluation Information Assessment Status Discharge Diagnosis Chronic left sided low back pain ICD-10 Condition Codes (PT) Pain in low back M54.50 Subjective Information Patient reports that she has seen no consistent change with therapy at this point. Continues to be limited by localized back pain to upper lumbar and lower thoracic spine. She received an x-ray which confirms stenosis of lower lumbar spine. Would like to continue therapy with adjustment on focus to upper back. Reported Pain Level Pain Score 1: Self Report Assessment PT Clinical Summary Patient has not seen a lot of subjective change at this point in therapy. We have seen some objective progress. Patient will benefit from skilled therapy moving forward to ensure that we are emphasizing thoracic mobility and postural periscapular strengthening to maximize conservative management. Plan of Care Interventions Gait Training,Manual Therapy,Neuro Re-education, Therapeutic Activities,Therapeutic Exercise PT Services Indicated Yes Treatment Frequency and 2x/week for 8 visits Duration These treatments will address the objective and functional deficits as defined above. The patient will be advanced safely and appropriately in order for the patient to progress towards his/her prior level of function. Additional exercises will be introduced and as well as a comprehensive home exercise program upon discharge, if needed, ?to ensure carryover of functional gains achieved in the clinic. This treatment plan has been reviewed and agreement upon by the patient.
--- NOTE | 2024-12-05 16:37 | OPREHPOC ---
Outpatient Therapy Plan of Care This is a Multidisciplinary Plan of Care that may contain components documented by all disciplines (PT, OT, and ST.) PT Problem 1 PT Problem #1 Knowledge Deficit PT Goal 1 Goal / Goal Update [place] with HEP Target Visit 4 Progress Met PT Goal 2 Goal / Goal Update Report no back pain greater than 2/10 with ambulation of 1 mile Target Visit 20 Progress Not Met PT Problem 2 PT Problem #2 Impaired Range of Motion PT Goal 1 Goal / Goal Update 1. Demonstrate -25 degrees dinorah hamstring length 2. Improve dinorah piriformis restriction to minimal bilaterally 3. Improve dinorah ankle dorsiflexion to 10+ degrees to improve terminal stance 12/05/24: Continues to work towards improved mobility Target Visit 20 Progress Partially Met PT Problem 3 PT Problem #3 Impaired Strength PT Goal 1 Goal / Goal Update 1. Improve dinorah hip abduction strength to 4+/5 to improve lateral pelvic stability with ADLs 12/05/24: Improving but lacking full strength Target Visit 20 Progress Partially Met PT Problem 4 PT Problem #4 Impaired Gait PT Goal 1 Goal / Goal Update Ambulate independent of Trendelenburg 12/05/24: More notable on some days than others Target Visit 20 Progress Partially Met
--- NOTE | 2024-12-05 16:37 | PTOPPROG ---
Assessment and note entered by Benjamin Tellez, PT Evaluation Information Assessment Status Progress Diagnosis Chronic left sided low back pain ICD-10 Condition Codes (PT) Pain in low back M54.50 Subjective Information Patient states that overall she has seen progress with therapy in spinal mobility and hip mobility. She continues to struggle carrying a lot of stress in the thoracic spine and lumbar spine. Hip rotators continue to feel stiff and restricted. Overall feels he has been able to maintain decent mobility but has not yep been able to get over the position of emt intermediate pain relief for greater than a couple days at a time. Would like to continue therapy. Assessment PT Clinical Summary Patient demonstrates continued restriction in hip mobility and spinal mobility at this time compounded by postural and functional activity. Limited by pain with no consistent pain management more than a couple of days at this point. Continues to work through mobility and will benefit form skilled therapy to continue to address these deficits. Plan of Care Interventions Gait Training,Manual Therapy,Neuro Re-education, Therapeutic Activities,Therapeutic Exercise PT Services Indicated Yes Treatment Frequency and 1x/week for 5 visits Duration These treatments will address the objective and functional deficits as defined above. The patient will be advanced safely and appropriately in order for the patient to progress towards his/her prior level of function. Additional exercises will be introduced and as well as a comprehensive home exercise program upon discharge, if needed, ?to ensure carryover of functional gains achieved in the clinic. This treatment plan has been reviewed and agreement upon by the patient.
== END 2024-12-29 23:59 | disposition home or self-care (01) ==
LOC: ANHPT 15:45
PROVIDERS: PCP Internal Medicine; Visit Provider Internal Medicine
DX: M54.50 Low back pain, unspecified (principal); G89.29 Other chronic pain
CPT/HCPCS: 97110; 97116; 97140; 97161; 97530

== ENCOUNTER 2024-12-30 08:24 | Outpatient (RCR) | payer BC, SELFPAY ==
--- NOTE | 2024-12-30 18:09 | OPREHPOC ---
Outpatient Therapy Plan of Care This is a Multidisciplinary Plan of Care that may contain components documented by all disciplines (PT, OT, and ST.) PT Problem 1 PT Problem #1 Knowledge Deficit PT Goal 1 Goal / Goal Update [place] with HEP Target Visit 4 Progress Met PT Goal 2 Goal / Goal Update Report no back pain greater than 2/10 with ambulation of 1 mile Target Visit 20 Progress Met PT Problem 2 PT Problem #2 Impaired Range of Motion PT Goal 1 Goal / Goal Update 1. Demonstrate -25 degrees dinorah hamstring length 2. Improve dinorah piriformis restriction to minimal bilaterally 3. Improve dinorah ankle dorsiflexion to 10+ degrees to improve terminal stance Target Visit 20 Progress Met PT Problem 3 PT Problem #3 Impaired Strength PT Goal 1 Goal / Goal Update 1. Improve dinorah hip abduction strength to 4+/5 to improve lateral pelvic stability with ADLs Target Visit 20 Progress Met PT Problem 4 PT Problem #4 Impaired Gait PT Goal 1 Goal / Goal Update Ambulate independent of Trendelenburg Target Visit 20 Progress Met
--- NOTE | 2024-12-30 18:10 | PTOPDC ---
Assessment and note entered by Benjamin Tellez, PT Evaluation Information Assessment Status Discharge Diagnosis Chronic left sided low back pain ICD-10 Condition Codes (PT) Pain in low back M54.50 Subjective Information Reports that she feels therapy has helped. She has noted decreased pain and longer stretches without . Overall she has been trying to be diligent with her frequency but has had a lot of work stress limiting her time. She reports that she feels she has understanding of HEP moving forward. Reported Pain Level Pain Score 0: Self Report Pain Score 1: Self Report Assessment PT Clinical Summary Patient met all goals for therapy and is suitable for discharge to [facility] At this time. No concerns with HEP and independent progress. needs to continue to emphasize thoracic mobility and postural stabilization. Plan of Care PT Services Indicated Yes
== END 2024-12-31 08:51 | disposition home or self-care (01) ==
LOC: ANHPT 08:24
PROVIDERS: PCP Internal Medicine; Visit Provider Internal Medicine
DX: M54.50 Low back pain, unspecified (principal); G89.29 Other chronic pain
CPT/HCPCS: 97110; 97140

== ENCOUNTER 2025-01-30 08:08 | Outpatient (CLI) | payer BC, SELFPAY ==
--- OUTSIDE RECORDS SUMMARY | 2018-03-30 04:22 | XMS_ITS | Continuity of Care Document ---
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 Name Role Phone Kari Augustine DO Unavailable Allergies, Adverse Reactions, Alerts Substance Reaction Status Criticality No Known Drug Allergies Other Active No I nformation Medications Medication Instructions Dosage Effective Dates (start - stop) Status Comments omeprazole 20 mg capsule,delayed release TAKE 1 CAPSULE DAILY - Active lisinopril 40 mg tablet TAKE 1 TABLET DAILY 40 MG - Active ibuprofen 600 mg tablet TAKE 1 TABLET 3 TIMES DAILYWITH FOOD NEEDED FOR PAIN - Active CHLORTHALID TAB 25MG TAKE 1/2 TABLET DAILY 12.5 MG 2017 - Active magnesium 250 mg tablet Take 2 tablets by mouth daily - Active NASONEX SPR 50MCG USE 2 SPRAYS NASALLY DAILY DIRECTED - Active METFORMIN TAB 500MG TAKE 1 TABLET TWICE A DAY WITH THE MORNING AND EVENING MEALS 500 MG - Active ATENOLOL TAB 100MG TAKE 1 TABLET TWICE A DAY 100 MG - Active ProAir HFA 90 mcg/actuation aerosol inhaler inhale 2 puff by inhalation route every 4 - 6 hours as needed - Active SIMVASTATIN TAB 10MG TAKE 1 TABLET AT BEDTIME - Active turmeric root extract 500 mg capsule take 1 tablet by oral route daily - Active Vitamin B-12 1,000 mcg tablet take 1 tablet by oral route every day 1 tablet - Active Vitamin B-6 50 mg capsule 1 daily - Active Vitamin D3 1,000 unit capsule take 1 capsule by oral route every day 1 capsule - Active Advance Directives Directive Yes / No Effective Date File Name No Information Encounters Encounter Description Practice Location Reason(s) For Visit Diagnoses Date Provider Providers Copied on Encounter [facility], [address], [place], [place], [address] , tel: [phone] [facility] No Information 8 Davide Pierce. [address], [address], [place]. tel:[phone] [facility], [address], [place], [place], [address] , tel: [phone] [facility] No Information 8 lAan Tatum. [address] [place] [address], [id number], [place]. tel:[phone] [facility], [address], [place], [place], [address] , [place] tel: [phone] [facility] No Information 8 Lupe Barfield. [address] [place] [address], [address], [place]. tel:[phone] [facility], [address], [place], [place], [address] , tel: [phone] [facility] Body mass index (BMI) 38.0-38.9, adultEssential hypertensionGait disorderMetabolic syndrome 8 Lupe Gaylin. [address] [place] [address], [address], [place]. tel:[phone] Referring Provider: Kari Farrell, [address] [address], [place], [address]. tel:[phone] [facility], [address], [place], [place], [address] , tel: [phone] [facility] No Information 8 Davide Kari. [address] [facility] , [address] [facility], [place], [facility], . tel:[phone] [facility], [address], [place], [place], [address] , tel: [phone] [facility] No Information 8 Wolfgang Aguirrera. [address] [place] [address], [facility], . tel:[phone] [facility], [address], [place], [place], [address] , tel: [phone] [facility] No Information 8 Davide Molinain. 509 [facility], [address] [place] [address], [facility], . tel:[phone] [facility], [address], [place], [place], [address] , tel: [phone] [facility] Body mass index (BMI) 37.0-37.9, adultEssential hypertensionRight arm pain 7 Davide Kari. 509 [facility], [address] [place] [address], [facility], [place]. tel:[phone] Referring Provider: Kari Farrell, [address] [facility] [address] [place] [address], [facility]. tel:[phone] [facility], [address], [place], [place], [address] , tel: [phone] [facility] No Information 7 Davide Kari. [address] [facility] , [address] [place] [address], [facility], [place]. tel:[phone] [facility], [address], [place], [place], [address] , tel: [phone] [facility] No Information 7 Davide Molinain. [address] [facility] , [address], [place], [facility], . tel:[phone] [facility], [address], [place], [place], [address] , tel:[phone] [facility] No Information 7 Wolfgang Benjamin. [address] [place] [address], [address], . tel:[phone] [facility], [address], [place], [place], [address] , tel: [phone] [facility] Annual physical exam 7 Wolfgang Benjamin. [address] [place] [address], [facility], [place]. tel:[phone] [facility], [address], [place], [place], [address] , tel:[phone] [facility] No Information Davide Pierce. [address] [place] [address], [address], [facility], . tel:[phone] [facility], [address], [place], [place], [address] , [place] tel: [phone] [facility] Body mass index (BMI) 37.0-37.9, adultAnnual physical exam Wolfgang Benjamin. [address] [place] [address], [facility], . tel:[phone] Referring Provider: Kari Farrell, [address] [facility] [address], [place], [facility]. tel:[phone] [facility], [address], [place], [place], [address] , [place] tel: [phone] [facility] Body mass index (BMI) 36.0-36.9, adultEssential hypertensionGait disorder 7 Davide Pierce. [address] [facility], [address] [place] [address], [facility], [place]. tel:[phone] Referring Provider: Kari Farrell [address] [facility] [address] [facility], [place], [address]. tel:[phone] [facility], [address], [place], [place], [address] , tel: [phone] [facility] Body mass index (BMI) 37.0-37.9, adultGait disorderEssential hypertension Wolfgang Benjamin. [address] [place] [address], [address], [place]. tel:[phone] Referring Provider: Kari Farrell, [address] [facility] [address] [facility], [place], [facility]. tel:[phone] [facility], [address], [place], [place], [address] , tel: [phone] [facility] Gait disorder Davide Pierce. [address] [place] [address], [address], [facility], [place]. tel:[phone] Referring Provider: Kari Farrell, [address] [facility] [address] [place] [address], [facility]. tel:[phone] [facility], [address], [place], [place], [address] , tel: [phone] [facility] Mass of left adrenal gland Davide Pierce. [address] [place] [address], [address], [address], [place]. tel:[phone] [facility], [address], [place], [place], [address] , tel: [phone] [facility] Viral upper respiratory tract infection Davide Pierce. [address] [place] [address], [address], [facility], . tel:[phone] Referring Provider: Kari Farrell, [address] [facility] [address] [place] [address], [facility]. tel:[phone] [facility], [address], [place], [place], [address] , tel: [phone] [facility] Back pain, unspecified back location, unspecified back pain laterality, unspecified chronicity 6 Augustine Kari. 509 [facility], [address], [facility], [place]. tel:[phone] [facility], [address], [place], [place], [address] , tel: [phone] [facility] Gait disorder 6 Augustine Kari. [address] [facility], [address] [facility], [place], [facility], [place]. tel:[phone] [facility], [address], [place], [place], [address] , tel: [phone] [facility] Gait disorder 6 Augustine Kari. 509 [facility], [address], [facility], . tel:[phone] [facility], [address], [place], [place], [address] , tel: [phone] [facility] Gait disorderAnosmia 6 Augustine Kari. [address] [facility], [address], [facility], . tel:[phone] Referring Provider: Kari Farrell, [address] [place] [address] [place] [address], [facility]. tel:[phone] [facility], [address], [place], [place], [address] , tel: [phone] [facility] Gait disorder 6 Augustine Kari. [address] [facility], [address] [place] [address], [facility], [place]. tel:[phone] [facility], [address], [place], [place], [address] , tel: [phone] [facility] Physical exam, annual 6 Davide Kari. [address] [facility], [address], [facility], [place]. tel:[phone] Referring Provider: Kari Farrell [address] [facility] [address], [place], [address]. tel:[phone] [facility], [address], [place], [place], [address] , tel: [phone] [facility] Obesity (BMI 30.0-34.9) 5 Davide Pierce. [address] [facility], [address], [place], [address], [place]. tel:[phone] Referring Provider: Kari Farrell, [address] [facility] [address], [place], [address]. tel:[phone] [facility], [address], [place], [place], [address] , tel: [phone] [facility] Metabolic syndromeMorbid (severe) obesity due to excess caloriesDietary counseling and surveillance 5 Lyn Pickett. [facility] [address], [place], [place], [address]. tel:[phone] Referring Provider: Kari Farrell, [address] [facility] [address] [facility], [place], [facility]. tel:[phone] [facility], [address], [place], [place], [address] , tel: [phone] [facility] Obesity (BMI 35.0-39.9 without comorbidity)Bilate ral foot painPlantar fascial fibromatosis 5 Davide Pierce. [address] [facility], [address] [place] [address], [address], [place]. tel:[phone] Referring Provider: Kari Farrell, [address] [facility] [address] [facility], [place], [address]. tel:[phone] [facility], [address], [place], [place], [address] , tel: [phone] [facility] UTI (urinary tract infection) 5 Davide Pierce. 509 [facility], [address], [address], [place]. tel:[phone] [facility], [address], [place], [place], [address] , tel: [phone] [facility] Hyperlipidemia Aug-3 1-201 5 Davide Kari. [address] [facility], [address] [address], [place], [facility], [place]. tel:[phone] [facility], [address], [place], [place], [address] , tel: [phone] [facility] HypertensionDizzin ess Syd-3 0-201 5 Augustine Kari. [address] [facility], [address] [address], [place], [facility], [place]. tel:[phone] Referring Provider: Kari Farrell, [address], [facility]. tel:[phone] [facility], [address], [place], [place], [address] , tel: [phone] [facility] DizzinessGait disorder Apr-2 8-201 5 Augustine Kari. 509 [facility], [address] [address], [place], [facility], [place]. tel:[phone] [facility], [address], [place], [place], [address] , tel: [phone] [facility] Gait disorderDizziness Apr-0 7-201 5 Davide Kari. 509 [facility], [address], [facility], [place]. tel:[phone] [facility], [address], [place], [place], [address] , [place] tel: [phone] [facility] Cough Ismael-0 6201 5 Davide Kari. [address] [facility], [address], [facility], [place]. tel:[phone] [facility], [address], [place], [place], [address] , tel: [phone] [facility] Cough Dec-2 6-201 4 Augustine Kari. [address] [facility], [address], [facility], [place]. tel:[phone] Referring Provider: Kari Farrell, [address] [facility] [address] [facility], [place], [facility]. tel:[phone] [facility], [address], [place], [place], [address] , tel: [phone] [facility] Cough Dec-2 2-201 4 Davide Kari. [address] [facility], [address] [place] [address], [facility], [place]. tel:[phone] Referring Provider: Kari Farrell, [address] [facility] [address] [facility], [place], [facility]. tel:[phone] [facility], [address], [place], [place], [address] , tel: [phone] [facility] CoughFever Dec- 2-201 4 Davide Kari. [address] [facility], [address] [place] [address], [facility], . tel:[phone] Referring Provider: Kari Farrell, [address] [facility] [address] [facility], [place], [facility]. tel:[phone] [facility], [address], [place], [place], [address] , tel: [phone] [facility] Dizziness Nov-1 0-201 4 Davide Kari. [address] [facility], [address] [place] [address], [facility], [place]. tel:[phone] Referring Provider: Kari Farrell, [address] [facility] [address] [place] [address], [facility]. tel:[phone] [facility], [address], [place], [place], [address] , [place] tel: [phone] [facility] Dizziness Oct-0 1-201 4 Davide Kari. [address] [facility], [address] [place] [address], [facility], [place]. tel:[phone] [facility], [address], [place], [place], [address] , tel: [phone] [facility] DizzinessGait disorder Sep-2 3-201 4 Davide Kari. [address] [facility], [address], [place], [address], [place]. tel:[phone] [facility], [address], [place], [place], [address] , [place] tel: [phone] [facility] Dizziness 4 Davide Pierce. [address] [facility], [address] [facility], [place], [facility], [place]. tel:[phone] Referring Provider: Krai Farrell, [address] [facility] [address] [facility], [place], [facility]. tel:[phone] [facility], [address], [place], [place], [address] , [place] tel: [phone] [facility] Annual physical exam 4 Davide Pierce. [address] [facility], [address] [place] [address], [facility], [place]. tel:[phone] Referring Provider: Kari Farrell, [address] [facility] [address] [facility], [place], [facility]. tel:[phone] [facility], [address], [place], [place], [address] , [place] tel: [phone] [facility] Hypertension 4 Davide Pierce. [address] [facility], [address] [place] [address], [facility], [place]. tel:[phone] [facility], [address], [place], [place], [address] , [place] tel: [phone] [facility] Left arm pain 4 Davide Kari. [address] [facility], [address] [facility], [place], [facility], [place]. tel:[phone] Referring Provider: Kari Farrell, [address] [facility] [address] [facility], [place], [facility]. tel:[phone] [facility], [address], [place], [place], [address] , tel: [phone] [facility] Radicular painHypertensionPe butch edema 4 Davide Pierce. [address] [facility], [address] [place] [address], [facility], . tel:[phone] Referring Provider: Kari Farrell, [address], [facility]. tel:[phone] [facility] [address], [place], [place], [address] , tel: [phone] [facility] C. difficile colitis 4 Davide Pierce. [address] [facility], [address], [facility], . tel:[phone] Referring Provider: Kari Farrell, [address] [facility] [address] [place] [address], [facility]. tel:[phone] [facility] [address], [place], [place], [address] , tel: [phone] [facility] Screening for malignant neoplasm of the rectum 3 Davide Pierce. 509 [facility], [address], [facility], . tel:[phone] Referring Provider: Kari Farrell, [address], [facility]. tel:[phone] [facility] [address], [place], [place], [address] , tel: [phone] [facility] Acute diarrheaMetabolic syndrome 3 Davide Pierce. [address] [place] [address], [address], [facility], . tel:[phone] Referring Provider: Mayelin Burton, [address] [facility] [address], [place], [address] . tel:[phone] [facility] [address], [place], [place], [address] , tel: [phone] [facility] Annual physical examDysmetabolic syndrome xHyperlipidemiaHig h blood pressureSinusitisK nee painMorbid obesityRoutine Medical Exam 3 Micheal Dick. [address] [facility], [address], [place], [place], [address]. tel:[phone] Referring Provider: Mayelin Burton, [address] [facility] [address], [place], [address] . tel:[phone] [facility], [address], [place], [place], [address] , tel: [phone] [facility] No Information 3 Wolf Rice. [address] [facility], [address], [place], [place], [address]. tel:[phone] [facility], [address], [place], [place], [address] , tel: [phone] [facility] High blood pressureHyperlipid emiaObesity, unspecifiedDysmeta bolic syndrome xSinusitis 3 Micheal Dick. [address] [facility] [address], [place], [address]. tel:[phone] Referring Provider: Mayelin Burton, [address] [facility] [address], [place], [address] . tel:[phone] [facility] [address], [place], [place], [address] , tel: [phone] [facility] Dysmetabolic syndrome xAcute bronchitisHyperlip idemiaHigh blood pressureObesity, unspecified 2 Micheal Dick. [address] [facility] [address], [place], [place], [address]. tel:[phone] Referring Provider: Mayelin Burton, [address] [facility] [address], [place], [address] . tel:[phone] [facility] [address], [place], [place], [address] , tel: [phone] [facility] Dysmetabolic syndrome xOther and unspecified hyperlipidemiaUnsp ecified essential hypertensionCervic algia 2 Micheal Dick. [address] [facility], [address], [place], [place], [address]. tel:[phone] Referring Provider: Mayelin Burton, [address] [facility] [address], [place], [address] . tel:[phone] [facility], [address], [place], [place], [address] , tel: [phone] [facility] CHRONIC SINUSITIS NOS 0-201 2 Micheal Dick. [address] [facility], [address], [place], [place], [address]. tel:[phone] Referring Provider: Mayelin Burton, [address] [facility] [address], [place], [address] . tel:[phone] [facility], [address], [place], [place], [address] , tel: [phone] [facility] Unspecified sinusitis (chronic)Backache, unspecifiedObesity , unspecified 1 Micheal Dick. [address] [facility], [address], [place], [place], [address]. tel:[phone] Referring Provider: Mayelin Burton, [address] [facility] [address], [place], [address] . tel:[phone] [facility], [address], [place], [place], [address] , [place] tel: [phone] [facility] HYPERLIPIDEMIA NEC/NOSHYPERTENSIO N NOSDYSMETABOLIC SYNDROME XOBESITY NOS Aug-2 5201 1 Micheal Dick. [address] [facility], [address], [place], [place], [address]. tel:[phone] [facility], [address], [place], [place], [address] , [place] tel: [phone] [facility] BACKACHE NOSESOPHAGEAL REFLUX Feb- 8 0 Micheal Dick. [address] [facility], [address], [place], [place], [address]. tel:[phone] [facility], [address], [place], [place], [address] , [place] tel: [phone] [facility] SIALOADENITIS Syd-0 5-200 8 Micheal Mayelin. [address] [facility], [address], [place], [place], [address]. tel:[phone] [facility], [address], [place], [place], [address] , [place] tel: [phone] [facility] CHRONIC SINUSITIS NOS Apr-0 9-200 7 Micheal Dick. [address] [facility], [address], [place], [place], [address]. tel:[phone] [facility], [address], [place], [place], [address] , [place] tel: [phone] [facility] MITRAL VALVE DISORDER May-2 5-200 6 Micheal Mayelin. [address] [facility], [address], [place], [place], [address]. tel:[phone] [facility], [address], [place], [place], [address] , [place] tel: [phone] [facility] CERVICALGIA Syd-3 0-200 5 Micheal Dick. [address] [facility], [address], [place], [place], [address]. tel:[phone] [facility], [address], [place], [address] , [place] tel: [phone] [facility] No Information Oct-0 4-200 4 Micheal Mayelin. [address] [facility], [address], [place], [place], [address]. tel:[phone] [facility], [address], [place], [place], [address] , tel: [phone] [facility] FEVER Aug-2 7-200 1 Micheal Dick. [address] [facility], [address], [place], [place], [address]. tel:[phone] [facility], [address], [place], [place], [address] , [place] tel: [phone] [facility] NEED PRPHYL VC VRL HEPAT 4-200 0 Micheal Dick. [address] [facility], [address], [place], [place], [address]. tel:[phone] Family History Family Member Type Diagnosis Age At Onset Father Problem (finding) Myocardial infarction Mother Problem (finding) COPD/HTN Problem (finding) Family history of hyper tension Immunizations Vaccine Date Status Comments Fluzone Quad , spli t virus, 0.5mL dosage administered Note: work ; Source: Other Provider Tdap refused Source: New Imm unization Record Td (adult) preservative free refused Source: New Immunization Record Influenza, injectable, quadrivalent, 0.5mL dosage administered Source: Other Provider influenza, injectable, quadrivalent, (3 years or older) administered Source: [place] [id number] - Influenza administered Source: So urce Unspecified Payers Payer name Insurance type Covered libertarian ID Authoriza tion(s) [place] [id number] [place] [id number] [place] [id number] Social History Type Description Quantity Date Captured Comments Sex Female Smoking Status No Information Chief Complaint And Reason For Visit No Information Reason For Referral Reason For Referral No Information History Of Present Illness Encounter Date Complaint History Of Prese nt Illness No Information Functional Status Date Functional Assessmen t No Information Instructions Date Instruction Additional Infor mation No Information Assessments Type Assessment Date No Information Patient Care Teams Name Effective Dates (start - stop) Status Members No Information
--- NOTE | ~2025-01-30 | XR_ITS ---
EXAMINATION: XR knee RT min 4V, XR knee LT min 4V DATE: 01/30/2025 09:37 INDICATION: Bilateral knee pain TECHNIQUE: 1. Weight bearing anteroposterior and Tubbs, sunrise, and flexed lateral views of the right knee were obtained. 2. Weight bearing anteroposterior and Tubbs, sunrise, and flexed lateral views of the left knee were obtained. COMPARISON: None. FINDINGS: Right knee: Alignment is normal. No fracture. Subtle chondrocalcinosis in the medial and lateral compartments of the right knee. Mild joint space narrowing the medial compartment the right knee. Small marginal osteophytes at the patellofemoral compartment. Mild subarticular cystlike change suggesting overlying high-grade chondromalacia at the cephalad aspect of the patellar apical ridge. No joint effusion. Soft tissues are unremarkable. Left knee: Alignment is normal. No fracture. Joint spaces in the medial and lateral compartments are relatively preserved. Small marginal osteophytes at the patellofemoral compartment with suggestion of additional patellar subarticular cystlike changes. No joint effusion. Soft tissues are unremarkable. IMPRESSION: 1. No joint effusions or acute osseous abnormality at either knee. 2. Mild osteoarthritis at the medial compartment of the right knee and at the bilateral patellofemoral compartments, the latter with suggestion of patellar subarticular cystlike changes. This along with a subtle chondrocalcinosis at the medial lateral compartments of the right knee suggests possibility of a calcium pyrophosphate deposition (CPPD) disease. Reviewed, dictated and finalized at location A. IMPRESSION: 1. No joint effusions or acute osseous abnormality at either knee. 2. Mild osteoarthritis at the medial compartment of the right knee and at the b ilateral patellofemoral compartments, the latter with suggestion of patellar terrell barticular cystlike changes. This along with a subtle chondrocalcinosis at the medial lateral compartments of the right knee suggests possibility of a calcium pyrophosphate deposition (CPPD) disease.
--- OUTSIDE RECORDS SUMMARY | 2025-01-30 08:28 | XMS_ITS | Encounter Summary ---
Author Organization [facility] Address [address] [place] [address] Care Team Providers Care Station Worker Name Role Phone Connie Maria MD Primary Care Provider Encounter Details Date Type Department Care Team (Late st Contact Info) Description 01/31/2008 Orders Only [facility] [place] Management [address] [place] [address] Scanning, Provider Social History Tobacco Use Types Packs/Day Years Used Date Smoking Tobacco: Never Assessed Comments Unknown Sex and Gender Information Value Date Recorded Sex Assigned at Not on file Legal Sex Female 3:07 AM PROPERTY INSPECTOR Gender Identity Not on file Sexual Orientation Not on file documented as of this encounter Plan of Treatment Upcoming Encounters Date Type Department Care Team (Late st Contact Info) Description 03/24/2025 7:30 AM PROPERTY INSPECTOR Hospital Encounter [facility] GI Lab [address] [place] [address] Davy Shultz MD [address] [place] [address] 03/24/2025 7:30 AM PROPERTY INSPECTOR - 03/24/2025 7:45 AM PROPERTY INSPECTOR Surgery [facility] GI Lab [address] [place] [address] Davy Shultz MD [address] [place] [address] COLONOSCOPY Scheduled Procedures Name Priority Associated Diagnoses Date/Ti me COLONOSCOPY History of colon polyps 03/24/2025 7:30 AM PROPERTY INSPECTOR documented as of this encounter Procedures Procedure [...] documented as of this encounter Care Teams Station Worker Relationship Specialty Start Date End Date Connie Maria MD PCP - General Internal Medicine 02/12/18 documented as of this encounter
--- OUTSIDE RECORDS SUMMARY | 2025-01-30 08:28 | XMS_ITS | Clinical Summary ---
Author Organization [facility] [address] Address [address] [place] [address] Care Team Providers Care Pipelayer Name Role Phone Connie Maria MD Primary [...] DAY 400 g 1 01/04/20 24 Active spironolactone (ALDACTONE) 25 mg tablet Take 1 tablet (25 mg total) by mouth daily 30 tablet 11 03/05/20 24 025 Active furosemide (LASIX) 20 mg tablet TAKE 1 TABLET DAILY NEEDED FOR SWELLING 90 tablet 1 04/02/20 24 Active omeprazole (PriLOSEC) 20 mg capsuleIndicati ons:Gastroesoph ageal reflux disease without esophagitis TAKE 1 CAPSULE DAILY 90 capsule 1 10/16/19 25 Active IBU 600 mg tablet TAKE 1 TABLET DAILY 90 tablet 1 11/26/19 25 Active lisinopriL (PRINIVIL,ZESTR IL) 40 mg tablet TAKE 1 TABLET DAILY 90 tablet 1 11/26/19 25 Active hydrALAZINE (APRESOLINE) 50 mg tabletIndicatio ns:hypertension Take 1 tablet (50 mg total) by mouth every morning 12/11/19 25 Active carvediloL (COREG) 25 mg tablet TAKE 1 TABLET TWICE DAILY WITH MEALS 180 tablet 3 01/15/20 25 Active carvediloL (COREG) 25 mg tablet Take 1 tablet (25 mg total) by mouth 2 (two) times a day with meals 180 tablet 3 02/02/20 24 025 Discontinued Active Problems Problem Noted Date Diagnosed Date [...] Encounters Date Type Department Care Team Description 12/10/2024 3:00 PM CDT Office Visit [facility] Cardiology [address] [place] [address] Olivia Paz NP Primary hypertension (Primary Dx); Dyslipidemia; Obstructive sleep apnea (adult) (pediatric) from Last 3 Months Immunizations Immunization Administration Dates Next Due Influenza, Quadrivalent, Spl it, Intramuscular 03/07/2017,02/13/2016,03/02/2015 Influenza, Quadrivalent, Spl it, Preservative Free, Intramuscular 02/27/2023 Influenza, Trivalent, Preser vative Free, Intramuscular 02/23/2024 Influenza, Unspecified 02/23/2022,2020,02/13/2020,02/12,02/12/2018 Pfizer SARS-CoV-2 Monovalent Vaccination (12+ Yrs) PURPLE 05/25/2020,05/04/2020 Tdap 02/21/2021,02/20/2020 Surgical History Surgery Date Site/Laterality Comments SPINAL FUSION c 5 c 6, discectomy CATARACT EXTRACTION 06/24/24, 07/01/24 Bilateral Medical History Medical History Date Comments Hypertension Sleep apnea MVP (mitral valve prolapse) Gallstones Arthritis Family History Medical History Relation Name Comments Diabetes Father Merle Aukamp Hearing loss Father Merallison Aukacandelaria Heart attack Father Merallison Cliffordkamp Heart disease Father Yaritza Goetz Family history of cardiac disorder - (Added by TW Conv) Alzheimer's disease Maternal Grandfather Rainer Jones Alzheimer's disease Mother Tammi Geotz Cancer Mother Tammi Goetz Hearing loss Mother Tammi Goetz Alzheimer's disease Paternal Grandmother Romi Goetz Relation Name Status Comments Father Merle Aukamp Alive Maternal Grandfather Rainer Jones Alive Mother Tammi Goetz Alive Paternal Grandmother Romi Goetz Alive Social History Tobacco Use Types Packs/Day Years Used Date Smoking Tobacco: Never Smokeless Tobacco: Never Tobacco Cessation:Counseling Given: Not Answered Alcohol Use Standard Drinks/Week Comments Yes 0 [...] on file Legal Sex Female 3:07 AM ACOUSTICAL TILE PATTERNMAKER Gender Identity Not on file Sexual Orientation Not on file Obstetrics History Last Filed Vital Signs Vital Sign Reading Time Taken Comments Blood Pressure 122/70 12/10/2024 2:56 PM CDT Pulse 76 12/10/2024 2:56 PM CDT Temperature 36.1 C (96.9 F) 09/09/2024 3:51 PM CDT Respiratory Rate 16 03/05/2024 7:20 AM CDT Oxygen Saturation 97% 12/10/2024 2:56 PM CDT Inhaled Oxygen Concentration - - Weight 115.7 kg (255 lb) 12/10/2024 2:56 PM CDT Height 167.6 cm (5' 6) 12/10/2024 2:56 PM CDT Body Mass Index 41.16 12/10/2024 2:56 PM CDT Plan of Treatment Upcoming Encounters Date Type Department Care Team (Late st Contact Info) Description 03/24/2025 7:30 AM ACOUSTICAL TILE PATTERNMAKER Hospital Encounter [facility] GI Lab [address] [place] [address] Davy Shultz MD [address] [place] [address] 03/24/2025 7:30 AM ACOUSTICAL TILE PATTERNMAKER - 03/24/2025 7:45 AM ACOUSTICAL TILE PATTERNMAKER Surgery [facility] GI Lab [address] [place] [address] Davy Shultz MD [address] [place] [address] COLONOSCOPY Scheduled Procedures Name Priority Associated Diagnoses Date/Ti me COLONOSCOPY History of colon polyps 03/24/2025 7:30 AM ACOUSTICAL TILE PATTERNMAKER Health Maintenance Due Date Last Done Comments Hepatitis C Screening 1960 Hepatitis B Screening 08/29/1979 Zoster Vaccine (1 of 2) 08/29/2011 Breast Cancer Screening-Mammogram 12/11/2024 12/12/2023, 06/02/2022, 04/24/2020, Additional history exists Cervical Cancer Screening 12/31/20242019, 01/01/2020, 06/04/2014 Covid-19 Vaccine ( season) 2025 06/04/2021, 05/25/2020, 05/04/2020 Influenza Vaccine (#1) 2025 , 02/27/2023, 02/23/2022, Additional history exists Colon Cancer Screening-Colonoscopy 03/16/2025 03/16/2020, 02/08/2016 Depression Screening 09/09/2025 09/09/2024, 03/05/2024, 03/05/2024, Additional history exists Regular Well Visit/Exam 18-64 09/09/2025 09/09/2024, 03/05/2024, 03/03/2023, Additional history exists DTaP/Tdap/Td Vaccine (3 - Td or Tdap) 02/21/2031 02/21/2021, 02/20/2020 Colon Cancer Screening-CT Colonography Discontinued 03/16/2020, 02/08/2016 Colon Cancer Screening-DNA Stool Discontinued 03/16/2020, 02/08/2016 Colon Cancer Screening-FIT Discontinued 03/16/2020, Colon Cancer Screening-Sigmoidoscopy Discontinued 03/16/2020, 02/08/2016 Pneumococcal vaccine <65 Aged Out No longer eligible based on patient's age to complete this topic Procedures Procedure Name Priority Date/Time Associated Diagnosis Comments HM MAMMOGRAPHY Routine 12/12/2023 COLONOSCOPY Routine 03/16/2020 HM PAP SMEAR WITH HPV Routine 01/01/2020 from Last 3 Months or Most Recently Relevant to Health Maintenance Results * HM MAMMOGRAPHY (12/12/2023) Mammography Normal Historical Provider HEALTH MAINTENANCE Final Result * Colonoscopy (03/16/2020) Anatomical Region Laterality Modality Other [facility] Provider ENDOSCOPY PROCEDURES Cyndi l Result * PAP SMEAR WITH HPV (01/01/2020) HM Pap smear Normal Historical Provider HEALTH MAINTENANCE Final Result from Last 3 Months or Most Recently Relevant to Health Maintenance Additional Health Concerns Infection Onset Date Last Indicated COVID19 Comment:JULY AND NEG IN 03/16/2020 03/15/2020 Insurance [employer] [place] [employer] [facility] Care Teams Pipelayer Relationship Specialty Start Date End Date Connie Maria MD PCP - General Internal Medicine 02/12/18
--- OUTSIDE RECORDS SUMMARY | 2025-01-30 08:28 | XMS_ITS | Encounter Summary ---
Author Organization [facility] Address [address] [place] [address] Care Team Providers Care Horse Racing Manager Name Role Phone Connie Maria MD Primary Care Provider Encounter Details Date Type Department Care Team (Late st Contact Info) Description 02/05/2024 Orders Only [facility] Health Information Management [address] [place] [id number] Scanning, Provider Social History Tobacco Use Types [...] points, staff should administer the PHQ-9) 0 09/04/2023 Comments No Sex and Gender Information Value Date Recorded Sex Assigned at Not on file Legal Sex Female 3:07 AM ELECTRONIC EQUIPMENT TRADES WORKER Gender Identity Not on file Sexual Orientation Not on file documented as of this encounter Plan of Treatment Upcoming Encounters Date Type Department Care Team (Late st Contact Info) Description 03/24/2025 7:30 AM ELECTRONIC EQUIPMENT TRADES WORKER Hospital Encounter [facility] GI Lab [address] [place] [address] Davy Shultz MD [address] [place] [address] 03/24/2025 7:30 AM ELECTRONIC EQUIPMENT TRADES WORKER - 03/24/2025 7:45 AM ELECTRONIC EQUIPMENT TRADES WORKER Surgery [facility] GI Lab [address] [place] [address] Davy Shultz MD [address] [place] [address] COLONOSCOPY Scheduled Procedures Name Priority Associated Diagnoses Date/Ti me COLONOSCOPY History of colon polyps 03/24/2025 7:30 AM ELECTRONIC EQUIPMENT TRADES WORKER documented as of this encounter Procedures Procedure Name Priority Date/Time Associated Diagnosis Comments SCAN - LABS 02/05/2024 documented in this encounter Results * SCAN - LABS (02/05/2024) us Provider Scanning Final Result documented in this encounter Visit Diagnoses Not on filedocumented in this encounter Additional Health Concerns Infection Onset Date Last Indicated Resolved Time COVID19 Comment:JULY AND NEG IN 03/16/2020 03/15/2020 documented as of this encounter Care Teams Horse Racing Manager Relationship Specialty Start Date End Date Connie Maria MD PCP - General Internal Medicine 02/12/18 documented as of this encounter
--- OUTSIDE RECORDS SUMMARY | 2025-01-30 08:28 | XMS_ITS | Encounter Summary ---
Author Organization [facility] Care Team Providers Care Wine Blender Name Role Phone Connie Maria MD Primary Care Provider Encounter Details Date Type Department Care Team (Latest Contact Info) Description 02/12/2018 Orders Only [facility] ProviderByron MD [address] [place] [id number] Social History Tobacco Use Types Packs/Day Years Used Date Smoking Tobacco: Never Comments Unknown Sex and Gender Information Value Date Recorded Sex Assigned at Not on file Legal Sex Female 3:07 AM WEB SITE ADMIN Gender Identity Not on file Sexual Orientation Not on file documented as of this encounter Plan of Treatment Upcoming Encounters Date Type Department Care Team (Late st Contact Info) Description 03/24/2025 7:30 AM WEB SITE ADMIN Hospital Encounter [facility] GI Lab [address] [place] [address] Davy Shultz MD [facility] [place] [address] 03/24/2025 7:30 AM WEB SITE ADMIN - 03/24/2025 7:45 AM WEB SITE ADMIN Surgery [facility] GI Lab [address] [place] [address] Davy Shultz MD [address] [place] [address] COLONOSCOPY Scheduled Procedures Name Priority Associated Diagnoses Date/Ti me COLONOSCOPY History of colon polyps 03/24/2025 7:30 AM WEB SITE ADMIN documented as of this encounter Procedures Procedure [...] CDT Ordered by an unspecified provider. [facility] Provider Final Res ult * SCAN - LABS (02/15/2018 12:00 AM CDT) Narrative 02/15/2018 12:00 AM CDT Ordered by an unspecified provider. [facility] Provider Final Res ult * CARDIOLOGY REPORT (02/15/2018 12:00 AM CDT) Anatomical Region Laterality Modality Other Narrative 02/15/2018 12:00 AM CDT Ordered by an unspecified provider. [facility] Provider CV CARDIAC SERVICES RENE RODARTE Final Result documented in this encounter Visit Diagnoses Not on filedocumented in this encounter Additional Health Concerns Infection Onset Date Last Indicated Resolved Time COVID: Suspected 09/03/2019 09/03/2019 09/17/2019 3:06 AM CDT COVID19 Comment:JULY AND NEG IN 03/16/2020 03/15/2020 documented as of this encounter Care Teams Wine Blender Relationship Specialty Start Date End Date Connie Maria MD PCP - General Internal Medicine 02/12/18 documented as of this encounter
== END 2025-01-30 08:09 | disposition home or self-care (01) ==
PROVIDERS: PCP Internal Medicine; Visit Provider Orthopaedic Surgery
DX: M17.0 Bilateral primary osteoarthritis of knee (principal)
CPT/HCPCS: 73564

== ENCOUNTER 2025-03-31 07:18 | Outpatient (CLI) | payer BC, SELFPAY ==
[2025-04-01 07:09] LABS: TSH 2.390 uIU/mL (0.450-4.500)
== END 2025-03-31 07:19 | disposition home or self-care (01) ==
LOC: ANHLAB 07:21
PROVIDERS: PCP Internal Medicine; Visit Provider Internal Medicine
DX: R53.83 Other fatigue (principal)
CPT/HCPCS: 84439; 84443; 84481; 86376

== ENCOUNTER 2025-04-07 15:30 | Outpatient (RCR) | payer BC, SELFPAY ==
--- NOTE | 2025-03-03 16:21 | OPREHPOC ---
Outpatient Therapy Plan of Care This is a Multidisciplinary Plan of Care that may contain components documented by all disciplines (PT, OT, and ST.) PT Problem 1 PT Problem #1 Knowledge Deficit PT Goal 1 Goal / Goal Update *independent with HEP Target Visit 8 PT Problem 2 PT Problem #2 Pain PT Goal 1 Goal / Goal Update * pt report pain rating at worst of 4/10 Target Visit 8 PT Problem 3 PT Problem #3 Impaired Flexibility PT Goal 1 Goal / Goal Update increase flexibility of hips, to improve patellar tracking hamstring length with supine SLR 50' 1* R 2* L anterior hip-quad length with prone knee flexion to 125' 3* R 4* L piriformis with supine cross leg stretch to knee past mid line of body 5* R 6* L Target Visit 8 PT Problem 4 PT Problem #4 Impaired Strength PT Goal 1 Goal / Goal Update increase strength of hips and knees, to improve stability to knee joint: 1* hip extension strength of 4+/5 single leg standing x 10 seconds with good stability 2* R 3* L Target Visit 8
--- NOTE | 2025-03-03 16:21 | PTOPEVAL1 ---
Assessment and note entered by Julia Bo, PT Evaluation Information Assessment Status Evaluation ICD-10 Condition Codes (PT) Pain in right knee M25.561,Pain in left knee M25. 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 x rays report body changes in both knees. Reports increase pain with standing, walking and stairs. Since the knee injections, pain is less. With the evaluation: she has decreased flexibility of bilateral hamstrings, quad/anterior hip and piriformis muscles; lateral position of both patella; decrease strength of hip extension and IR motions. Skilled PT services are indicated for modalities to decrease pain; therapeutic exercises to increase strength and flexibility over bilateral hips and knees, with education for HEP and body mechanics. Plan of Care Interventions Electrical Stimulation,Hot Pack/Cold Pack,Manual Therapy,Neuro Re-education,Patient/Caregiver Education,Therapeutic Activities,Therapeutic Exercise,Ultrasound,Other Other Interventions taping PT Services Indicated Yes Treatment Frequency and 1-2x/wk for 8 visits Duration These treatments will address the objective and functional deficits as defined above. The patient will be advanced safely and appropriately in order for the patient to progress towards his/her prior level of function. Additional exercises will be introduced and as well as a comprehensive home exercise program upon discharge, if needed, ?to ensure carryover of functional gains achieved in the clinic. This treatment plan has been reviewed and agreement upon by the patient.
--- NOTE | 2025-04-07 16:08 | OPREHPOC ---
Outpatient Therapy Plan of Care This is a Multidisciplinary Plan of Care that may contain components documented by all disciplines (PT, OT, and ST.) PT Problem 1 PT Problem #1 Knowledge Deficit PT Goal 1 Goal / Goal Update *independent with HEP 04-07-25 d/c goal met Target Visit 8 Progress Met PT Problem 2 PT Problem #2 Pain PT Goal 1 Goal / Goal Update * pt report pain rating at worst of 08/22 04-07-25 d/c goal not met, 10/22; Target Visit 8 Progress Not Met PT Problem 3 PT Problem #3 Impaired Flexibility PT Goal 1 Goal / Goal Update increase flexibility of hips, to improve patellar tracking hamstring length with supine SLR 50' 1* R 2* L anterior hip-quad length with prone knee flexion to 125' 3* R 4* L piriformis with supine cross leg stretch to knee past mid line of body 5* R 6* L 04-07-25 d/c goals 1,2 met; # 3 & 4 improved to 120'; Target Visit 8 Progress Partially Met PT Problem 4 PT Problem #4 Impaired Strength PT Goal 1 Goal / Goal Update increase strength of hips and knees, to improve stability to knee joint: 1* hip extension strength of 4+/5 single leg standing x 10 seconds with good stability 2* R 3* L 04-07-25 d/c goals 2 & 3 met #1 is 4/5 Target Visit 8 Progress Partially Met
--- NOTE | 2025-04-07 16:08 | PTOPDC ---
Assessment and note entered by Julia Bo, PT Assessment Status Discharge ICD-10 Condition Codes (PT) Pain in right knee M25.561,Pain in left knee M25. 562,Weakness R53.1 Onset about 1 year Subjective Information knee is better, getting stronger; still some problems on stairs, have to do single step because knee hurts; ready to be finished with therapy and know I have to keep up with the exercises at home and lose some weight to help my knees. Reported Pain Level Pain Score 2: Self Report Additional Pain Score Comments pain range in the past week 0-6/10; R > L: ache, sharp pain behind the knee caps increase pain: stairs, resistance on exercise bicycle decrease pain: voltaren cream; rest, sit down Assessment PT Clinical Summary Jayne has received 8 PT sessions. With today's assessment: pain range of 0-6/10; improved self assessment 29% limitation in activity level; increase hamstring, anterior hip/ quad length and increase strength of bilateral hips and knees; education for HEP and body mechanics with sit/stand transfer. The goals were partially met. Discharge PT. She is to continue with the HEP. Plan of Care PT Services Indicated No
== END 2025-04-08 08:45 | disposition home or self-care (01) ==
LOC: ANHPT 15:30
PROVIDERS: PCP Internal Medicine; Visit Provider Orthopaedic Surgery
DX: M22.41 Chondromalacia patellae, right knee (principal); M22.42 Chondromalacia patellae, left knee
CPT/HCPCS: 97014; 97110; 97140; 97161; 97530; G0283